=== PATIENT | male | born 1930 | race Caucasian/White ===

== ENCOUNTER → 2016-10-04 | Outpatient (CLI) | payer MEDICARE, BC ==
[2016-10-04 11:50] LABS: ABSOLUTE EOSINOPHILS # (AUTO) 0.1 10^3/uL (0.0-0.6); ABSOLUTE LYMPHOCYTES (AUTO) 0.5 10^3/uL (0.5-4.7); ABSOLUTE MONOCYTES (AUTO) 0.6 10^3/uL (0.1-1.4); BASOPHILS % (AUTO) 0.4 % (0-2); EOSINOPHILS % (AUTO) 2.5 % (0-6); HEMATOCRIT 36.7 % (37.9-51.0); HEMOGLOBIN 12.4 g/dL (13.5-17.0); HGB HCT DIFFERENCE 0.5; MEAN CORPUSCULAR HEMOGLOBIN 34.3 pg (27.0-33.4); MEAN CORPUSCULAR HGB CONC 33.8 g/dL (32.0-36.0); MEAN CORPUSCULAR VOLUME 101 fl (80-97); MONOCYTES % (AUTO) 11.1 % (3-13); RED BLOOD COUNT 3.62 10^6/uL (4.35-5.55); RED CELL DISTRIBUTION WIDTH 13.1 % (11.5-14.0); WHITE BLOOD COUNT 5.3 10^3/uL (4.0-10.5)
[2016-10-04 11:51] LABS: APPEARANCE,URINE CLEAR; BILIRUBIN,URINE NEGATIVE (NEGATIVE); GLUCOSE, URINE NEGATIVE (NEGATIVE); KETONES,URINE NEGATIVE (NEGATIVE); LEUKOCYTE ESTERASE,URINE NEGATIVE (NEGATIVE); NITRITE,URINE NEGATIVE (NEGATIVE); PROTEIN,URINE NEGATIVE (NEGATIVE); URINE SPECIFIC GRAVITY 1.012; UROBILINOGEN,URINE NEGATIVE mg/dL (<2.0)
[2016-10-04 12:07] LABS: ANION GAP 14 (5-19); BLOOD UREA NITROGEN 25 mg/dL (7-20); CALCIUM 9.9 mg/dL (8.4-10.2); CARBON DIOXIDE 27 mmol/L (22-30); CHLORIDE 102 mmol/L (98-107); CHOLESTEROL 142.23 mg/dL (0-200); CREATININE RESULT 1.22 mg/dL (0.52-1.25); Direct HDL 49 mg/dL (>40); GLUCOSE 103 mg/dL (75-110); POTASSIUM 4.1 mmol/L (3.6-5.0); SODIUM 142.8 mmol/L (137-145); TRIGLYCERIDES 86 mg/dL (<150)
[2016-10-04 12:22] LABS: DIRECT LDL 77 mg/dL (<100)
== END ==
LOC: OD 10:53
PROVIDERS: ATTEND Internal Medicine Cardiovascular Disease
DX: Z79.01 Long term (current) use of anticoagulants (principal); Z79.899 Other long term (current) drug therapy; E78.2 Mixed hyperlipidemia
CPT/HCPCS: 36415; 80048; 80061; 81001; 82272; 85025; 85730

== ENCOUNTER → 2016-11-09 | Outpatient (CLI) | payer MEDICARE, BC ==
[2016-11-09 10:15] LABS: ABSOLUTE EOSINOPHILS # (AUTO) 0.1 10^3/uL (0.0-0.6); ABSOLUTE LYMPHOCYTES (AUTO) 0.6 10^3/uL (0.5-4.7); ABSOLUTE NEUT (AUTO) 6.2 10^3/uL (1.7-8.2); BASOPHILS % (AUTO) 0.3 % (0-2); EOSINOPHILS % (AUTO) 1.5 % (0-6); HEMATOCRIT 37.7 % (37.9-51.0); HEMOGLOBIN 12.8 g/dL (13.5-17.0); HGB HCT DIFFERENCE 0.7; LYMPHOCYTES % (AUTO) 7.8 % (13-45); MEAN CORPUSCULAR HEMOGLOBIN 34.7 pg (27.0-33.4); MEAN CORPUSCULAR VOLUME 102 fl (80-97); RED CELL DISTRIBUTION WIDTH 13.7 % (11.5-14.0); SEGMENTED NEUTROPHILS % (AUTO) 77.4 % (42-78)
[2016-11-09 10:41] LABS: ALANINE AMINOTRANSFERASE 31 U/L (21-72); ALBUMIN 4.2 g/dL (3.5-5.0); ALKALINE PHOSPHATASE 82 U/L (38-126); ANION GAP 13 (5-19); ASPARTATE AMINO TRANSFERASE 25 U/L (17-59); BLOOD UREA NITROGEN 30 mg/dL (7-20); CALCIUM 10.2 mg/dL (8.4-10.2); CARBON DIOXIDE 27 mmol/L (22-30); CHLORIDE 100 mmol/L (98-107); Direct HDL 44 mg/dL (>40); GLUCOSE 103 mg/dL (75-110); POTASSIUM 4.6 mmol/L (3.6-5.0); SODIUM 140.4 mmol/L (137-145); TRIGLYCERIDES 153 mg/dL (<150)
[2016-11-09 10:52] LABS: DIRECT LDL 71 mg/dL (<100)
[2016-11-09 10:54] LABS: VLDL CHOLESTEROL 30.6 mg/dL (10-31)
[2016-11-10 13:38] LABS: CREATININE URINE 66.6 mg/dL (Not Estab.); MICROALBUMIN URINE 28.1 ug/mL (Not Estab.)
== END ==
LOC: OD 09:09
PROVIDERS: ATTEND Internal Medicine Nephrology
DX: N18.3 Chronic kidney disease, stage 3 (moderate) (principal); E78.2 Mixed hyperlipidemia; D64.9 Anemia, unspecified
CPT/HCPCS: 36415; 80053; 80061; 82043; 82570; 85025

== ENCOUNTER → 2016-12-26 | Outpatient (CLI) | payer MEDICARE, BC ==
[2016-12-26 11:21] LABS: ABSOLUTE EOSINOPHILS # (AUTO) 0.2 10^3/uL (0.0-0.6); ABSOLUTE LYMPHOCYTES (AUTO) 0.6 10^3/uL (0.5-4.7); ABSOLUTE MONOCYTES (AUTO) 0.7 10^3/uL (0.1-1.4); ABSOLUTE NEUT (AUTO) 3.9 10^3/uL (1.7-8.2); BASOPHILS % (AUTO) 0.6 % (0-2); EOSINOPHILS % (AUTO) 3.1 % (0-6); HEMOGLOBIN 12.5 g/dL (13.5-17.0); HGB HCT DIFFERENCE 1.5; LYMPHOCYTES % (AUTO) 11.8 % (13-45); MEAN CORPUSCULAR HEMOGLOBIN 34.5 pg (27.0-33.4); MEAN CORPUSCULAR HGB CONC 34.8 g/dL (32.0-36.0); MEAN CORPUSCULAR VOLUME 99 fl (80-97); MONOCYTES % (AUTO) 12.4 % (3-13); RED BLOOD COUNT 3.63 10^6/uL (4.35-5.55); RED CELL DISTRIBUTION WIDTH 13.6 % (11.5-14.0); SEGMENTED NEUTROPHILS % (AUTO) 72.1 % (42-78); WHITE BLOOD COUNT 5.4 10^3/uL (4.0-10.5)
[2016-12-26 11:40] LABS: APPEARANCE,URINE CLEAR; BILIRUBIN,URINE NEGATIVE (NEGATIVE); GLUCOSE, URINE NEGATIVE (NEGATIVE); KETONES,URINE NEGATIVE (NEGATIVE); LEUKOCYTE ESTERASE,URINE NEGATIVE (NEGATIVE); NITRITE,URINE NEGATIVE (NEGATIVE); PROTEIN,URINE NEGATIVE (NEGATIVE); URINE SPECIFIC GRAVITY 1.012; UROBILINOGEN,URINE NEGATIVE mg/dL (<2.0)
[2016-12-26 11:42] LABS: ALANINE AMINOTRANSFERASE 29 U/L (21-72); ALBUMIN 4.3 g/dL (3.5-5.0); ALKALINE PHOSPHATASE 80 U/L (38-126); ANION GAP 15 (5-19); ASPARTATE AMINO TRANSFERASE 26 U/L (17-59); BILIRUBIN,DIRECT 0.4 mg/dL (0.0-0.4); BILIRUBIN,TOTAL 0.8 mg/dL (0.2-1.3); BLOOD UREA NITROGEN 31 mg/dL (7-20); CALCIUM 9.9 mg/dL (8.4-10.2); CARBON DIOXIDE 26 mmol/L (22-30); CHLORIDE 104 mmol/L (98-107); CREATININE RESULT 1.23 mg/dL (0.52-1.25); GLUCOSE 105 mg/dL (75-110); POTASSIUM 4.1 mmol/L (3.6-5.0); SODIUM 144.6 mmol/L (137-145); TOTAL PROTEIN 8.1 g/dL (6.3-8.2)
== END ==
LOC: OD 10:38
PROVIDERS: ATTEND Internal Medicine Cardiovascular Disease
DX: Z79.01 Long term (current) use of anticoagulants (principal); Z79.899 Other long term (current) drug therapy
CPT/HCPCS: 36415; 80048; 80076; 81001; 82272; 85025; 85730

== ENCOUNTER → 2017-03-21 | Outpatient (CLI) | payer MEDICARE, BC ==
[2017-03-21 10:22] LABS: ABSOLUTE EOSINOPHILS # (AUTO) 0.1 10^3/uL (0.0-0.6); ABSOLUTE LYMPHOCYTES (AUTO) 0.6 10^3/uL (0.5-4.7); ABSOLUTE MONOCYTES (AUTO) 0.7 10^3/uL (0.1-1.4); ABSOLUTE NEUT (AUTO) 3.6 10^3/uL (1.7-8.2); BASOPHILS % (AUTO) 0.6 % (0-2); EOSINOPHILS % (AUTO) 2.3 % (0-6); HEMATOCRIT 35.3 % (37.9-51.0); HEMOGLOBIN 12.2 g/dL (13.5-17.0); HGB HCT DIFFERENCE 1.3; LYMPHOCYTES % (AUTO) 12.1 % (13-45); MEAN CORPUSCULAR HEMOGLOBIN 34.7 pg (27.0-33.4); MEAN CORPUSCULAR HGB CONC 34.5 g/dL (32.0-36.0); MEAN CORPUSCULAR VOLUME 101 fl (80-97); MONOCYTES % (AUTO) 14.2 % (3-13); RED BLOOD COUNT 3.51 10^6/uL (4.35-5.55); RED CELL DISTRIBUTION WIDTH 13.6 % (11.5-14.0); SEGMENTED NEUTROPHILS % (AUTO) 70.8 % (42-78); WHITE BLOOD COUNT 5.1 10^3/uL (4.0-10.5)
[2017-03-21 10:31] LABS: APPEARANCE,URINE CLEAR; BILIRUBIN,URINE NEGATIVE (NEGATIVE); GLUCOSE, URINE NEGATIVE (NEGATIVE); KETONES,URINE NEGATIVE (NEGATIVE); LEUKOCYTE ESTERASE,URINE NEGATIVE (NEGATIVE); NITRITE,URINE NEGATIVE (NEGATIVE); PROTEIN,URINE NEGATIVE (NEGATIVE); UROBILINOGEN,URINE NEGATIVE mg/dL (<2.0)
[2017-03-21 10:41] LABS: ALANINE AMINOTRANSFERASE 36 U/L (21-72); ALBUMIN 4.1 g/dL (3.5-5.0); ALKALINE PHOSPHATASE 71 U/L (38-126); ANION GAP 12 (5-19); ASPARTATE AMINO TRANSFERASE 26 U/L (17-59); BILIRUBIN,DIRECT 0.3 mg/dL (0.0-0.4); BILIRUBIN,TOTAL 0.8 mg/dL (0.2-1.3); BLOOD UREA NITROGEN 29 mg/dL (7-20); CALCIUM 9.4 mg/dL (8.4-10.2); CARBON DIOXIDE 26 mmol/L (22-30); CHLORIDE 104 mmol/L (98-107); CREATININE RESULT 1.18 mg/dL (0.52-1.25); GLUCOSE 100 mg/dL (75-110); POTASSIUM 4.1 mmol/L (3.6-5.0); SODIUM 142.4 mmol/L (137-145); TOTAL PROTEIN 7.8 g/dL (6.3-8.2)
== END ==
LOC: OD 09:15
PROVIDERS: ATTEND Internal Medicine Cardiovascular Disease
DX: Z79.01 Long term (current) use of anticoagulants (principal); Z79.899 Other long term (current) drug therapy
CPT/HCPCS: 36415; 80048; 80076; 81001; 82272; 85025; 85730

== ENCOUNTER → 2017-05-16 | Outpatient (CLI) | payer MEDICARE, BC ==
[2017-05-16 10:27] LABS: ABSOLUTE EOSINOPHILS # (AUTO) 0.1 10^3/uL (0.0-0.6); ABSOLUTE LYMPHOCYTES (AUTO) 0.7 10^3/uL (0.5-4.7); ABSOLUTE MONOCYTES (AUTO) 0.8 10^3/uL (0.1-1.4); ABSOLUTE NEUT (AUTO) 2.9 10^3/uL (1.7-8.2); EOSINOPHILS % (AUTO) 3.1 % (0-6); HEMATOCRIT 36.7 % (37.9-51.0); HEMOGLOBIN 12.9 g/dL (13.5-17.0); LYMPHOCYTES % (AUTO) 14.4 % (13-45); MEAN CORPUSCULAR HGB CONC 35.1 g/dL (32.0-36.0); MEAN CORPUSCULAR VOLUME 102 fl (80-97); MONOCYTES % (AUTO) 18.3 % (3-13); RED BLOOD COUNT 3.58 10^6/uL (4.35-5.55); RED CELL DISTRIBUTION WIDTH 13.7 % (11.5-14.0); SEGMENTED NEUTROPHILS % (AUTO) 63.2 % (42-78); WHITE BLOOD COUNT 4.6 10^3/uL (4.0-10.5)
[2017-05-16 10:50] LABS: ANION GAP 9 (5-19); BLOOD UREA NITROGEN 29 mg/dL (7-20); CALCIUM 10.2 mg/dL (8.4-10.2); CARBON DIOXIDE 29 mmol/L (22-30); CHLORIDE 102 mmol/L (98-107); CHOLESTEROL 153.92 mg/dL (0-200); Direct HDL 45 mg/dL (>40); GLUCOSE 98 mg/dL (75-110); POTASSIUM 4.2 mmol/L (3.6-5.0); SODIUM 139.8 mmol/L (137-145); TRIGLYCERIDES 188 mg/dL (<150)
[2017-05-16 11:01] LABS: DIRECT LDL 76 mg/dL (<100)
[2017-05-16 11:04] LABS: VLDL CHOLESTEROL 37.6 mg/dL (10-31)
[2017-05-17 11:40] LABS: CREATININE URINE 57.8 mg/dL (Not Estab.); MICROALBUMIN URINE 4.2 ug/mL (Not Estab.)
== END ==
LOC: OD 08:46
PROVIDERS: ATTEND Internal Medicine Nephrology
DX: N18.3 Chronic kidney disease, stage 3 (moderate) (principal); R80.9 Proteinuria, unspecified; D64.9 Anemia, unspecified; E78.2 Mixed hyperlipidemia
CPT/HCPCS: 36415; 80048; 80061; 82043; 82570; 85025

== ENCOUNTER 2017-06-03 07:42 | Inpatient (IN) | payer MEDICARE, BC ==
[2017-06-03] MEDS ORDERED: ALBUTEROL SULFATE 0.083% NEB 2.5 MG/3 ML AMPUL NEB ONE ×4 (07:59→08:07)
--- NOTE | 2017-06-03 08:08 | ER Document Report ---
ED Respiratory Problem - General Stated Complaint: DIFFICULTY BREATHING Time Seen by Provider: 06/03/17 08:03 Mode of Arrival: Medic Information source: Patient, Relative - Notes: 87-year-old male brought in by EMS because he woke up this morning shaking in in severe respiratory distress that his home oxygen 2 L nasal cannula and CPAP machine was not helping. He saw Dr. Lo and Dr. Diaz yesterday. He was started on erythromycin and steroids because of green sputum by Dr. Lo. Past medical history: Coronary artery bypass graft, CHF, COPD, pacemaker. TRAVEL OUTSIDE OF THE [place] IN LAST 30 DAYS: No - Related Data Allergies/Adverse Reactions: No Known Allergies Allergy (Verified 10/18/15 13:31) Home Medications: Current Home Medications Azithromycin 250 mg PO DAILY 06/03/17 [History] B12/FA/D3/Calc Cit/Zn Aa Chelt [Rx Balance Int Capsule] 1 cap PO DAILY PRN 06/03 [History] Bumetanide 1 mg PO BID 06/03/17 [History] Eplerenone 50 mg PO ASDIR PRN 06/03/17 [History] Finasteride 5 mg PO DAILY 06/03/17 [History] Prednisone 20 mg PO DAILY 06/03/17 [History] Past Medical History - General Information source: Patient, Relative - - Social History Smoking Status: Former Smoker Frequency of alcohol use: None Drug Abuse: None Lives with: Spouse/Significant other Family History: Reviewed & Not Pertinent - Past Medical History Cardiac Medical History: Reports: Hx Atrial Fibrillation, Hx Congestive Heart Failure, Hx 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 bypass in , Hx Coronary Artery Bypass Graft, Hx Pacemaker - medtronic, Hx Vascular Surgery - Immunizations Hx Diphtheria, Pertussis, Tetanus Vaccination: Yes Hx Pneumococcal Vaccination: 04/04/12 Review of Systems - Review of Systems Constitutional: No symptoms reported EENT: No symptoms reported Cardiovascular: No symptoms reported Respiratory: See HPI Gastrointestinal: No symptoms reported Genitourinary: No symptoms reported Male Genitourinary: No symptoms reported Musculoskeletal: No symptoms reported Skin: No symptoms reported Hematologic/Lymphatic: No symptoms reported Neurological/Psychological: No symptoms reported Physical Exam - Vital signs Vitals: Resp Pulse Ox 22 H 93 06/03/17 07:49 06/03/17 07:49 Interpretation: Hypertensive, Tachypneic, Other - paced rhythm - General General appearance: Alert, Anxious In distress: Severe - tachypnea - HEENT Head: Normocephalic, Atraumatic Eyes: Normal Pupils: PERRL Neck: Supple. No: Lymphadenopathy - Respiratory Respiratory status: Respiratory distress, Labored, Tachypnea, Other - using shoulders/neck to breath Chest status: Nontender Breath sounds: Decreased air movement, Productive cough - at home, Wheezing - mild Chest palpation: Normal - Cardiovascular Rhythm: Regular Heart sounds: Normal auscultation Murmur: No - Abdominal Inspection: Normal Distension: No distension Bowel sounds: Normal Tenderness: Nontender. No: Tender Organomegaly: No organomegaly - Back Back: Normal, Nontender - Extremities General upper extremity: Normal inspection, Nontender, Normal color, Normal ROM , Normal temperature General lower extremity: Normal inspection, Nontender, Normal color, Normal ROM , Normal temperature, Normal weight bearing. No: José Luis's sign - Neurological Neuro grossly intact: Yes Cognition: Normal Orientation: AAOx4 [place] Coma Scale Eye Opening: Spontaneous [place] Coma Scale Verbal: Oriented [place] Coma Scale Motor: Obeys Commands Kassandra Coma Scale Total: 15 Speech: Normal Motor strength normal: LUE, RUE, LLE, RLE Sensory: Normal - Psychological Associated symptoms: Normal affect, Anxious - Skin Skin Temperature: Warm Skin Moisture: Dry Skin Color: Normal Skin irregularity: negative: Rash Course - Re-evaluation Re-evalutation: 06/03/17 08:03 Dr. John is been in the room and seen the patient and agrees with the BiPAP 06/03/17 08:42 ABG oxygen 120s so the FiO2 on the BiPAP was reduced to 35%, Levaquin 750 mg IV started the lactic acid is 3.3. Will have pt admitted to dr. willoughby per dr. nicolas. Pt more comfortable and no distress after Bipap placed. 06/03/17 08:48 dr. busteed will admit to IMCU. 06/03/17 09:16 pt and his wanted me to call dr. west and let him know that he is admitted, I spoke with him. Will also notify dr. diaz per family request. 06/03/17 09:17 - Vital Signs Vital signs: Temp Pulse Resp BP Pulse Ox 99.5 F 86 20 134/56 H 91 L 06/03/17 07:50 06/03/17 07:50 06/03/17 08:13 06/03/17 08:13 06/03/17 08:28 - Laboratory Result Diagrams: 06/03/17 08:00 06/03/17 08:00 Laboratory results interpreted by me: 06/03/17 06/03/17 06/03/17 08:00 08:00 08:00 WBC 11.8 H RBC 3.51 L Hgb 12.6 L Hct 35.6 L MCV 102 H MCH 36.0 H Plt Count 141 L Seg Neutrophils % 82.6 H Lymphocytes % 6.2 L Absolute Neutrophils 9.7 H ABG pO2 ABG O2 Saturation BUN 34 H Creatinine 1.34 H Est GFR (Non-Af Amer) 51 L Glucose 153 H Lactic Acid 3.3 H Direct Bilirubin 0.6 H NT-Pro-B Natriuret Pep 06/03/17 06/03/17 08:00 08:00 WBC RBC Hgb Hct MCV MCH Plt Count Seg Neutrophils % Lymphocytes % Absolute Neutrophils ABG pO2 120.5 H ABG O2 Saturation 98.4 H BUN Creatinine Est GFR (Non-Af Amer) Glucose Lactic Acid Direct Bilirubin NT-Pro-B Natriuret Pep 3450 H Discharge - Discharge Clinical Impression: COPD exacerbation, Respiratory distress, Mild congestive heart failure Condition: Fair Disposition: ADMITTED INPATIENT Admitting Provider: Hospitalist Unit Admitted: [facility]
[2017-06-03 08:20] LABS: ABSOLUTE EOSINOPHILS # (AUTO) 0.1 10^3/uL (0.0-0.6); ABSOLUTE LYMPHOCYTES (AUTO) 0.7 10^3/uL (0.5-4.7); ABSOLUTE MONOCYTES (AUTO) 1.2 10^3/uL (0.1-1.4); ABSOLUTE NEUT (AUTO) 9.7 10^3/uL (1.7-8.2); BASOPHILS % (AUTO) 0.3 % (0-2); EOSINOPHILS % (AUTO) 0.6 % (0-6); HEMATOCRIT 35.6 % (37.9-51.0); HEMOGLOBIN 12.6 g/dL (13.5-17.0); HGB HCT DIFFERENCE 2.2; LYMPHOCYTES % (AUTO) 6.2 % (13-45); MEAN CORPUSCULAR HGB CONC 35.5 g/dL (32.0-36.0); MEAN CORPUSCULAR VOLUME 102 fl (80-97); MONOCYTES % (AUTO) 10.3 % (3-13); RED BLOOD COUNT 3.51 10^6/uL (4.35-5.55); RED CELL DISTRIBUTION WIDTH 13.6 % (11.5-14.0); SEGMENTED NEUTROPHILS % (AUTO) 82.6 % (42-78); WHITE BLOOD COUNT 11.8 10^3/uL (4.0-10.5)
[2017-06-03 08:24] LABS: VENOUS BLOOD BASE EXCESS -1.5 mmol/L; VENOUS BLOOD PCO2 43.1 mmHg (35-63); VENOUS BLOOD PH 7.36 (7.30-7.42)
[2017-06-03 08:26] LABS: PROTHROMBIN TIME 15.1 SEC (11.4-15.4)
[2017-06-03 08:27] LABS: ARTERIAL BLOOD BASE EXCESS -2.1 mmol/L; ARTERIAL BLOOD O2 SATURATION 98.4 % (94-98)
[2017-06-03 08:42] LABS: ALANINE AMINOTRANSFERASE 28 U/L (21-72); ALBUMIN 4.4 g/dL (3.5-5.0); ALKALINE PHOSPHATASE 82 U/L (38-126); ANION GAP 15 (5-19); ASPARTATE AMINO TRANSFERASE 28 U/L (17-59); BILIRUBIN,DIRECT 0.6 mg/dL (0.0-0.4); BILIRUBIN,TOTAL 1.3 mg/dL (0.2-1.3); BLOOD UREA NITROGEN 34 mg/dL (7-20); CALCIUM 9.8 mg/dL (8.4-10.2); CARBON DIOXIDE 23 mmol/L (22-30); CHLORIDE 102 mmol/L (98-107); CREATINE KINASE 63 U/L (55-170); CREATININE RESULT 1.34 mg/dL (0.52-1.25); GLUCOSE 153 mg/dL (75-110); POTASSIUM 3.7 mmol/L (3.6-5.0); SODIUM 139.8 mmol/L (137-145)
--- NOTE | 2017-06-03 08:42 | RADIOLOGY REPORT (SQ) ---
EXAM DESCRIPTION: CHEST SINGLE VIEW COMPLETED DATE/TIME: 06/03/2017 8:25 am REASON FOR STUDY: bed 12 sepsis protocol COMPARISON: CT chest 12/25/2015 Chest films 12/11/2015, 10/18/2015 EXAM PARAMETERS: NUMBER OF VIEWS: One view. TECHNIQUE: Single frontal radiographic view of the chest acquired. RADIATION DOSE: NA LIMITATIONS: None. FINDINGS: LUNGS AND PLEURA: Pulmonary vascular prominence is present with mild alveolar and intersti tial edema. No pleural effusions. No pneumothorax. MEDIASTINUM AND HILAR STRUCTURES: No masses. Contour normal. HEART AND VASCULAR STRUCTURES: Post CABG. Moderate stable cardiomegaly. BONES: Osteopenic HARDWARE: Left-sided dual lead pacemaker OTHER: No other significant finding. IMPRESSION: Cardiomegaly with pulmonary vascular prominence and mild alveolar and interstitial edema TECHNICAL DOCUMENTATION: JOB ID: [id number]
[2017-06-03 08:55] LABS: CREATINE KINASE MB 2.23 ng/mL (<4.55)
[2017-06-03 08:58] LABS: TROPONIN I 0.054 ng/mL
[2017-06-03] MEDS ORDERED: LEVOFLOXACIN 750 MG/D5W RTU 750 MG/150 ML RTUPB IV SCH ×2 (09:00→10:00)
[2017-06-03] MEDS ORDERED: FUROSEMIDE INJ/PF 40 MG/4 ML SDV IV ONE (09:32)
[2017-06-03 09:33] LABS: APPEARANCE,URINE CLEAR; BILIRUBIN,URINE NEGATIVE (NEGATIVE); GLUCOSE, URINE NEGATIVE (NEGATIVE); KETONES,URINE NEGATIVE (NEGATIVE); LEUKOCYTE ESTERASE,URINE NEGATIVE (NEGATIVE); NITRITE,URINE NEGATIVE (NEGATIVE); PROTEIN,URINE NEGATIVE (NEGATIVE); UROBILINOGEN,URINE NEGATIVE mg/dL (<2.0)
[2017-06-03] MEDS ORDERED: LEVALBUTEROL HCL NEB 1.25 MG/3 ML AMPUL NEB PRN (10:14)
[2017-06-03] MEDS ORDERED: ONDANSETRON HCL INJ/PF 4 MG/2 ML SDV IV PRN (10:14)
[2017-06-03] MEDS ORDERED: ACETAMINOPHEN 325 MG TABLET PO PRN (10:14)
[2017-06-03] MEDS ORDERED: ONDANSETRON 4 MG TAB.RAPDIS PO PRN (10:14)
[2017-06-03] MEDS ORDERED: D3 PO PRN (10:21)
[2017-06-03] MEDS ORDERED: B12 PO PRN (10:21)
[2017-06-03] MEDS ORDERED: FLUTICASONE/SALMETEROL DISKUS 500-50 MCG/DOSE IH PRN (10:21)
[2017-06-03] MEDS ORDERED: EPLERENONE 50 MG PO PRN (10:21)
[2017-06-03] MEDS ORDERED: [UNRECOGNIZED DRUG - OTHER] PO PRN (10:21)
--- NOTE | 2017-06-03 11:02 | PDOC H&P ---
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 The patient yesterday when he had worsening symptoms and choked on a piece of lettuce and had a coughing spell. This morning he reports that he woke up with a low-grade fever along with wheezing this morning about 5 AM. Presented to the emergency room. He denied having any chest pain. He has had the shortness of breath and wheezing. He has had also a productive cough of yellow sputum. He denies any orthopnea or PND but does have some lower extremity edema. He does have a history of congestive heart failure but denies any change in his weight. He also has COPD and obstructive sleep apnea. When he presented to emergency room he was found to have significant wheezing and was placed on BiPAP. He reports he is feeling much better now on BiPAP. Past Medical History Cardiac Medical History: Reports: Atrial Fibrillation, Congestive Heart Failure - Diastolic dysfunction, Coronary Artery Disease - CAROIDECTOMY LEFT SIDE, Myocardial Infarction, Hyperlipidema, Hypertension, Peripheral Vascular Disease Pulmonary Medical History: Reports: Asthma, Bronchitis, Chronic Obstructive Pulmonary Disease (COPD), Pneumonia, Sleep Apnea - On CPAP at home Neurological Medical History: Denies: Seizures Endocrine Medical History: Reports: None Renal/ Medical History: Reports: Chronic Kidney Disease Malignancy Medical History: Reports: Skin Cancer GI Medical History: Reports: Gastroesophageal Reflux Disease Musculoskeltal Medical History: Reports: Arthritis Psychiatric Medical History: Reports: Depression Hematology: Reports: Anemia Infectious Medical History: Reports: None Past Surgical History Past Surgical History: Reports: Coronary Artery Bypass Graft, Pacemaker - medtronic, Vascular Surgery - Left carotid endarterectomy. Endovascular AAA repair Social History Information Source: Patient Lives with: Spouse/Significant other Smoking Status: Former Smoker Frequency of Alcohol Use: None Hx Recreational Drug Use: No Drugs: None Hx Prescription Drug Abuse: No - Advance Directive Resuscitation Status: Full Code Surrogate healthcare decision maker:: Family History Family History: Father had diabetes, CVA, coronary artery disease, bladder cancer. Mother had hypertension and congestive heart failure. Parental Family History Reviewed: Yes Children Family History Reviewed: No Sibling(s) Family History Reviewed.: No Medication/Allergy Home Medications: Multivitamin [Multivitamins] 1 each PO DAILY 05/14/12 Tamsulosin HCl [Flomax 0.4 mg Cap.sr] 0.4 mg PO DAILY 05/30/12 Escitalopram Oxalate [Lexapro 10 mg Tablet] 10 mg PO DAILY #0 tablet 09/24/13 Montelukast Sodium [Singulair 10 mg Tablet] 10 mg PO QHS 04/02/14 Ferrous Sulfate [Feosol 325 mg Tablet] 325 mg PO Q2D 01/15/15 Fluticasone/Salmeterol [Advair 500-50 Diskus 28 Dose] 1 inh IH Q12H PRN Albuterol Sulfate [Proair HFA Inhalation Aerosol 8.5 gm MDI] 2 puff IH QID PRN 01/16/15 Fluticasone Propionate [Flovent Diskus 50 mcg] 1 puff IH DAILY 04/16/15 Simvastatin [Zocor 10 mg Tablet] 20 mg PO QHS #0 tablet 04/22/15 Clopidogrel Bisulfate [Clopidogrel] 75 mg PO DAILY 10/18/15 Bumetanide [Bumex 1 mg Tablet] 1 mg PO BID #0 tablet 10/20/15 Docusate Sodium [Colace 100 mg Capsule] 100 mg PO BID PRN #0 capsule 10/20/15 Losartan Potassium [Cozaar 50 mg Tablet] 100 mg PO DAILY #0 tablet 10/20/15 Azithromycin 250 mg PO DAILY 06/03/17 B12/FA/D3/Calc Cit/Zn Aa Chelt [Rx Balance Int Capsule] 1 cap PO DAILY PRN 06/03 Bumetanide 1 mg PO BID 06/03/17 Eplerenone 50 mg PO ASDIR PRN 06/03/17 Finasteride 5 mg PO DAILY 06/03/17 Prednisone 20 mg PO DAILY 06/03/17 Allergies/Adverse Reactions: No Known Allergies Allergy (Verified 10/18/15 13:31) Review of Systems Constitutional: PRESENT: fever(s). ABSENT: chills, headache(s), night sweats, weight gain, weight loss Eyes: ABSENT: visual disturbances Ears: ABSENT: hearing changes Cardiovascular: PRESENT: dyspnea on exertion, edema. ABSENT: chest pain, orthropnea, palpitations Respiratory: PRESENT: as per HPI Gastrointestinal: ABSENT: abdominal pain, constipation, diarrhea, hematemesis, hematochezia, nausea, vomiting Genitourinary: ABSENT: dysuria, hematuria Musculoskeletal: ABSENT: joint swelling Integumentary: ABSENT: rash, wounds Neurological: ABSENT: abnormal gait, abnormal speech, confusion, dizziness, focal weakness, syncope Psychiatric: ABSENT: anxiety, depression Endocrine: ABSENT: cold intolerance, heat intolerance, polydipsia, polyuria Physical Exam Vital Signs: Temp Pulse Resp BP Pulse Ox 99.5 F 86 25 H 113/78 96 06/03/17 07:50 06/03/17 07:50 06/03/17 10:01 06/03/17 10:00 06/03/17 10:01 General appearance: PRESENT: mild distress Eye exam: PRESENT: conjunctiva pink, EOMI, PERRLA. ABSENT: scleral icterus Ear exam: PRESENT: normal external ear exam Mouth exam: PRESENT: moist, tongue midline Neck exam: ABSENT: JVD Respiratory exam: PRESENT: wheezes. ABSENT: rales, rhonchi Cardiovascular exam: PRESENT: RRR. ABSENT: diastolic murmur, rubs, systolic murmur Pulses: PRESENT: normal dorsalis pedis pul Vascular exam: PRESENT: normal capillary refill GI/Abdominal exam: PRESENT: normal bowel sounds, soft. ABSENT: distended, guarding, mass, organolmegaly, rebound, tenderness Rectal exam: PRESENT: deferred Extremities exam: PRESENT: pedal edema - Trace pedal edema. ABSENT: calf tenderness, clubbing Neurological exam: PRESENT: alert, awake, oriented to person, oriented to place , oriented to time, oriented to situation, CN II-XII grossly intact. ABSENT: motor sensory deficit Psychiatric exam: PRESENT: appropriate affect Skin exam: PRESENT: dry, intact, warm. ABSENT: cyanosis, rash Results Impressions: Chest X-Ray 06/03/17 07:45 IMPRESSION: Cardiomegaly with pulmonary vascular prominence and mild alveolar and interstitial edema Assessment & Plan - Diagnosis (1) Respiratory distress Is this a current diagnosis for this admission?: Yes Plan: The patient presents with acute respiratory distress secondary to an acute COPD exacerbation and bronchitis. Patient was treated with Zithromax and prednisone as an outpatient. He has improved since being placed on a BiPAP. We will give IV Solu-Medrol, Levaquin, BiPAP and nebulizers. The patient chronically is on oxygen 2 L per nasal cannula at home. (2) COPD exacerbation Is this a current diagnosis for this admission?: Yes Plan: Patient has acute COPD exacerbation secondary to bronchitis. Will continue with Levaquin, Solu-Medrol, BiPAP and oxygen. (3) Acute bronchitis Is this a current diagnosis for this admission?: Yes Plan: Will treat with Levaquin. (4) BPH (benign prostatic hyperplasia) Is this a current diagnosis for this admission?: Yes (5) CAD (coronary artery disease) Is this a current diagnosis for this admission?: Yes Plan: Patient denies any chest pain. Will continue with the Plavix. (6) CKD (chronic kidney disease), stage III Is this a current diagnosis for this admission?: Yes Plan: Patient is somewhat volume overloaded at this time. He has received IV Lasix and will continue with p.o. Bumex. (7) Essential hypertension Is this a current diagnosis for this admission?: Yes (8) Hypercholesterolemia Is this a current diagnosis for this admission?: Yes (9) Obesity Is this a current diagnosis for this admission?: Yes (10) Obstructive sleep apnea on CPAP Is this a current diagnosis for this admission?: Yes Plan: Patient is currently on BiPAP. (11) PVD (peripheral vascular disease) Is this a current diagnosis for this admission?: Yes Plan: Patient has been on Pletal. - Time Time Spent: 50 to 70 Minutes - Inpatient Certification Medical Necessity: Need Close Monitoring Due to Risk of Patient Decompensation, Need for IV Antibiotics - Plan Summary Plan Summary: Patient requests to be a full code. Will admit as a full admission as I anticipated this will require greater than a 2 midnight hospital stay.
[2017-06-03] MEDS ORDERED: MULTIVITAMIN TABLET PO ONE (13:00)
[2017-06-03] MEDS ORDERED: EPLERENONE 25 MG TABLET PO ONE (13:30)
[2017-06-03] MEDS: IPRATROPIUM/ALBUTEROL 0.5-2.5 MG/3 ML AMPUL NEB SCH ×2 (14:07→19:50)
[2017-06-03] MEDS ORDERED: BUMETANIDE INJ/PF 1 MG/4 ML SDV ONE (16:47)
[2017-06-03] MEDS ORDERED: BUMETANIDE 1 MG TABLET ONE (16:55)
--- NOTE | 2017-06-03 17:04 | EKG REPORT ---
SEVERITY:- ABNORMAL ECG - VENTRICULAR-PACED COMPLEXES : Confirmed by: Suman Elizabeth MD 03-Jun-2017 17:03:51
[2017-06-03] MEDS: BUMETANIDE 1 MG TABLET PO SCH (17:11)
[2017-06-03] MEDS: DOCUSATE SODIUM 100 MG CAPSULE PO SCH (17:12)
[2017-06-03] MEDS: METHYLPREDNISOLONE INJ 40 MG/1 ML SDV IV SCH ×2 (17:12→22:13)
[2017-06-03] MEDS: MONTELUKAST SODIUM 10 MG TABLET PO SCH (17:12)
[2017-06-03] MEDS: TAMSULOSIN HCL 0.4 MG CAP.SR.24H PO SCH (17:13)
[2017-06-03] MEDS: CILOSTAZOL 100 MG TABLET PO SCH (17:14)
[2017-06-03] MEDS: GUAIFENESIN 600 MG TABLET.SA PO SCH (17:16)
[2017-06-03] MEDS: SIMVASTATIN 10 MG TABLET PO SCH (22:13)
[2017-06-03] MEDS: FLUTICASONE/SALMETEROL DISKUS 250-50 MCG/DOSE IH SCH (22:13)
[2017-06-03] MEDS: FAMOTIDINE 20 MG TABLET PO SCH (22:14)
[2017-06-03] MEDS ORDERED: APIXABAN 2.5 MG TABLET PO ONE (23:30)
[2017-06-04] MEDS: IPRATROPIUM/ALBUTEROL 0.5-2.5 MG/3 ML AMPUL NEB SCH ×4 (02:16→19:49)
[2017-06-04] MEDS: METHYLPREDNISOLONE INJ 40 MG/1 ML SDV IV SCH ×3 (06:21→21:37)
[2017-06-04 07:17] LABS: HEMATOCRIT 31.3 % (37.9-51.0); HGB HCT DIFFERENCE 1.7; MEAN CORPUSCULAR HEMOGLOBIN 35.4 pg (27.0-33.4); MEAN CORPUSCULAR HGB CONC 35.2 g/dL (32.0-36.0); MEAN CORPUSCULAR VOLUME 101 fl (80-97); RED CELL DISTRIBUTION WIDTH 13.7 % (11.5-14.0); WHITE BLOOD COUNT 10.5 10^3/uL (4.0-10.5)
[2017-06-04 07:40] LABS: ANION GAP 15 (5-19); BLOOD UREA NITROGEN 47 mg/dL (7-20); CALCIUM 9.6 mg/dL (8.4-10.2); CARBON DIOXIDE 22 mmol/L (22-30); CHLORIDE 99 mmol/L (98-107); CREATININE RESULT 1.51 mg/dL (0.52-1.25); GLUCOSE 153 mg/dL (75-110); POTASSIUM 3.8 mmol/L (3.6-5.0); SODIUM 135.7 mmol/L (137-145)
[2017-06-04 08:34] LABS: BAND NEUTROPHILS % (MANUAL) 2 % (3-5); BASOPHILS % (MANUAL) 0 % (0-2); EOSINOPHILS % (MANUAL) 0 % (0-6); LYMPHOCYTES % (MANUAL) 5 % (13-45); TOTAL CELLS COUNTED 100
[2017-06-04 08:35] LABS: ANISOCYTOSIS SLIGHT; POLYCHROMASIA SLIGHT
[2017-06-04] MEDS: FLUTICASONE/SALMETEROL DISKUS 250-50 MCG/DOSE IH SCH ×2 (09:17→21:37)
[2017-06-04] MEDS: FINASTERIDE 5 MG TABLET PO SCH (09:18)
[2017-06-04] MEDS: CLOPIDOGREL BISULFATE 75 MG TABLET PO SCH (09:18)
[2017-06-04] MEDS: FERROUS SULFATE 325 MG TABLET PO SCH (09:19)
[2017-06-04] MEDS: LOSARTAN POTASSIUM 50 MG TABLET PO SCH (09:19)
[2017-06-04] MEDS: GUAIFENESIN 600 MG TABLET.SA PO SCH ×2 (09:20→17:07)
[2017-06-04] MEDS: ESCITALOPRAM OXALATE 10 MG TABLET PO SCH (09:20)
[2017-06-04] MEDS: FAMOTIDINE 20 MG TABLET PO SCH ×2 (09:20→21:37)
[2017-06-04] MEDS: MULTIVITAMIN TABLET PO SCH (09:20)
[2017-06-04] MEDS: CILOSTAZOL 100 MG TABLET PO SCH ×2 (09:20→15:07)
[2017-06-04] MEDS: EPLERENONE 25 MG TABLET PO SCH (09:21)
[2017-06-04] MEDS: APIXABAN 2.5 MG TABLET PO SCH ×2 (09:22→17:08)
[2017-06-04] MEDS: BUMETANIDE 1 MG TABLET PO SCH ×2 (09:37→17:07)
[2017-06-04] MEDS: DOCUSATE SODIUM 100 MG CAPSULE PO SCH ×2 (09:51→15:06)
[2017-06-04] MEDS ORDERED: ENOXAPARIN SODIUM INJ 40 MG/0.4 ML DISP.SYRIN SUBCUT SCH (10:00)
[2017-06-04] MEDS: MONTELUKAST SODIUM 10 MG TABLET PO SCH (17:07)
[2017-06-04] MEDS: TAMSULOSIN HCL 0.4 MG CAP.SR.24H PO SCH (17:07)
--- NOTE | 2017-06-04 17:53 | PDOC PROGRESS REPORT ---
Subjective Progress Note for:: 06/04/17 Subjective:: This is a follow-up visit for acute respiratory failure due to COPD exacerbation. The patient is sitting on the edge of his bed and says that he feels better overall from when he was first admitted. He gives me a detailed story about how he came into the hospital. No acute events overnight. He complains that he has not had a bowel movement. Physical Exam Vital Signs: Temp Pulse Resp BP Pulse Ox 97.6 F 61 20 121/46 L 98 06/04/17 08:34 06/04/17 08:34 06/04/17 08:34 06/04/17 08:34 06/04/17 08:34 Intake & Output 06/03/17 06/04/17 06/05/17 06:59 06:59 06:59 Intake Total 1454 12 Output Total 650 Balance 804 12 Weight 98.5 kg GENERAL: This is a well-developed well nourished, obese white male sitting on the side of his bed in no acute distress. HEART: Regular rate and rhythm. 2 out of 6 systolic ejection murmur. No rubs or gallops. LUNGS: Coarse breath sounds bilaterally with equal rise and fall of the chest. ABDOMEN: Soft, nontender, nondistended with normoactive bowel sounds EXTREMETIES: No clubbing, cyanosis or edema. 2+ peripheral pulses bilaterally. NEURO: Awake, alert and oriented 3. Cranial nerves II through XII are grossly intact. Results Laboratory Results: 06/04/17 06:26 06/04/17 06:26 06/04/17 06/04/17 06:26 06:26 WBC 10.5 RBC 3.10 L Hgb 11.0 L Hct 31.3 L MCV 101 H MCH 35.4 H MCHC 35.2 RDW 13.7 Plt Count 127 L Seg Neutrophils % Not Reportable Lymphocytes % Not Reportable Monocytes % Not Reportable Eosinophils % Not Reportable Basophils % Not Reportable Absolute Neutrophils Not Reportable Absolute Lymphocytes Not Reportable Absolute Monocytes Not Reportable Absolute Eosinophils Not Reportable Absolute Basophils Not Reportable Sodium 135.7 L Potassium 3.8 Chloride 99 Carbon Dioxide 22 Anion Gap 15 BUN 47 H Creatinine 1.51 H Est GFR ( Amer) 53 L Est GFR (Non-Af Amer) 44 L Glucose 153 H Calcium 9.6 Impressions: Chest X-Ray 06/03/17 07:45 IMPRESSION: Cardiomegaly with pulmonary vascular prominence and mild alveolar and interstitial edema Assessment & Plan - Diagnosis (1) Acute respiratory distress Plan: At baseline the patient was oxygen at home at 2 L with BiPAP and increase during the day to around 3. Currently he is on oxygen therapy and doing well. His respiratory failure secondary to acute bronchitis and exacerbation of his COPD. Treat underlying conditions. Continue various inhalers and nebulizers. (3) COPD exacerbation Is this a current diagnosis for this admission?: Yes Plan: Continue steroid therapy. Continue antibiotics. Continue oxygen. (4) Essential hypertension Is this a current diagnosis for this admission?: Yes (5) Hypercholesterolemia Is this a current diagnosis for this admission?: Yes Plan: Continue atorvastatin. (6) Obesity Qualifiers: Body mass index: BMI 35.0-35.9 Is this a current diagnosis for this admission?: Yes Plan: Weight loss through dietary changes and exercise as tolerated. (7) Obstructive sleep apnea on CPAP Is this a current diagnosis for this admission?: Yes Plan: Continue nightly BiPAP. At home he is on 2 L along with his BiPAP. (8) Hypertensive urgency Plan: This is resolved. Patient had a blood pressure 200 on admission. (9) BPH (benign prostatic hyperplasia) Is this a current diagnosis for this admission?: Yes (10) Hyponatremia Plan: This is mild. Continue to monitor. - Time Time Spent with patient: 25-34 minutes - Inpatient Certification Based on my medical assessment, after consideration of the patient's comorbidities, presenting symptoms, or acuity I expect that the services needed warrant INPATIENT care.: Yes Medical Necessity: Significant Comorbidiites Make Outpatient Treatment Too Risky
[2017-06-04] MEDS: SIMVASTATIN 10 MG TABLET PO SCH (21:37)
[2017-06-05] MEDS: IPRATROPIUM/ALBUTEROL 0.5-2.5 MG/3 ML AMPUL NEB SCH ×4 (02:14→19:48)
[2017-06-05] MEDS: METHYLPREDNISOLONE INJ 40 MG/1 ML SDV IV SCH ×3 (06:35→21:25)
[2017-06-05] MEDS: CILOSTAZOL 100 MG TABLET PO SCH ×2 (07:54→15:00)
[2017-06-05] MEDS: FLUTICASONE/SALMETEROL DISKUS 250-50 MCG/DOSE IH SCH ×2 (09:36→21:25)
[2017-06-05] MEDS: MULTIVITAMIN TABLET PO SCH (09:37)
[2017-06-05] MEDS: DOCUSATE SODIUM 100 MG CAPSULE PO SCH ×2 (09:37→17:15)
[2017-06-05] MEDS: BUMETANIDE 1 MG TABLET PO SCH ×2 (09:37→17:15)
[2017-06-05] MEDS: EPLERENONE 25 MG TABLET PO SCH (09:38)
[2017-06-05] MEDS: GUAIFENESIN 600 MG TABLET.SA PO SCH ×2 (09:38→17:15)
[2017-06-05] MEDS: FINASTERIDE 5 MG TABLET PO SCH (09:39)
[2017-06-05] MEDS: CLOPIDOGREL BISULFATE 75 MG TABLET PO SCH (09:39)
[2017-06-05] MEDS: FAMOTIDINE 20 MG TABLET PO SCH ×2 (09:39→21:25)
[2017-06-05] MEDS: ESCITALOPRAM OXALATE 10 MG TABLET PO SCH (09:39)
[2017-06-05] MEDS: LOSARTAN POTASSIUM 50 MG TABLET PO SCH (09:39)
[2017-06-05] MEDS: APIXABAN 2.5 MG TABLET PO SCH ×2 (09:40→17:16)
[2017-06-05] MEDS ORDERED: LEVOFLOXACIN 750 MG/D5W RTU 750 MG/150 ML RTUPB IV SCH (10:00)
[2017-06-05] MEDS: TAMSULOSIN HCL 0.4 MG CAP.SR.24H PO SCH (17:15)
[2017-06-05] MEDS: MONTELUKAST SODIUM 10 MG TABLET PO SCH (17:15)
[2017-06-05] MEDS: PHENOL/SODIUM PHENOLATE 100 SPRAY/177 ML BOTTLE PO PRN ×2 (17:16→21:25)
--- NOTE | 2017-06-05 17:23 | PDOC PROGRESS REPORT ---
Subjective Progress Note for:: 06/05/17 Subjective:: This is a follow-up visit for acute respiratory failure due to COPD exacerbation. Patient states that he does not feel very well today. He has a stuffy nose and is difficult for him to feel his oxygen through the nasal cannula. He also complains that he still has not had a meaningful bowel movement. Physical Exam Vital Signs: Temp Pulse Resp BP Pulse Ox 97.6 F 68 20 147/60 H 95 06/05/17 07:43 06/05/17 13:06 06/05/17 13:06 06/05/17 07:43 06/05/17 13:06 Intake & Output 06/04/17 06/05/17 06/06/17 06:59 06:59 06:59 Intake Total 1454 2073 Output Total 650 650 Balance 804 1423 Weight 98.5 kg 103 kg GENERAL: This is a well-developed well nourished, obese white male resting in bed in no acute distress. HEART: Regular rate and rhythm. 2 out of 6 systolic ejection murmur. No rubs or gallops. LUNGS: Diminished breath sounds bilaterally with equal rise and fall of the chest. ABDOMEN: Soft, nontender, nondistended with normoactive bowel sounds EXTREMETIES: No clubbing, cyanosis or edema. 2+ peripheral pulses bilaterally. NEURO: Awake, alert and oriented 3. Cranial nerves II through XII are grossly intact. Results Laboratory Results: 06/04/17 06:26 06/04/17 06:26 06/04/17 10:00 Stool Occult Blood NEGATIVE Impressions: Chest X-Ray 06/03/17 07:45 IMPRESSION: Cardiomegaly with pulmonary vascular prominence and mild alveolar and interstitial edema Assessment & Plan - Diagnosis (1) Acute and chronic respiratory failure Plan: At baseline the patient was oxygen at home at 2 L with BiPAP and increase during the day to around 3. Currently he is on oxygen therapy and doing well. His respiratory failure secondary to acute bronchitis and exacerbation of his COPD. Treat underlying conditions. Continue various inhalers and nebulizers. (2) Acute kidney injury superimposed on CKD Plan: Slightly worse today. Continue to monitor. Encourage p.o. (3) COPD exacerbation Is this a current diagnosis for this admission?: Yes Plan: Continue steroid therapy. Continue antibiotics. Continue oxygen. (4) Essential hypertension Is this a current diagnosis for this admission?: Yes (5) Hypercholesterolemia Is this a current diagnosis for this admission?: Yes Plan: Continue atorvastatin. (6) Obesity Qualifiers: Body mass index: BMI 35.0-35.9 Is this a current diagnosis for this admission?: Yes Plan: Weight loss through dietary changes and exercise as tolerated. (7) Obstructive sleep apnea on CPAP Is this a current diagnosis for this admission?: Yes Plan: Continue nightly BiPAP. At home he is on 2 L along with his BiPAP. (8) Hypertensive urgency Plan: This is resolved. Patient had a blood pressure 200 on admission. (9) BPH (benign prostatic hyperplasia) Is this a current diagnosis for this admission?: Yes (10) Hyponatremia Plan: This is mild. Continue to monitor. - Time Time Spent with patient: 15-24 minutes - Inpatient Certification Medical Necessity: Need Close Monitoring Due to Risk of Patient Decompensation
[2017-06-05] MEDS: SENNOSIDES/DOCUSATE 8.6-50 MG 1 EACH TABLET PO PRN (20:29)
[2017-06-05] MEDS: SIMVASTATIN 10 MG TABLET PO SCH (21:25)
[2017-06-06] MEDS: IPRATROPIUM/ALBUTEROL 0.5-2.5 MG/3 ML AMPUL NEB SCH ×4 (01:40→19:44)
[2017-06-06] MEDS: METHYLPREDNISOLONE INJ 40 MG/1 ML SDV IV SCH ×3 (05:35→21:40)
[2017-06-06] MEDS: SENNOSIDES/DOCUSATE 8.6-50 MG 1 EACH TABLET PO PRN (05:35)
[2017-06-06] MEDS: CILOSTAZOL 100 MG TABLET PO SCH ×2 (08:05→16:09)
[2017-06-06] MEDS: FLUTICASONE NASAL SPRAY 50 MCG/SPRY 120 SPRAY/16 GM NASL SCH (09:18)
[2017-06-06] MEDS: FLUTICASONE/SALMETEROL DISKUS 250-50 MCG/DOSE IH SCH ×2 (09:18→21:44)
[2017-06-06] MEDS: GUAIFENESIN 600 MG TABLET.SA PO SCH ×2 (09:19→17:19)
[2017-06-06] MEDS: APIXABAN 2.5 MG TABLET PO SCH (09:19)
[2017-06-06] MEDS: FAMOTIDINE 20 MG TABLET PO SCH ×2 (09:19→21:42)
[2017-06-06] MEDS: LOSARTAN POTASSIUM 50 MG TABLET PO SCH (09:19)
[2017-06-06] MEDS: MULTIVITAMIN TABLET PO SCH (09:19)
[2017-06-06] MEDS: FERROUS SULFATE 325 MG TABLET PO SCH (09:19)
[2017-06-06] MEDS: FINASTERIDE 5 MG TABLET PO SCH (09:19)
[2017-06-06] MEDS: METOPROLOL SUCCINATE 25 MG TAB.SR.24H PO SCH (09:19)
[2017-06-06] MEDS: ESCITALOPRAM OXALATE 10 MG TABLET PO SCH (09:19)
[2017-06-06] MEDS: CLOPIDOGREL BISULFATE 75 MG TABLET PO SCH (09:19)
[2017-06-06] MEDS: DOCUSATE SODIUM 100 MG CAPSULE PO SCH ×2 (09:20→17:19)
--- NOTE | 2017-06-06 16:35 | PDOC PROGRESS REPORT ---
Subjective Progress Note for:: 06/06/17 Subjective:: This is a follow-up for acute respiratory failure due to COPD exacerbation. Patient is sitting up in chair stating he is feeling better. Patient states he does not have wheezing but sometimes has chest tightness or discomfort. Patient is complaining of his bleeding hemorrhoids. Patient states that when this happens he does hold the dose of his Eliquis until the bleeding subsides. Patient states that he also takes Tylenol and a half of Valium at night for rest. Patient is no longer constipated and would like to stop the laxative. Physical Exam Vital Signs: Temp Pulse Resp BP Pulse Ox 97.6 F 65 18 156/74 H 93 06/06/17 03:08 06/06/17 03:08 06/06/17 03:41 06/06/17 03:08 06/06/17 03:41 Intake & Output 06/05/17 06/06/17 06/07/17 06:59 06:59 06:59 Intake Total 2073 1965 Output Total 650 925 Balance 1423 1040 Weight 103 kg 95.9 kg General appearance: PRESENT: no acute distress, obese, well-nourished Head exam: PRESENT: normocephalic Eye exam: PRESENT: EOMI. ABSENT: scleral icterus Mouth exam: PRESENT: moist, neck supple Teeth exam: PRESENT: other - missing dentition Neck exam: PRESENT: full ROM. ABSENT: JVD Respiratory exam: PRESENT: decreased breath sounds, other - nasal Cannula in place. ABSENT: unlabored, wheezes Cardiovascular exam: PRESENT: RRR, +S1, +S2 GI/Abdominal exam: PRESENT: normal bowel sounds, tenderness, other - Protuberant Rectal exam: PRESENT: deferred Extremities exam: PRESENT: full ROM. ABSENT: pedal edema Musculoskeletal exam: PRESENT: full ROM, normal inspection Neurological exam: PRESENT: alert, awake, oriented to person, oriented to place , oriented to time, CN II-XII grossly intact Psychiatric exam: PRESENT: normal mood Skin exam: PRESENT: intact, warm Results Laboratory Results: 06/04/17 06:26 06/04/17 06:26 Impressions: Chest X-Ray 06/03/17 07:45 IMPRESSION: Cardiomegaly with pulmonary vascular prominence and mild alveolar and interstitial edema Assessment & Plan - Diagnosis (1) Acute and chronic respiratory failure Qualifiers: Respiratory failure complication: hypoxia Is this a current diagnosis for this admission?: Yes Plan: Patient is oxygen dependent at home using 2 L. Clinically patient has improved. Patient acute exacerbations most likely due to underlying bronchitis. Patient is currently on antibiotics and steroids. Will continue nebulizers. (2) Acute kidney injury superimposed on CKD Is this a current diagnosis for this admission?: Yes Plan: Creatinine is trending up. We will stop patient's diuretics as he appears to be euvolemic at this time. Will follow-up creatinine in the morning. (3) COPD exacerbation Is this a current diagnosis for this admission?: Yes Plan: Continue steroids. Empiric antibiotics. Supplemental oxygen. Encourage activity. (4) Hypertensive urgency Is this a current diagnosis for this admission?: Yes Plan: Patient had systolic blood pressure in the 200s with respiratory symptoms i.e. shortness of breath and chest discomfort. This is now resolved. will continue current medications. (5) Hyponatremia Plan: This is mild. Could be secondary to the use of diuretics. Diuretics are not being held. Will repeat sodium levels in the morning. (6) BPH (benign prostatic hyperplasia) Qualifiers: Lower urinary tract symptom presence: unspecified whether lower urinary tract symptoms present Qualified Code(s): N40.0 - Benign prostatic hyperplasia without lower urinary tract symptoms Is this a current diagnosis for this admission?: No Plan: Patient not complaining of any symptoms right now. (7) Hypercholesterolemia Is this a current diagnosis for this admission?: Yes Plan: Continue simvastatin (8) Obstructive sleep apnea on CPAP Is this a current diagnosis for this admission?: Yes Plan: Patient use CPAP at night. Patient is supposed to have another sleep study done however due to his current hospitalization he missed this appointment. His appointment is to be recent scheduled. (9) Hemorrhoids Qualifiers: Hemorrhoid type: unspecified Qualified Code(s): K64.9 - Unspecified hemorrhoids Is this a current diagnosis for this admission?: Yes Plan: Patient started having some irritation of his hemorrhoids after having several bowel movements. Will hold patient Eliquis tonight. - Time Time Spent with patient: 15-24 minutes Anticipated discharge: Home Within: within 48 hours
[2017-06-06] MEDS: MONTELUKAST SODIUM 10 MG TABLET PO SCH (17:20)
[2017-06-06] MEDS: TAMSULOSIN HCL 0.4 MG CAP.SR.24H PO SCH (17:20)
[2017-06-06] MEDS: ACETAMINOPHEN 325 MG TABLET PO SCH (21:41)
[2017-06-06] MEDS: SIMVASTATIN 10 MG TABLET PO SCH (21:41)
[2017-06-06] MEDS: DIAZEPAM 5 MG TABLET PO SCH (21:42)
[2017-06-07] MEDS: IPRATROPIUM/ALBUTEROL 0.5-2.5 MG/3 ML AMPUL NEB SCH ×4 (01:51→19:56)
[2017-06-07] MEDS: METHYLPREDNISOLONE INJ 40 MG/1 ML SDV IV SCH (05:25)
[2017-06-07 05:49] LABS: ANION GAP 15 (5-19); BLOOD UREA NITROGEN 74 mg/dL (7-20); CALCIUM 10.5 mg/dL (8.4-10.2); CARBON DIOXIDE 23 mmol/L (22-30); CHLORIDE 101 mmol/L (98-107); CREATININE RESULT 1.98 mg/dL (0.52-1.25); GLUCOSE 158 mg/dL (75-110); POTASSIUM 4.8 mmol/L (3.6-5.0); SODIUM 138.6 mmol/L (137-145)
[2017-06-07] MEDS: CILOSTAZOL 100 MG TABLET PO SCH ×2 (08:49→15:53)
[2017-06-07] MEDS ORDERED: METHYLPREDNISOLONE INJ 40 MG/1 ML SDV IV SCH (10:00)
[2017-06-07] MEDS ORDERED: LEVOFLOXACIN 750 MG/D5W RTU 750 MG/150 ML RTUPB IV SCH (10:00)
[2017-06-07] MEDS: FLUTICASONE/SALMETEROL DISKUS 250-50 MCG/DOSE IH SCH ×2 (10:02→22:49)
[2017-06-07] MEDS: GUAIFENESIN 600 MG TABLET.SA PO SCH ×2 (10:03→18:27)
[2017-06-07] MEDS: FLUTICASONE NASAL SPRAY 50 MCG/SPRY 120 SPRAY/16 GM NASL SCH (10:03)
[2017-06-07] MEDS: MULTIVITAMIN TABLET PO SCH (10:04)
[2017-06-07] MEDS: ESCITALOPRAM OXALATE 10 MG TABLET PO SCH (10:04)
[2017-06-07] MEDS: DOCUSATE SODIUM 100 MG CAPSULE PO SCH ×2 (10:04→18:26)
[2017-06-07] MEDS: FAMOTIDINE 20 MG TABLET PO SCH ×2 (10:04→22:48)
[2017-06-07] MEDS: FINASTERIDE 5 MG TABLET PO SCH (10:04)
[2017-06-07] MEDS: CLOPIDOGREL BISULFATE 75 MG TABLET PO SCH (10:04)
[2017-06-07] MEDS: METOPROLOL SUCCINATE 25 MG TAB.SR.24H PO SCH (10:05)
--- NOTE | 2017-06-07 14:00 | PDOC PROGRESS REPORT ---
Subjective Progress Note for:: 06/07/17 Subjective:: This is a follow-up for acute respiratory failure due to COPD exacerbation. Patient sitting up in chair eating breakfast. Patient states that he is feeling better than he did yesterday however he still has some congestion. Suggested that patient use a flutter valve. Physical Exam Vital Signs: Temp Pulse Resp BP Pulse Ox 97.5 F 66 18 147/47 H 97 06/07/17 10:56 06/07/17 13:41 06/07/17 13:41 06/07/17 10:56 06/07/17 13:41 Intake & Output 06/06/17 06/07/17 06/08/17 06:59 06:59 06:59 Intake Total 1965 2511 Output Total 925 1675 Balance 1040 836 Weight 95.9 kg 102.4 kg General appearance: PRESENT: no acute distress, obese Head exam: PRESENT: normocephalic Eye exam: PRESENT: EOMI. ABSENT: scleral icterus Mouth exam: PRESENT: moist Neck exam: PRESENT: full ROM Respiratory exam: PRESENT: decreased breath sounds, other - Coarse breath sounds. ABSENT: accessory muscle use, retraction, unlabored Cardiovascular exam: PRESENT: RRR, +S1, +S2 GI/Abdominal exam: PRESENT: normal bowel sounds, tenderness Rectal exam: PRESENT: deferred Gentrourinary exam: ABSENT: indwelling catheter Extremities exam: ABSENT: pedal edema, tenderness Musculoskeletal exam: PRESENT: full ROM Neurological exam: PRESENT: alert, awake, oriented to person, oriented to place , oriented to time, CN II-XII grossly intact Psychiatric exam: PRESENT: normal mood Skin exam: PRESENT: warm Results Laboratory Results: 06/04/17 06:26 06/07/17 04:34 06/06/17 06/07/17 06/07/17 17:22 04:34 04:34 Sodium 138.6 Potassium 4.8 Chloride 101 Carbon Dioxide 23 Anion Gap 15 BUN 74 H Creatinine 1.98 H Est GFR ( Amer) 39 L Est GFR (Non-Af Amer) 32 L Glucose 158 H Calcium 10.5 H Magnesium 2.8 H 2.9 H Impressions: Chest X-Ray 06/03/17 07:45 IMPRESSION: Cardiomegaly with pulmonary vascular prominence and mild alveolar and interstitial edema Assessment & Plan - Diagnosis (1) Acute and chronic respiratory failure Qualifiers: Respiratory failure complication: hypoxia Is this a current diagnosis for this admission?: Yes Plan: Patient is oxygen dependent at home using 2 L. Clinically patient has improved. Patient acute exacerbations most likely due to underlying bronchitis oxygen condenser malfunction at home. Continue antibiotics and steroids. Transition from IV to p.o. steroids. Continue (2) Acute kidney injury superimposed on CKD Is this a current diagnosis for this admission?: Yes Plan: Creatinine continues to trend up however patient having adequate urine output. Continue holding diuretics and ARB. (3) COPD exacerbation Is this a current diagnosis for this admission?: Yes Plan: Continue steroids (transitioning to p.o. steroids) empiric antibiotics. Continue supplemental oxygen. (4) Hypertensive urgency Is this a current diagnosis for this admission?: Yes Plan: Patient had systolic blood pressure in the 200s with respiratory symptoms i.e. shortness of breath and chest discomfort. This is now resolved. will continue current medications monitor. (5) Hyponatremia Plan: Resolved. Could be secondary to the use of diuretics. (6) BPH (benign prostatic hyperplasia) Qualifiers: Lower urinary tract symptom presence: unspecified whether lower urinary tract symptoms present Qualified Code(s): N40.0 - Benign prostatic hyperplasia without lower urinary tract symptoms Is this a current diagnosis for this admission?: No Plan: Continue on flomax. (7) Hypercholesterolemia Is this a current diagnosis for this admission?: Yes Plan: Continue simvastatin (8) Obstructive sleep apnea on CPAP Is this a current diagnosis for this admission?: Yes Plan: Patient use CPAP at night. Patient is supposed to have another sleep study done however due to his current hospitalization he missed this appointment. Patient plans on rescheduling his appointment. (9) Hemorrhoids Qualifiers: Hemorrhoid type: unspecified Qualified Code(s): K64.9 - Unspecified hemorrhoids Is this a current diagnosis for this admission?: Yes - Time Time Spent with patient: 15-24 minutes Anticipated discharge: Home with Homehealth Within: within 24 hours
[2017-06-07] MEDS: MONTELUKAST SODIUM 10 MG TABLET PO SCH (18:26)
[2017-06-07] MEDS: TAMSULOSIN HCL 0.4 MG CAP.SR.24H PO SCH (18:27)
[2017-06-07] MEDS: SIMVASTATIN 10 MG TABLET PO SCH (22:48)
[2017-06-07] MEDS: DIAZEPAM 5 MG TABLET PO SCH (22:48)
[2017-06-07] MEDS: ACETAMINOPHEN 325 MG TABLET PO SCH (22:48)
[2017-06-08] MEDS: IPRATROPIUM/ALBUTEROL 0.5-2.5 MG/3 ML AMPUL NEB SCH ×2 (02:06→07:57)
[2017-06-08 05:44] LABS: ANION GAP 10 (5-19); BLOOD UREA NITROGEN 59 mg/dL (7-20); CALCIUM 10.1 mg/dL (8.4-10.2); CARBON DIOXIDE 26 mmol/L (22-30); CHLORIDE 103 mmol/L (98-107); CREATININE RESULT 1.41 mg/dL (0.52-1.25); GLUCOSE 106 mg/dL (75-110); POTASSIUM 4.5 mmol/L (3.6-5.0); SODIUM 139.3 mmol/L (137-145)
[2017-06-08] MEDS: CILOSTAZOL 100 MG TABLET PO SCH (08:16)
[2017-06-08 08:30] VITALS: BP 158/68
[2017-06-08] MEDS: GUAIFENESIN 600 MG TABLET.SA PO SCH (09:31)
[2017-06-08] MEDS: FINASTERIDE 5 MG TABLET PO SCH (09:31)
[2017-06-08] MEDS: DOCUSATE SODIUM 100 MG CAPSULE PO SCH (09:31)
[2017-06-08] MEDS: ESCITALOPRAM OXALATE 10 MG TABLET PO SCH (09:31)
[2017-06-08] MEDS: CLOPIDOGREL BISULFATE 75 MG TABLET PO SCH (09:31)
[2017-06-08] MEDS: METOPROLOL SUCCINATE 25 MG TAB.SR.24H PO SCH (09:32)
[2017-06-08] MEDS: FERROUS SULFATE 325 MG TABLET PO SCH (09:32)
[2017-06-08] MEDS: FAMOTIDINE 20 MG TABLET PO SCH (09:32)
[2017-06-08] MEDS: MULTIVITAMIN TABLET PO SCH (09:32)
[2017-06-08] MEDS: FLUTICASONE/SALMETEROL DISKUS 250-50 MCG/DOSE IH SCH (09:33)
[2017-06-08] MEDS: FLUTICASONE NASAL SPRAY 50 MCG/SPRY 120 SPRAY/16 GM NASL SCH (09:34)
[2017-06-08] MEDS ORDERED: PREDNISONE 20 MG TABLET PO SCH (10:00)
[2017-06-08] MEDS ORDERED: ONDANSETRON 4 MG TAB.RAPDIS PO PRN (10:30)
[2017-06-08] MEDS ORDERED: ONDANSETRON HCL INJ/PF 4 MG/2 ML SDV IV PRN (10:30)
[2017-06-08] MEDS ORDERED: APIXABAN 2.5 MG TABLET PO ONE (10:45)
--- NOTE | 2017-06-08 18:58 | PDOC DISCHARGE SUMMARY ---
General - Admit/Disc Date/PCP Admission Date/Primary Care Provider: 06/03/17 10:14 MARY ANN SIM MD Discharge Date: 06/08/17 - Discharge Diagnosis (1) Acute and chronic respiratory failure Is this a current diagnosis for this admission?: Yes (2) Acute kidney injury superimposed on CKD Is this a current diagnosis for this admission?: Yes (3) COPD exacerbation Is this a current diagnosis for this admission?: Yes (4) Hypertensive urgency Is this a current diagnosis for this admission?: Yes (6) BPH (benign prostatic hyperplasia) Is this a current diagnosis for this admission?: No (7) Hypercholesterolemia Is this a current diagnosis for this admission?: Yes (8) Obstructive sleep apnea on CPAP Is this a current diagnosis for this admission?: Yes (9) Hemorrhoids Is this a current diagnosis for this admission?: Yes - Additional Information Resuscitation Status: Full Code Discharge Diet: Cardiac Discharge Activity: Activity As Tolerated Home Medications: Albuterol Sulfate [Proair HFA] 2 puff IH QIDP PRN 06/03/17 Apixaban [Eliquis 2.5 mg Tablet] 2.5 mg PO BID 06/03/17 Bumetanide [Bumex 1 mg Tablet] 1 mg PO BID 06/03/17 Cholecalciferol (Vitamin D3) [Vitamin D3 1000 Unit Tablet] 2,000 unit PO DAILY 06/03/17 Cilostazol [Pletal 100 mg Tablet] 100 mg PO BID 06/03/17 Clopidogrel Bisulfate [Clopidogrel] 75 mg PO DAILY 06/03/17 Cyanocobalamin (Vitamin B-12) [Vitamin B-12 1000 mcg Tablet] 1,000 mcg PO DAILY 06/03/17 Docusate Sodium [Colace 100 mg Capsule] 100 mg PO BID 06/03/17 Eplerenone [Inspra] 50 mg PO DAILY 06/03/17 Escitalopram Oxalate [Lexapro 10 mg Tablet] 10 mg PO DAILY 06/03/17 Ferrous Sulfate [Feosol 325 mg Tablet] 325 mg PO Q2DAYS 06/03/17 Finasteride [Proscar 5 mg Tablet] 5 mg PO DAILY 06/03/17 Fluticasone Propionate [Flonase Nasal Issue 50 Mcg/Issue 16 gm] 1 spray NASL DAILY 06/03/17 Ipratropium/Albuterol Sulfate [Duoneb 3 ml Ampul] 1 vial NEB ASDIR PRN 06/03/17 Losartan Potassium [Cozaar 100 mg Tablet] 100 mg PO DAILY 06/03/17 Metoprolol Succinate [Toprol Xl 25 mg Tab.sr] 25 mg PO DAILY 06/03/17 Montelukast Sodium [Singulair 10 mg Tablet] 10 mg PO QPM 06/03/17 Multivitamin [Multiple Vitamins] 1 tab PO DAILY 06/03/17 Nitroglycerin [Nitrostat 0.4 mg (1/150 Gr) Tabs 25/Bottle] 0.4 mg SL Q5MP PRN [place]-3 Acid Ethyl Esters [Lovaza 1 gm Capsule] 1 gm PO BID 06/03/17 Simvastatin [Zocor 20 mg Tablet] 20 mg PO QHS 06/03/17 Tamsulosin HCl [Flomax 0.4 mg Cap.sr] 0.4 mg PO DAILY 06/03/17 Vitamin E (Dl,Tocopheryl Acet) [Vitamin E] 400 unit PO DAILY 06/03/17 Cilostazol [Pletal 100 mg Tablet] 100 mg PO BIDACBS tablet 06/08/17 Clopidogrel Bisulfate [Plavix 75 mg Tablet] 75 mg PO DAILY tablet 06/08/17 Diazepam [Valium 5 mg Tablet] 2.5 mg PO DAILY #0 06/08/17 Diazepam [Valium 5 mg Tablet] 2.5 mg PO QHS tablet 06/08/17 Levofloxacin [Levaquin 250 mg Tablet] 250 mg PO DAILY 5 Days #5 tablet 06/08/17 Prednisone [Deltasone 20 mg Tablet] 40 mg PO DAILY 5 Days #10 tablet 06/08/17 History of Present Illness Patient complains of: Shortness of breathe History of Present Illness: ZAHIRA ROLLINS is a 87 year old male with a history of COPD who presented to his [facility] yesterday with cough and shortness of breath and was started on Zithromax and prednisone. The patient yesterday when he had worsening symptoms and choked on a piece of lettuce and had a coughing spell. This morning he reports that he woke up with a low-grade fever along with wheezing this morning about 5 AM. Presented to the emergency room. He denied having any chest pain. He has had the shortness of breath and wheezing. He has had also a productive cough of yellow sputum. He denies any orthopnea or PND but does have some lower extremity edema. He does have a history of congestive heart failure but denies any change in his weight. He also has COPD and obstructive sleep apnea. When he presented to emergency room he was found to have significant wheezing and was placed on BiPAP. He reports he is feeling much better now on BiPAP. Hospital Course Hospital Course: Acute on chronic hypoxic respiratory failure. Patient was continued on his 2 L of oxygen which he also uses at home. Please note that patient may have had worsening symptoms due to the fact that he has acute bronchitis and that his condenser at home was not working. Patient was continued treated for his underlying bronchitis and his condenser has since been replaced. Acute on chronic kidney failure. Patient appears to have CKD stage III. Creatinine did trend up to 1.98 and did trend back down to 1.41. All patient's diuretics and ERIN was held. Patient continues to have good urinary output. COPD exacerbation patient was started on azithromycin and p.o. steroids however did not improve after taking 1 dose at home. Patient was started on Levaquin here that was renally dosed. Patient will be discharged home on Levaquin 250 mg p.o. for 5 days (this dose is safe to take with patient having a GFR of 26). Patient also discharged on prednisone 40 mg p.o. daily Hypertensive urgency. Patient presented with a systolic blood pressure in the 200s and shortness of breath with some chest discomfort which are now resolved. Patient blood pressures have significantly improved while only on metoprolol. Hyponatremia. This was mild and most likely related to the use of diuretics. This did resolve prior to discharge home. BPH. Patient not complaining of any kind of urinary symptoms during his hospitalization. Patient was continued on Flomax. Hypercholesterolemia. Patient was continued on simvastatin. Obstructive sleep apnea patient uses CPAP at night. Apparently patient is supposed to have a another sleep study however patient is currently admitted and has missed this appointment. Patient has already rescheduled his appointment. Hemorrhoids. Patient has history of hemorrhoids they started to bleed while in the hospital as patient was constipated. As a result patient Eliquis was held for a couple of doses however this has since been resumed prior to discharge. Physical Exam Vital Signs: Temp Pulse Resp BP Pulse Ox 97.6 F 66 20 158/68 H 96 06/08/17 06:56 06/08/17 07:57 06/08/17 07:57 06/08/17 06:56 06/08/17 07:57 Intake & Output 06/07/17 06/08/17 06/09/17 06:59 06:59 06:59 Intake Total 2511 2220 Output Total 1675 1380 Balance 836 840 Weight 102.4 kg 103.5 kg General appearance: PRESENT: no acute distress Head exam: PRESENT: atraumatic, normocephalic Eye exam: PRESENT: EOMI Mouth exam: PRESENT: moist Neck exam: PRESENT: full ROM. ABSENT: JVD Respiratory exam: PRESENT: clear to auscultation regi, wheezes. ABSENT: accessory muscle use, unlabored Cardiovascular exam: PRESENT: RRR, rubs, +S1, +S2 GI/Abdominal exam: PRESENT: normal bowel sounds, soft. ABSENT: tenderness Rectal exam: PRESENT: deferred Gentrourinary exam: ABSENT: indwelling catheter Extremities exam: ABSENT: pedal edema Musculoskeletal exam: PRESENT: full ROM, normal inspection. ABSENT: tenderness Neurological exam: PRESENT: alert, awake, oriented to person, oriented to place , oriented to time, oriented to situation Psychiatric exam: PRESENT: normal mood Skin exam: PRESENT: intact, warm Results Laboratory Results: 06/04/17 06:26 06/08/17 04:32 06/08/17 04:32 Sodium 139.3 Potassium 4.5 Chloride 103 Carbon Dioxide 26 Anion Gap 10 BUN 59 H Creatinine 1.41 H Est GFR ( Amer) 58 L Est GFR (Non-Af Amer) 48 L Glucose 106 Calcium 10.1 Impressions: Chest X-Ray 06/03/17 07:45 IMPRESSION: Cardiomegaly with pulmonary vascular prominence and mild alveolar and interstitial edema Plan Time Spent: Greater than 30 Minutes - Patient states he is feeling well today. Patient states that he can continue his treatment at home. Patient also states that his consent condenser is home and should be working.
== END 2017-06-08 12:45 | disposition home or self-care (01) | DRG 189 ==
LOC: ER 07:42 → EH 09:07 → UNDOADMIN 09:07 → EH 10:14 → 3N 13:57
PROVIDERS: ADMIT Internal Medicine; ATTEND Internal Medicine
DX: J96.21 Acute and chronic respiratory failure with hypoxia (principal); J44.1 Chronic obstructive pulmonary disease with (acute) exacerbation; I13.0 Hypertensive heart and chronic kidney disease with heart failure and stage 1 through stage 4 chronic kidney disease, or unspecified chronic kidney disease; E87.1 Hypo-osmolality and hyponatremia; N17.9 Acute kidney failure, unspecified; J44.0 Chronic obstructive pulmonary disease with (acute) lower respiratory infection; J20.9 Acute bronchitis, unspecified; I50.9 Heart failure, unspecified; N18.3 Chronic kidney disease, stage 3 (moderate); I48.2 Chronic atrial fibrillation; I16.0 Hypertensive urgency; I25.10 Atherosclerotic heart disease of native coronary artery without angina pectoris; E78.5 Hyperlipidemia, unspecified; I11.0 Hypertensive heart disease with heart failure; N40.0 Benign prostatic hyperplasia without lower urinary tract symptoms; G47.33 Obstructive sleep apnea (adult) (pediatric); K64.9 Unspecified hemorrhoids; E66.9 Obesity, unspecified; I25.2 Old myocardial infarction; Z99.81 Dependence on supplemental oxygen; Z95.0 Presence of cardiac pacemaker; Z95.1 Presence of aortocoronary bypass graft; Z79.51 Long term (current) use of inhaled steroids; Z79.899 Other long term (current) drug therapy; Z68.35 Body mass index [BMI] 35.0-35.9, adult
CPT/HCPCS: 36415; 71010; 80048; 80053; 81001; 82272; 82550; 82553; 82803; 83605; 83735; 83880; 84484; 85025; 85610; 87040; 87086; 93005; 93010; 94640; 94660; 99285; J1940; J1956; J2920; J3490; J7512; J7620

== ENCOUNTER → 2017-06-12 | Outpatient (CLI) | payer MEDICARE, BC ==
[2017-06-12 13:27] LABS: APPEARANCE,URINE CLEAR; BILIRUBIN,URINE NEGATIVE (NEGATIVE); GLUCOSE, URINE NEGATIVE (NEGATIVE); KETONES,URINE NEGATIVE (NEGATIVE); LEUKOCYTE ESTERASE,URINE NEGATIVE (NEGATIVE); NITRITE,URINE NEGATIVE (NEGATIVE); PROTEIN,URINE NEGATIVE (NEGATIVE); URINE SPECIFIC GRAVITY 1.009; UROBILINOGEN,URINE NEGATIVE mg/dL (<2.0)
[2017-06-12 13:36] LABS: HEMATOCRIT 36.9 % (37.9-51.0); HEMOGLOBIN 13.1 g/dL (13.5-17.0); HGB HCT DIFFERENCE 2.4; MEAN CORPUSCULAR HEMOGLOBIN 35.9 pg (27.0-33.4); MEAN CORPUSCULAR HGB CONC 35.5 g/dL (32.0-36.0); MEAN CORPUSCULAR VOLUME 101 fl (80-97); RED BLOOD COUNT 3.65 10^6/uL (4.35-5.55); RED CELL DISTRIBUTION WIDTH 13.9 % (11.5-14.0); WHITE BLOOD COUNT 10.9 10^3/uL (4.0-10.5)
[2017-06-12 13:59] LABS: ALANINE AMINOTRANSFERASE 53 U/L (21-72); ALBUMIN 3.8 g/dL (3.5-5.0); ALKALINE PHOSPHATASE 55 U/L (38-126); ANION GAP 12 (5-19); ASPARTATE AMINO TRANSFERASE 19 U/L (17-59); BILIRUBIN,DIRECT 0.5 mg/dL (0.0-0.4); BILIRUBIN,TOTAL 1.1 mg/dL (0.2-1.3); BLOOD UREA NITROGEN 53 mg/dL (7-20); CALCIUM 9.4 mg/dL (8.4-10.2); CARBON DIOXIDE 28 mmol/L (22-30); CHLORIDE 99 mmol/L (98-107); CREATININE RESULT 1.38 mg/dL (0.52-1.25); GLUCOSE 97 mg/dL (75-110); SODIUM 138.7 mmol/L (137-145); TOTAL PROTEIN 6.9 g/dL (6.3-8.2)
== END ==
LOC: OD 12:14
PROVIDERS: ATTEND Internal Medicine Cardiovascular Disease
DX: Z79.01 Long term (current) use of anticoagulants (principal); Z79.899 Other long term (current) drug therapy
CPT/HCPCS: 36415; 80048; 80076; 81001; 82272; 85027; 85730

== ENCOUNTER 2017-08-04 21:37 | Inpatient (IN) | payer MEDICARE, BC ==
[2017-08-04] MEDS ORDERED: IPRATROPIUM/ALBUTEROL 0.5-2.5 MG/3 ML AMPUL NEB ONE (21:51)
[2017-08-04] MEDS ORDERED: ASPIRIN 81 MG TABLET, CHEWABLE PO ONE (21:51)
[2017-08-04] MEDS ORDERED: ALBUTEROL SULFATE 0.083% NEB 2.5 MG/3 ML AMPUL NEB ONE (21:51)
--- NOTE | 2017-08-04 21:51 | ER Document Report ---
ED General - General Mode of Arrival: Medic Information source: Patient TRAVEL OUTSIDE OF THE [place] IN LAST 30 DAYS: No <LZUMA LAMBERT - Last Filed: 08/04/17 22:20> <DEVORA BEEBE - Last Filed: 08/05/17 01:33> - General Stated Complaint: RESPIRATORY DISTRESS Time Seen by Provider: 08/04/17 21:41 Notes: Patient is an 87 year old male with a history of COPD and asthma presents to the emergency department via EMS complaining of general malaise and productive cough with yellow sputum onset 2 days ago. EMS states upon arrival to patients home, patient had wheezing and rhonchi and a pulse ox of 93%. Patient states that he is on 2L of oxygen that he uses as needed. Patient states his associated symptoms include fever and congestion. Patient is currently on Bumex. EMS gave patient Albuterol and 125 of Solu Medrol. (LUZMA LAMBERT) - Related Data Allergies/Adverse Reactions: No Known Allergies Allergy (Verified 10/18/15 13:31) Past Medical History - General Information source: Patient, Emergency Med Personnel - Social History Smoking Status: Former Smoker Cigarette use (# per day): No Chew tobacco use (# tins/day): No Smoking Education Provided: No Frequency of alcohol use: None Family History: Reviewed & Not Pertinent - Past Medical History Cardiac Medical History: Reports: Hx Atrial Fibrillation, Hx Congestive Heart Failure - Diastolic dysfunction, Hx Coronary Artery Disease - CAROIDECTOMY LEFT SIDE, Hx Heart Attack, Hx Hypercholesterolemia, Hx Hypertension, Hx Peripheral Vascular Disease Pulmonary Medical History: Reports: Hx Asthma, Hx Bronchitis, Hx COPD, Hx Pneumonia, Hx Sleep Apnea - On CPAP at home Renal/ Medical History: Reports: Hx Benign Prostatic Hyperplasia Malignancy Medical History: Reports Hx Skin Cancer GI Medical History: Reports: Hx Gastroesophageal Reflux Disease Musculoskeltal Medical History: Reports Hx Arthritis Psychiatric Medical History: Reports: Hx Depression Past Surgical History: Reports: Hx Cardiac Surgery - quad. bypass in , Hx Coronary Artery Bypass Graft, Hx Pacemaker - medtronic, Hx Vascular Surgery - Left carotid endarterectomy. Endovascular AAA repair - Immunizations Hx Diphtheria, Pertussis, Tetanus Vaccination: Yes Hx Pneumococcal Vaccination: 04/04/12 <LUZMA LAMBERT - Last Filed: 08/04/17 22:20> Review of Systems - Review of Systems Constitutional: See HPI, Fever EENT: See HPI, Nose congestion Respiratory: See HPI, Cough, Sputum Gastrointestinal: No symptoms reported Genitourinary: No symptoms reported Male Genitourinary: No symptoms reported Musculoskeletal: No symptoms reported Skin: No symptoms reported Hematologic/Lymphatic: No symptoms reported Neurological/Psychological: No symptoms reported -: Yes All other systems reviewed and negative <FAUSTOLUZMA - Last Filed: 08/04/17 22:20> Physical Exam <LUZMA LAMBERT - Last Filed: 08/04/17 22:20> <DEVORA BEEBE - Last Filed: 08/05/17 01:33> - Vital signs Vitals: Resp Pulse Ox 17 94 08/04/17 21:46 08/04/17 21:46 - Notes Notes: GENERAL: Alert, interacts well. No acute distress. HEAD: Normocephalic, atraumatic. EYES: Pupils equal, round, and reactive to light. Extraocular movements intact. ENT: Oral mucosa moist, tongue midline. NECK: Full range of motion. Supple. Trachea midline. LUNGS: Tachypneic, tightness, shortness of breath. Decreased air movements. Poor air movements. Expiratory wheezes. HEART: Regular rate and rhythm. No murmurs, gallops, or rubs. ABDOMEN: Soft, non-tender. Non-distended. Bowel sounds present in all 4 quadrants. EXTREMITIES: Moves all 4 extremities spontaneously. Trace pitting edema to LLE, 1+ pitting edema to RLE. radial and dorsalis pedis pulses 2/4 bilaterally. No cyanosis. NEUROLOGICAL: Alert and oriented x3. Normal speech. PSYCH: Normal affect, normal mood. SKIN: Warm, dry, normal turgor. No rashes or lesions noted. (LUZMA LAMBERT) Course - Laboratory Result Diagrams: 08/04/17 21:58 08/04/17 21:58 <LUZMA LAMBERT - Last Filed: 08/04/17 22:20> - Laboratory Result Diagrams: 08/04/17 21:58 08/04/17 23:09 <DEVORA BEEBE - Last Filed: 08/05/17 01:33> - Re-evaluation Re-evalutation: 08/05/17 00:43 CBC shows chronic anemia with hemoglobin 11.8, CMP shows acute on chronic renal failure with a BUN of 27 and creatinine of 1.50, proBNP elevated 2310, troponin indeterminate 0.04. Chest x-ray shows pulmonary edema with Sharad B lines, no signs of pneumonia. Given that he does have a slightly increased oxygen requirement from baseline as well as a fever in addition to treating him with steroids, albuterol breathing treatments and Lasix he will be treated with antibiotics for a presumed bacterial exacerbation of COPD in addition to his congestive heart failure. I discussed this case with Dr. Dominguez who is covering for Dr. Diaz at this time as she is out of town and he will admit the patient to his service on the telemetry floor. 08/05/17 00:46 Hospitalist will continue to follow his hypertension in the hospital. (DEVORA BEEBE) - Vital Signs Vital signs: Temp Pulse Resp BP Pulse Ox 99.1 F 23 H 138/56 H 94 08/04/17 22:02 08/04/17 23:43 08/04/17 23:43 08/04/17 23:43 - Laboratory Laboratory results interpreted by me: 08/04/17 08/04/17 08/04/17 21:58 21:58 23:09 RBC 3.35 L Hgb 11.8 L Hct 34.2 L MCV 102 H MCH 35.2 H Lymphocytes % 7.7 L Monocytes % 15.8 H Retic Count (auto) 2.91 H BUN 27 H Creatinine 1.50 H Est GFR ( Amer) 54 L Est GFR (Non-Af Amer) 44 L Glucose 130 H Direct Bilirubin 0.6 H Creatine Kinase 26 L NT-Pro-B Natriuret Pep 08/04/17 23:09 RBC Hgb Hct MCV MCH Lymphocytes % Monocytes % Retic Count (auto) BUN Creatinine Est GFR ( Amer) Est GFR (Non-Af Amer) Glucose Direct Bilirubin Creatine Kinase NT-Pro-B Natriuret Pep 2310 H - EKG Interpretation by Me Additional EKG results interpreted by me: 08/05/17 00:44 EKG shows atrial flutter with ventricularly paced complexes, rate of 70, no ST segment elevations or depressions, right bundle branch block, left anterior hemiblock, T-wave inversions in 1 and aVL, per my interpretation. (DEVORA BEEBE) Discharge <LUZMA LAMBERT - Last Filed: 08/04/17 22:20> - Discharge Admitting Provider: Joe dominguez covering Unit Admitted: Telemetry <DEVORA BEEBE - Last Filed: 08/05/17 01:33> - Discharge Clinical Impression: CKD (chronic kidney disease), stage III, COPD exacerbation, Acute kidney injury superimposed on CKD Acute and chronic respiratory failure Qualifiers: Respiratory failure complication: hypoxia Qualified Code(s): J96.21 - Acute and chronic respiratory failure with hypoxia Congestive heart failure Qualifiers: Congestive heart failure type: unspecified congestive heart failure type Congestive heart failure chronicity: acute on chronic Qualified Code(s): I50.9 - Heart failure, unspecified Hypertension Qualifiers: Hypertension type: unspecified Qualified Code(s): I10 - Essential (primary) hypertension Condition: Fair Disposition: ADMITTED INPATIENT Scribe Attestation: 08/05/17 01:33 I personally performed the services described in the documentation, reviewed and edited the documentation which was dictated to the scribe in my presence, and it accurately records my words and actions. (DEVORA BEEBE) Scribe Documentation - Scribe Written by Galdinoibe:: Cb Zepeda, 08/04/2017 22:31 acting as scribe for :: Jarvis <LUZMA LAMBERT - Last Filed: 08/04/17 22:20>
[2017-08-04 22:32] LABS: ABSOLUTE BASOPHILS # (AUTO) 0.1 10^3/uL (0.0-0.2); ABSOLUTE EOSINOPHILS # (AUTO) 0.1 10^3/uL (0.0-0.6); ABSOLUTE LYMPHOCYTES (AUTO) 0.7 10^3/uL (0.5-4.7); ABSOLUTE MONOCYTES (AUTO) 1.3 10^3/uL (0.1-1.4); ABSOLUTE NEUT (AUTO) 6.4 10^3/uL (1.7-8.2); BASOPHILS % (AUTO) 0.7 % (0-2); EOSINOPHILS % (AUTO) 1.2 % (0-6); HEMATOCRIT 34.2 % (37.9-51.0); HEMOGLOBIN 11.8 g/dL (13.5-17.0); HGB HCT DIFFERENCE 1.2; LYMPHOCYTES % (AUTO) 7.7 % (13-45); MEAN CORPUSCULAR HEMOGLOBIN 35.2 pg (27.0-33.4); MEAN CORPUSCULAR HGB CONC 34.6 g/dL (32.0-36.0); MEAN CORPUSCULAR VOLUME 102 fl (80-97); MONOCYTES % (AUTO) 15.8 % (3-13); RED BLOOD COUNT 3.35 10^6/uL (4.35-5.55); SEGMENTED NEUTROPHILS % (AUTO) 74.6 % (42-78); WHITE BLOOD COUNT 8.5 10^3/uL (4.0-10.5)
--- NOTE | 2017-08-04 22:33 | RADIOLOGY REPORT (SQ) ---
EXAM DESCRIPTION: CHEST SINGLE VIEW COMPLETED DATE/TIME: 08/04/2017 10:15 pm REASON FOR STUDY: cough, fever, SOB COMPARISON: CT chest 12/25/2015 AP chest 06/03/2017 EXAM PARAMETERS: NUMBER OF VIEWS: One view. TECHNIQUE: Single frontal radiographic view of the chest acquired. RADIATION DOSE: NA LIMITATIONS: None. FINDINGS: LUNGS AND PLEURA: Few Sharad lines at the bases suggesting mild interstitial edema. No fluffy alveolar infiltrates worrisome for pneumonia. No pleural effusions. No pneumothorax. MEDIASTINUM AND HILAR STRUCTURES: No masses. Contour normal. HEART AND VASCULAR STRUCTURES: Stable mild cardiomegaly. Old sternotomy for CABG. BONES: No acute findings. HARDWARE: Left-sided dual lead pacemaker OTHER: No other significant finding. IMPRESSION: Few Sharad lines from mild interstitial edema TECHNICAL DOCUMENTATION: JOB ID: [id number] [employer]- All Rights Reserved
[2017-08-04] MEDS ORDERED: FUROSEMIDE INJ/PF 40 MG/4 ML SDV IV ONE (23:18)
[2017-08-04 23:38] LABS: ALANINE AMINOTRANSFERASE 38 U/L (21-72); ALBUMIN 3.9 g/dL (3.5-5.0); ALKALINE PHOSPHATASE 81 U/L (38-126); ANION GAP 14 (5-19); ASPARTATE AMINO TRANSFERASE 23 U/L (17-59); BILIRUBIN,DIRECT 0.6 mg/dL (0.0-0.4); BLOOD UREA NITROGEN 27 mg/dL (7-20); CALCIUM 9.2 mg/dL (8.4-10.2); CARBON DIOXIDE 26 mmol/L (22-30); CHLORIDE 103 mmol/L (98-107); CREATINE KINASE 26 U/L (55-170); GLUCOSE 130 mg/dL (75-110); SODIUM 142.8 mmol/L (137-145); TOTAL PROTEIN 7.3 g/dL (6.3-8.2)
[2017-08-04 23:50] LABS: CREATINE KINASE MB 0.86 ng/mL (<4.55)
[2017-08-05 00:02] LABS: TROPONIN I 0.04 ng/mL
[2017-08-05] MEDS ORDERED: LEVOFLOXACIN 750 MG/D5W RTU 750 MG/150 ML RTUPB IV ONE (00:43)
[2017-08-05] MEDS ORDERED: GUAIFENESIN SYRP 200 MG/10 ML UDC PO PRN (00:49)
[2017-08-05] MEDS ORDERED: ACETAMINOPHEN 325 MG TABLET PO PRN (00:49)
[2017-08-05] MEDS ORDERED: CHLORPHENIRAMINE MALEATE 4 MG TABLET PO ONE (00:49)
[2017-08-05] MEDS ORDERED: HYDRALAZINE HCL INJ/PF 20 MG/1 ML SDV IV PRN (00:55)
[2017-08-05 01:28] LABS: STAIN REACTIVITY CHECK ACCEPTABLE
[2017-08-05] MEDS ORDERED: FLUTICASONE NASAL SPRAY 50 MCG/SPRY 120 SPRAY/16 GM NASL ONE (01:30)
[2017-08-05] MEDS: IPRATROPIUM/ALBUTEROL 0.5-2.5 MG/3 ML AMPUL NEB SCH ×4 (02:13→21:14)
--- NOTE | 2017-08-05 02:25 | PDOC H&P ---
History of Present Illness Admission Date/PCP: 08/05/17 00:50 MARY ANN SIM MD Patient complains of: Shortness of breath History of Present Illness: ZAHIRA ROLLINS is a 87 year old male with a past medical history of COPD with chronic bronchitis, stage III chronic kidney disease, obstructive sleep apnea, coronary artery bypass graft remotely, permanent pacemaker and congestive heart failure. Patient presents after approximately 48 hours of rhinorrhea, sinus congestion, productive cough with yellow sputum and lower extremity edema. Denying chest pain, fever, chills, nausea or vomiting. In the emergency room he was found to have pulmonary vascular congestion he receives breathing treatment, empiric antibiotic, diuresis and referred the hospitalist for admission. Patient admits to dietary indiscretion over the , he denies recent change of medications. Past Medical History Cardiac Medical History: Reports: Atrial Fibrillation, Congestive Heart Failure - Diastolic dysfunction, Coronary Artery Disease - CAROIDECTOMY LEFT SIDE, Myocardial Infarction, Hyperlipidema, Hypertension, Peripheral Vascular Disease Pulmonary Medical History: Reports: Asthma, Bronchitis, Chronic Obstructive Pulmonary Disease (COPD), Pneumonia, Sleep Apnea - On CPAP at home Neurological Medical History: Denies: Seizures Malignancy Medical History: Reports: Skin Cancer GI Medical History: Reports: Gastroesophageal Reflux Disease Musculoskeltal Medical History: Reports: Arthritis Psychiatric Medical History: Reports: Depression Hematology: Reports: Anemia Past Surgical History Past Surgical History: Reports: Coronary Artery Bypass Graft, Pacemaker - medtronic, Vascular Surgery - Left carotid endarterectomy. Endovascular AAA repair Social History Smoking Status: Former Smoker Frequency of Alcohol Use: None Hx Recreational Drug Use: No Drugs: None Hx Prescription Drug Abuse: No - Advance Directive Resuscitation Status: Full Code Family History Family History: COPD Parental Family History Reviewed: Yes Children Family History Reviewed: Yes Sibling(s) Family History Reviewed.: Yes Medication/Allergy Home Medications: Albuterol Sulfate [Proair HFA] 2 puff IH QIDP PRN 06/03/17 Apixaban [Eliquis 2.5 mg Tablet] 2.5 mg PO BID 06/03/17 Bumetanide [Bumex 1 mg Tablet] 1 mg PO BID 06/03/17 Cholecalciferol (Vitamin D3) [Vitamin D3 1000 Unit Tablet] 2,000 unit PO DAILY 06/03/17 Cilostazol [Pletal 100 mg Tablet] 100 mg PO BID 06/03/17 Clopidogrel Bisulfate [Clopidogrel] 75 mg PO DAILY 06/03/17 Cyanocobalamin (Vitamin B-12) [Vitamin B-12 1000 mcg Tablet] 1,000 mcg PO DAILY 06/03/17 Docusate Sodium [Colace 100 mg Capsule] 100 mg PO BID 06/03/17 Eplerenone [Inspra] 50 mg PO DAILY 06/03/17 Escitalopram Oxalate [Lexapro 10 mg Tablet] 10 mg PO DAILY 06/03/17 Ferrous Sulfate [Feosol 325 mg Tablet] 325 mg PO Q2DAYS 06/03/17 Finasteride [Proscar 5 mg Tablet] 5 mg PO DAILY 06/03/17 Fluticasone Propionate [Flonase Nasal Robbins 50 Mcg/Robbins 16 gm] 1 spray NASL DAILY 06/03/17 Ipratropium/Albuterol Sulfate [Duoneb 3 ml Ampul] 1 vial NEB ASDIR PRN 06/03/17 Losartan Potassium [Cozaar 100 mg Tablet] 100 mg PO DAILY 06/03/17 Metoprolol Succinate [Toprol Xl 25 mg Tab.sr] 25 mg PO DAILY 06/03/17 Montelukast Sodium [Singulair 10 mg Tablet] 10 mg PO QPM 06/03/17 Multivitamin [Multiple Vitamins] 1 tab PO DAILY 06/03/17 Nitroglycerin [Nitrostat 0.4 mg (1/150 Gr) Tabs 25/Bottle] 0.4 mg SL Q5MP PRN [place]-3 Acid Ethyl Esters [Lovaza 1 gm Capsule] 1 gm PO BID 06/03/17 Simvastatin [Zocor 20 mg Tablet] 20 mg PO QHS 06/03/17 Tamsulosin HCl [Flomax 0.4 mg Cap.sr] 0.4 mg PO DAILY 06/03/17 Vitamin E (Dl,Tocopheryl Acet) [Vitamin E] 400 unit PO DAILY 06/03/17 Cilostazol [Pletal 100 mg Tablet] 100 mg PO BIDACBS tablet 06/08/17 Clopidogrel Bisulfate [Plavix 75 mg Tablet] 75 mg PO DAILY tablet 06/08/17 Diazepam [Valium 5 mg Tablet] 2.5 mg PO DAILY #0 06/08/17 Diazepam [Valium 5 mg Tablet] 2.5 mg PO QHS tablet 06/08/17 Levofloxacin [Levaquin 250 mg Tablet] 250 mg PO DAILY 5 Days #5 tablet 06/08/17 Prednisone [Deltasone 20 mg Tablet] 40 mg PO DAILY 5 Days #10 tablet 06/08/17 Allergies/Adverse Reactions: No Known Allergies Allergy (Verified 10/18/15 13:31) Review of Systems Constitutional: PRESENT: as per HPI, fatigue, weight gain. ABSENT: fever(s) Eyes: ABSENT: visual disturbances Ears: ABSENT: hearing changes Cardiovascular: ABSENT: chest pain, dyspnea on exertion, edema, orthropnea, palpitations Respiratory: PRESENT: cough, dyspnea, sputum. ABSENT: hemoptysis Gastrointestinal: ABSENT: abdominal pain, constipation, diarrhea, hematemesis, hematochezia, nausea, vomiting Genitourinary: ABSENT: dysuria, hematuria Musculoskeletal: ABSENT: joint swelling Integumentary: ABSENT: rash, wounds Neurological: ABSENT: abnormal gait, abnormal speech, confusion, dizziness, focal weakness, syncope Psychiatric: ABSENT: anxiety, depression, homidical ideation, suicidal ideation Endocrine: ABSENT: cold intolerance, heat intolerance, polydipsia, polyuria Hematologic/Lymphatic: ABSENT: easy bleeding, easy bruising Allergic/Immunologic: PRESENT: as per HPI Physical Exam Vital Signs: Temp Pulse Resp BP Pulse Ox 99.1 F 23 H 138/56 H 94 08/04/17 22:02 08/04/17 23:43 08/04/17 23:43 08/04/17 23:43 General appearance: PRESENT: cooperative, disheveled, obese Head exam: PRESENT: atraumatic, normocephalic Eye exam: PRESENT: conjunctiva pink, EOMI, PERRLA. ABSENT: scleral icterus Ear exam: PRESENT: normal external ear exam Mouth exam: PRESENT: moist, tongue midline Teeth exam: PRESENT: poor dentation Neck exam: PRESENT: JVD Respiratory exam: PRESENT: accessory muscle use, crackles, prolonged expiratory phas, symmetrical, tachypnea. ABSENT: chest wall tenderness, rhonchi, stridor Cardiovascular exam: PRESENT: irregular rhythm, RRR. ABSENT: diastolic murmur, rubs, systolic murmur Pulses: PRESENT: normal dorsalis pedis pul Vascular exam: PRESENT: normal capillary refill GI/Abdominal exam: PRESENT: normal bowel sounds, soft. ABSENT: distended, guarding, mass, organolmegaly, rebound, tenderness Rectal exam: PRESENT: deferred Extremities exam: PRESENT: +1 edema Neurological exam: PRESENT: alert, awake, oriented to person, oriented to place , oriented to time, oriented to situation, CN II-XII grossly intact. ABSENT: motor sensory deficit Psychiatric exam: PRESENT: appropriate affect, normal mood. ABSENT: homicidal ideation, suicidal ideation Skin exam: PRESENT: dry, intact, warm. ABSENT: cyanosis, rash Results Impressions: Chest X-Ray 08/04/17 21:51 IMPRESSION: Few Sharad lines from mild interstitial edema Assessment & Plan - Diagnosis (1) Acute sinusitis Qualifiers: Sinusitis location: maxillary Is this a current diagnosis for this admission?: Yes Plan: Causing postnasal drip and microaspiration, empiric antibiotics, Flonase, chlorpheniramine (2) COPD exacerbation Is this a current diagnosis for this admission?: Yes Plan: Albuterol and Atrovent, flutter valve, empiric antibiotics. (3) Congestive heart failure Qualifiers: Congestive heart failure type: unspecified congestive heart failure type Congestive heart failure chronicity: acute on chronic Qualified Code(s): I50.9 - Heart failure, unspecified Is this a current diagnosis for this admission?: Yes Plan: volume overload secondary to dietary indiscretion, limit diuretics given stage III chronic kidney disease optimize nitrate, BiPAP and control of upper respiratory symptoms. Follow-up chemistry and cardiac enzymes (4) Obstructive sleep apnea on CPAP Is this a current diagnosis for this admission?: Yes Plan: BiPAP. - Time Time Spent: 30 to 50 Minutes - Inpatient Certification Medical Necessity: Need Close Monitoring Due to Risk of Patient Decompensation
[2017-08-05 02:41] LABS: FOLATE > 20.00 ng/mL (>2.76)
[2017-08-05] MEDS ORDERED: HEPARIN SOD (PORCINE) 5,000 UNIT/ML 1 ML SYRINGE SUBCUT SCH (06:00)
[2017-08-05 06:48] LABS: ANION GAP 18 (5-19); BLOOD UREA NITROGEN 29 mg/dL (7-20); CALCIUM 9.3 mg/dL (8.4-10.2); CARBON DIOXIDE 22 mmol/L (22-30); CHLORIDE 104 mmol/L (98-107); CREATINE KINASE 25 U/L (55-170); CREATININE RESULT 1.37 mg/dL (0.52-1.25); GLUCOSE 188 mg/dL (75-110); SODIUM 144.2 mmol/L (137-145)
[2017-08-05 07:00] LABS: CREATINE KINASE MB 1.3 ng/mL (<4.55); TROPONIN I 0.025 ng/mL
[2017-08-05] MEDS ORDERED: APIXABAN 2.5 MG TABLET PO SCH (10:00)
[2017-08-05] MEDS ORDERED: METHYLPREDNISOLONE INJ 40 MG/1 ML SDV IV ONE (10:00)
[2017-08-05] MEDS ORDERED: NITROGLYCERIN 0.4 MG/TAB 25 TAB/BOTTLE SL PRN (10:41)
[2017-08-05] MEDS: LOSARTAN POTASSIUM 50 MG TABLET PO SCH (10:46)
[2017-08-05] MEDS: DOCUSATE SODIUM 100 MG CAPSULE PO SCH ×2 (10:46→17:13)
[2017-08-05] MEDS: GUAIFENESIN 600 MG TABLET.SA PO SCH ×2 (10:47→22:33)
[2017-08-05] MEDS: FINASTERIDE 5 MG TABLET PO SCH (10:47)
[2017-08-05] MEDS: CHOLECALCIFEROL (D3) 1,000 UNIT TABLET PO SCH (10:48)
[2017-08-05] MEDS: METOPROLOL SUCCINATE 25 MG TAB.SR.24H PO SCH (10:49)
[2017-08-05] MEDS: FLUTICASONE NASAL SPRAY 50 MCG/SPRY 120 SPRAY/16 GM NASL SCH ×2 (10:51→22:31)
[2017-08-05] MEDS ORDERED: APIXABAN 2.5 MG TABLET PO ONE (11:00)
--- NOTE | 2017-08-05 11:17 | PDOC PROGRESS REPORT ---
Subjective Progress Note for:: 08/05/17 Subjective:: Patient still complains of shortness of breath but reports it slightly better. Physical Exam Vital Signs: Temp Pulse Resp BP Pulse Ox 98.0 F 67 20 122/45 L 99 08/05/17 08:04 08/05/17 08:04 08/05/17 08:04 08/05/17 08:04 08/05/17 08:04 Intake & Output 08/04/17 08/05/17 08/06/17 06:59 06:59 06:59 Intake Total 0 Output Total 225 Balance -225 Weight 96.2 kg General appearance: PRESENT: mild distress Eye exam: PRESENT: conjunctiva pink. ABSENT: scleral icterus Mouth exam: PRESENT: moist, tongue midline Neck exam: ABSENT: JVD Respiratory exam: PRESENT: wheezes - Bilateral expiratory wheezes.. ABSENT: rales, rhonchi Cardiovascular exam: PRESENT: RRR. ABSENT: diastolic murmur, rubs, systolic murmur GI/Abdominal exam: PRESENT: normal bowel sounds, soft. ABSENT: distended, guarding, mass, organolmegaly, rebound, tenderness Extremities exam: ABSENT: calf tenderness, clubbing, pedal edema Neurological exam: PRESENT: alert, awake, oriented to person, oriented to place , oriented to time, oriented to situation, CN II-XII grossly intact. ABSENT: motor sensory deficit Psychiatric exam: PRESENT: appropriate affect Skin exam: PRESENT: dry, intact, warm. ABSENT: cyanosis, rash Results Laboratory Results: 08/05/17 06:07 08/05/17 06:07 Sodium 144.2 Potassium 4.0 Chloride 104 Carbon Dioxide 22 Anion Gap 18 BUN 29 H Creatinine 1.37 H Est GFR ( Amer) > 60 Est GFR (Non-Af Amer) 49 L Glucose 188 H Calcium 9.3 08/05/17 08/05/17 06:07 06:07 Creatine Kinase 25 L CK-MB (CK-2) 1.30 Troponin I 0.025 Impressions: Chest X-Ray 08/04/17 21:51 IMPRESSION: Few Sharad lines from mild interstitial edema Assessment & Plan - Diagnosis (1) Acute and chronic respiratory failure Qualifiers: Respiratory failure complication: hypoxia Qualified Code(s): J96.21 - Acute and chronic respiratory failure with hypoxia Is this a current diagnosis for this admission?: Yes Plan: Secondary to acute COPD exacerbation. The patient has a history of congestive heart failure but appears to be be euvolemic at this time (2) COPD exacerbation Is this a current diagnosis for this admission?: Yes Plan: We will start IV Solu-Medrol. Continue with nebulizers. (3) Acute sinusitis Qualifiers: Sinusitis location: maxillary Is this a current diagnosis for this admission?: Yes Plan: Continue with Levaquin. (4) Congestive heart failure Qualifiers: Congestive heart failure type: unspecified congestive heart failure type Congestive heart failure chronicity: acute on chronic Qualified Code(s): I50.9 - Heart failure, unspecified Is this a current diagnosis for this admission?: Yes Plan: Patient is euvolemic. Patient has acute on chronic diastolic congestive heart failure (5) Hypertension Qualifiers: Hypertension type: unspecified Qualified Code(s): I10 - Essential (primary ) hypertension Is this a current diagnosis for this admission?: Yes (6) CKD (chronic kidney disease), stage III Is this a current diagnosis for this admission?: Yes (7) BPH (benign prostatic hyperplasia) Qualifiers: Lower urinary tract symptom presence: unspecified whether lower urinary tract symptoms present Qualified Code(s): N40.0 - Benign prostatic hyperplasia without lower urinary tract symptoms Is this a current diagnosis for this admission?: Yes (8) CAD (coronary artery disease) Is this a current diagnosis for this admission?: Yes Plan: Denies any chest pain (9) Essential hypertension Is this a current diagnosis for this admission?: Yes (10) Hypercholesterolemia Is this a current diagnosis for this admission?: Yes (11) Obesity Qualifiers: Body mass index: BMI 35.0-35.9 Is this a current diagnosis for this admission?: Yes (12) Obstructive sleep apnea on CPAP Is this a current diagnosis for this admission?: Yes (13) PVD (peripheral vascular disease) Is this a current diagnosis for this admission?: Yes - Time Time Spent with patient: 25-34 minutes - Inpatient Certification Medical Necessity: Need Close Monitoring Due to Risk of Patient Decompensation, Need for IV Antibiotics
[2017-08-05] MEDS ORDERED: TAMSULOSIN HCL 0.4 MG CAP.SR.24H PO ONE (11:30)
[2017-08-05] MEDS ORDERED: CLOPIDOGREL BISULFATE 75 MG TABLET PO ONE (11:30)
[2017-08-05] MEDS ORDERED: ESCITALOPRAM OXALATE 10 MG TABLET PO ONE (11:30)
[2017-08-05] MEDS ORDERED: MULTIVITAMIN TABLET PO ONE (11:30)
[2017-08-05] MEDS ORDERED: CYANOCOBALAMIN (VITAMIN B-12) 1,000 MCG TABLET PO ONE (11:30)
[2017-08-05] MEDS ORDERED: LANSOPRAZOLE 30 MG TAB.RAP.DR PO ONE (12:00)
[2017-08-05] MEDS ORDERED: OMEGA-3 ACID ETHYL ESTERS 1 GM CAPSULE PO ONE (12:00)
[2017-08-05] MEDS ORDERED: EPLERENONE 25 MG TABLET PO ONE (12:30)
[2017-08-05] MEDS ORDERED: VITAMIN E (DL, ACETATE) 400 UNIT CAPSULE PO ONE (12:30)
[2017-08-05] MEDS: BUMETANIDE 1 MG TABLET PO SCH ×2 (13:02→17:14)
[2017-08-05] MEDS: METHYLPREDNISOLONE INJ 40 MG/1 ML SDV IV SCH ×2 (13:47→22:40)
--- NOTE | 2017-08-05 14:09 | EKG REPORT ---
SEVERITY:- ABNORMAL ECG - AFIB/FLUT AND V-PACED COMPLEXES PVC : Confirmed by: January James MD 05-Aug-2017 14:08:51
[2017-08-05] MEDS: DIAZEPAM 5 MG TABLET PO SCH (22:31)
[2017-08-05] MEDS: APIXABAN 2.5 MG TABLET PO SCH (22:31)
[2017-08-05] MEDS: MONTELUKAST SODIUM 10 MG TABLET PO SCH (22:34)
[2017-08-05] MEDS: SIMVASTATIN 10 MG TABLET PO SCH (22:35)
[2017-08-06] MEDS: IPRATROPIUM/ALBUTEROL 0.5-2.5 MG/3 ML AMPUL NEB SCH ×4 (02:11→20:40)
[2017-08-06] MEDS ORDERED: IPRATROPIUM/ALBUTEROL 0.5-2.5 MG/3 ML AMPUL NEB PRN (04:21)
[2017-08-06] MEDS: LANSOPRAZOLE 30 MG TAB.RAP.DR PO SCH (05:15)
[2017-08-06] MEDS: METHYLPREDNISOLONE INJ 40 MG/1 ML SDV IV SCH ×3 (05:15→21:18)
[2017-08-06 06:24] LABS: HEMATOCRIT 32.5 % (37.9-51.0); HEMOGLOBIN 11.2 g/dL (13.5-17.0); HGB HCT DIFFERENCE 1.1; MEAN CORPUSCULAR HEMOGLOBIN 34.9 pg (27.0-33.4); MEAN CORPUSCULAR HGB CONC 34.5 g/dL (32.0-36.0); MEAN CORPUSCULAR VOLUME 101 fl (80-97); RED BLOOD COUNT 3.21 10^6/uL (4.35-5.55); RED CELL DISTRIBUTION WIDTH 14.3 % (11.5-14.0); WHITE BLOOD COUNT 11.2 10^3/uL (4.0-10.5)
[2017-08-06 06:53] LABS: ANION GAP 15 (5-19); BLOOD UREA NITROGEN 39 mg/dL (7-20); CALCIUM 9.6 mg/dL (8.4-10.2); CARBON DIOXIDE 23 mmol/L (22-30); CHLORIDE 104 mmol/L (98-107); CREATININE RESULT 1.29 mg/dL (0.52-1.25); GLUCOSE 143 mg/dL (75-110); POTASSIUM 4.2 mmol/L (3.6-5.0); SODIUM 141.8 mmol/L (137-145)
[2017-08-06 07:03] LABS: BAND NEUTROPHILS % (MANUAL) 2 % (3-5); BASOPHILS % (MANUAL) 0 % (0-2); EOSINOPHILS % (MANUAL) 0 % (0-6); LYMPHOCYTES % (MANUAL) 2 % (13-45); TOTAL CELLS COUNTED 100
[2017-08-06 07:06] LABS: ANISOCYTOSIS SLIGHT; BURR CELLS SLIGHT; OVALOCYTES 1+; POIKILOCYTOSIS 1+; POLYCHROMASIA SLIGHT; TOXIC GRANULATION SLIGHT
[2017-08-06] MEDS ORDERED: (PENDING PHARMACY ID) (Eplerenone [Inspra] 50 MG) PO SCH (10:00)
[2017-08-06] MEDS ORDERED: VITAMIN E ACETATE 400 UNIT PO SCH (10:00)
[2017-08-06] MEDS ORDERED: (PENDING PHARMACY ID) (Cholecalciferol (Vitamin D3) [Vitamin D3 2000 Unit Tablet] 2,000 UN PO SCH (10:00)
[2017-08-06] MEDS ORDERED: (PENDING PHARMACY ID) (Omega-3/Dha/Epa/Fish Oil [Fish Oil 1,000 Mg Softgel] 1,000 MG) PO SCH (10:00)
[2017-08-06] MEDS: APIXABAN 2.5 MG TABLET PO SCH ×2 (10:42→21:17)
[2017-08-06] MEDS: LOSARTAN POTASSIUM 50 MG TABLET PO SCH (10:43)
[2017-08-06] MEDS: CHOLECALCIFEROL (D3) 1,000 UNIT TABLET PO SCH (10:43)
[2017-08-06] MEDS: VITAMIN E (DL, ACETATE) 400 UNIT CAPSULE PO SCH (10:44)
[2017-08-06] MEDS: BUMETANIDE 1 MG TABLET PO SCH ×2 (10:44→17:13)
[2017-08-06] MEDS: OMEGA-3 ACID ETHYL ESTERS 1 GM CAPSULE PO SCH (10:44)
[2017-08-06] MEDS: CLOPIDOGREL BISULFATE 75 MG TABLET PO SCH (10:45)
[2017-08-06] MEDS: DOCUSATE SODIUM 100 MG CAPSULE PO SCH ×2 (10:45→17:13)
[2017-08-06] MEDS: CYANOCOBALAMIN (VITAMIN B-12) 1,000 MCG TABLET PO SCH (10:46)
[2017-08-06] MEDS: GUAIFENESIN 600 MG TABLET.SA PO SCH ×2 (10:46→21:18)
[2017-08-06] MEDS: ESCITALOPRAM OXALATE 10 MG TABLET PO SCH (10:46)
[2017-08-06] MEDS: EPLERENONE 25 MG TABLET PO SCH (10:46)
[2017-08-06] MEDS: FINASTERIDE 5 MG TABLET PO SCH (10:47)
[2017-08-06] MEDS: MULTIVITAMIN TABLET PO SCH (10:47)
[2017-08-06] MEDS: METOPROLOL SUCCINATE 25 MG TAB.SR.24H PO SCH (10:47)
[2017-08-06] MEDS: FLUTICASONE NASAL SPRAY 50 MCG/SPRY 120 SPRAY/16 GM NASL SCH ×2 (10:48→21:19)
[2017-08-06] MEDS: TAMSULOSIN HCL 0.4 MG CAP.SR.24H PO SCH (10:48)
[2017-08-06] MEDS: LEVOFLOXACIN 750 MG/D5W RTU 750 MG/150 ML RTUPB IV SCH (10:48)
--- NOTE | 2017-08-06 11:33 | PDOC PROGRESS REPORT ---
Subjective Progress Note for:: 08/06/17 Subjective:: Breathing is slightly better today. Physical Exam Vital Signs: Temp Pulse Resp BP Pulse Ox 98.6 F 68 20 153/53 H 91 L 08/06/17 08:25 08/06/17 08:35 08/06/17 08:35 08/06/17 08:25 08/06/17 08:35 Intake & Output 08/05/17 08/06/17 08/07/17 06:59 06:59 06:59 Intake Total 0 930 Output Total 225 400 Balance -225 530 Weight 96.2 kg 96.6 kg General appearance: PRESENT: no acute distress Eye exam: PRESENT: conjunctiva pink. ABSENT: scleral icterus Mouth exam: PRESENT: moist, tongue midline Neck exam: ABSENT: JVD Respiratory exam: PRESENT: wheezes - Bilateral expiratory wheezes. ABSENT: rales, rhonchi Cardiovascular exam: PRESENT: RRR. ABSENT: diastolic murmur, rubs, systolic murmur GI/Abdominal exam: PRESENT: normal bowel sounds, soft. ABSENT: distended, guarding, mass, organolmegaly, rebound, tenderness Extremities exam: ABSENT: calf tenderness, clubbing, pedal edema Neurological exam: PRESENT: alert, awake, oriented to person, oriented to place , oriented to time, oriented to situation, CN II-XII grossly intact. ABSENT: motor sensory deficit Psychiatric exam: PRESENT: appropriate affect Skin exam: PRESENT: dry, intact, warm. ABSENT: cyanosis, rash Results Laboratory Results: 08/06/17 05:46 08/06/17 05:46 08/06/17 08/06/17 05:46 05:46 WBC 11.2 H RBC 3.21 L Hgb 11.2 L Hct 32.5 L MCV 101 H MCH 34.9 H MCHC 34.5 RDW 14.3 H Plt Count 147 L Seg Neutrophils % Not Reportable Lymphocytes % Not Reportable Monocytes % Not Reportable Eosinophils % Not Reportable Basophils % Not Reportable Absolute Neutrophils Not Reportable Absolute Lymphocytes Not Reportable Absolute Monocytes Not Reportable Absolute Eosinophils Not Reportable Absolute Basophils Not Reportable Sodium 141.8 Potassium 4.2 Chloride 104 Carbon Dioxide 23 Anion Gap 15 BUN 39 H Creatinine 1.29 H Est GFR ( Amer) > 60 Est GFR (Non-Af Amer) 53 L Glucose 143 H Calcium 9.6 08/05/17 08/05/17 06:07 06:07 Creatine Kinase 25 L CK-MB (CK-2) 1.30 Troponin I 0.025 Impressions: Chest X-Ray 08/04/17 21:51 IMPRESSION: Few Sharad lines from mild interstitial edema Assessment & Plan - Diagnosis (1) Acute and chronic respiratory failure Qualifiers: Respiratory failure complication: hypoxia Qualified Code(s): J96.21 - Acute and chronic respiratory failure with hypoxia Is this a current diagnosis for this admission?: Yes Plan: Secondary to acute COPD exacerbation. The patient has a history of congestive heart failure but appears to be be euvolemic at this time (2) COPD exacerbation Is this a current diagnosis for this admission?: Yes Plan: We will continue IV Solu-Medrol. Continue with nebulizers. (3) Acute sinusitis Qualifiers: Sinusitis location: maxillary Is this a current diagnosis for this admission?: Yes Plan: Continue with Levaquin. (4) Congestive heart failure Qualifiers: Congestive heart failure type: unspecified congestive heart failure type Congestive heart failure chronicity: acute on chronic Qualified Code(s): I50.9 - Heart failure, unspecified Is this a current diagnosis for this admission?: Yes Plan: Patient is euvolemic. Patient has acute on chronic diastolic congestive heart failure (5) Hypertension Qualifiers: Hypertension type: unspecified Qualified Code(s): I10 - Essential (primary ) hypertension Is this a current diagnosis for this admission?: Yes (6) CKD (chronic kidney disease), stage III Is this a current diagnosis for this admission?: Yes (7) BPH (benign prostatic hyperplasia) Qualifiers: Lower urinary tract symptom presence: unspecified whether lower urinary tract symptoms present Qualified Code(s): N40.0 - Benign prostatic hyperplasia without lower urinary tract symptoms Is this a current diagnosis for this admission?: Yes (8) CAD (coronary artery disease) Is this a current diagnosis for this admission?: Yes Plan: Denies any chest pain (9) Essential hypertension Is this a current diagnosis for this admission?: Yes (10) Hypercholesterolemia Is this a current diagnosis for this admission?: Yes (11) Obesity Qualifiers: Body mass index: BMI 35.0-35.9 Is this a current diagnosis for this admission?: Yes (12) Obstructive sleep apnea on CPAP Is this a current diagnosis for this admission?: Yes Plan: Continue with CPAP (13) PVD (peripheral vascular disease) Is this a current diagnosis for this admission?: Yes - Time Time Spent with patient: 25-34 minutes - Inpatient Certification Medical Necessity: Need Close Monitoring Due to Risk of Patient Decompensation
[2017-08-06] MEDS: DIAZEPAM 5 MG TABLET PO SCH (21:16)
[2017-08-06] MEDS: SIMVASTATIN 10 MG TABLET PO SCH (21:17)
[2017-08-06] MEDS: MONTELUKAST SODIUM 10 MG TABLET PO SCH (21:17)
[2017-08-07] MEDS: IPRATROPIUM/ALBUTEROL 0.5-2.5 MG/3 ML AMPUL NEB SCH ×4 (02:14→20:30)
[2017-08-07] MEDS: LANSOPRAZOLE 30 MG TAB.RAP.DR PO SCH (05:52)
[2017-08-07] MEDS: METHYLPREDNISOLONE INJ 40 MG/1 ML SDV IV SCH ×3 (05:53→21:40)
[2017-08-07 06:53] LABS: HEMATOCRIT 31.6 % (37.9-51.0); HGB HCT DIFFERENCE 1.4; MEAN CORPUSCULAR HEMOGLOBIN 34.9 pg (27.0-33.4); MEAN CORPUSCULAR HGB CONC 34.7 g/dL (32.0-36.0); MEAN CORPUSCULAR VOLUME 101 fl (80-97); RED BLOOD COUNT 3.14 10^6/uL (4.35-5.55); RED CELL DISTRIBUTION WIDTH 14.5 % (11.5-14.0); WHITE BLOOD COUNT 7.9 10^3/uL (4.0-10.5)
[2017-08-07 07:20] LABS: BAND NEUTROPHILS % (MANUAL) 8 % (3-5); BASOPHILS % (MANUAL) 0 % (0-2); EOSINOPHILS % (MANUAL) 0 % (0-6); LYMPHOCYTES % (MANUAL) 6 % (13-45); TOTAL CELLS COUNTED 100
[2017-08-07 07:21] LABS: ANISOCYTOSIS SLIGHT; OVALOCYTES SLIGHT; POIKILOCYTOSIS SLIGHT; TEAR DROP CELLS SLIGHT; TOXIC GRANULATION SLIGHT; TOXIC VACUOLATION PRESENT
[2017-08-07 07:26] LABS: ANION GAP 14 (5-19); BLOOD UREA NITROGEN 50 mg/dL (7-20); CALCIUM 9.5 mg/dL (8.4-10.2); CARBON DIOXIDE 24 mmol/L (22-30); CHLORIDE 101 mmol/L (98-107); GLUCOSE 133 mg/dL (75-110); POTASSIUM 4.3 mmol/L (3.6-5.0); SODIUM 139.3 mmol/L (137-145)
[2017-08-07] MEDS: APIXABAN 2.5 MG TABLET PO SCH ×2 (09:38→22:01)
[2017-08-07] MEDS: CHOLECALCIFEROL (D3) 1,000 UNIT TABLET PO SCH (09:38)
[2017-08-07] MEDS: LOSARTAN POTASSIUM 50 MG TABLET PO SCH (09:39)
[2017-08-07] MEDS: METOPROLOL SUCCINATE 25 MG TAB.SR.24H PO SCH (09:39)
[2017-08-07] MEDS: DOCUSATE SODIUM 100 MG CAPSULE PO SCH ×2 (09:39→17:03)
[2017-08-07] MEDS: MULTIVITAMIN TABLET PO SCH (09:39)
[2017-08-07] MEDS: TAMSULOSIN HCL 0.4 MG CAP.SR.24H PO SCH (09:40)
[2017-08-07] MEDS: VITAMIN E (DL, ACETATE) 400 UNIT CAPSULE PO SCH (09:40)
[2017-08-07] MEDS: ESCITALOPRAM OXALATE 10 MG TABLET PO SCH (09:40)
[2017-08-07] MEDS: FINASTERIDE 5 MG TABLET PO SCH (09:40)
[2017-08-07] MEDS: CYANOCOBALAMIN (VITAMIN B-12) 1,000 MCG TABLET PO SCH (09:40)
[2017-08-07] MEDS: CLOPIDOGREL BISULFATE 75 MG TABLET PO SCH (09:40)
[2017-08-07] MEDS: GUAIFENESIN 600 MG TABLET.SA PO SCH ×2 (09:41→21:39)
[2017-08-07] MEDS: BUMETANIDE 1 MG TABLET PO SCH ×2 (09:41→17:03)
[2017-08-07] MEDS: LEVOFLOXACIN 750 MG/D5W RTU 750 MG/150 ML RTUPB IV SCH (09:42)
[2017-08-07] MEDS: FLUTICASONE NASAL SPRAY 50 MCG/SPRY 120 SPRAY/16 GM NASL SCH ×2 (09:42→21:41)
[2017-08-07] MEDS: EPLERENONE 25 MG TABLET PO SCH (09:42)
[2017-08-07] MEDS: OMEGA-3 ACID ETHYL ESTERS 1 GM CAPSULE PO SCH (09:42)
--- NOTE | 2017-08-07 10:39 | PDOC PROGRESS REPORT ---
Subjective Progress Note for:: 08/07/17 Subjective:: Breathing is slightly better today. Continues to complain of wheezing however. Physical Exam Vital Signs: Temp Pulse Resp BP Pulse Ox 98.3 F 72 20 135/48 H 94 08/07/17 07:29 08/07/17 08:02 08/07/17 08:02 08/07/17 07:29 08/07/17 08:02 Intake & Output 08/06/17 08/07/17 08/08/17 06:59 06:59 06:59 Intake Total 930 1005 Output Total 400 200 Balance 530 805 Weight 96.6 kg 89.6 kg General appearance: PRESENT: no acute distress Eye exam: PRESENT: conjunctiva pink. ABSENT: scleral icterus Mouth exam: PRESENT: moist, tongue midline Neck exam: ABSENT: JVD Respiratory exam: PRESENT: wheezes - Scattered expiratory wheezes. ABSENT: rales, rhonchi Cardiovascular exam: PRESENT: RRR. ABSENT: diastolic murmur, rubs, systolic murmur GI/Abdominal exam: PRESENT: normal bowel sounds, soft. ABSENT: distended, guarding, mass, organolmegaly, rebound, tenderness Extremities exam: ABSENT: calf tenderness, clubbing, pedal edema Neurological exam: PRESENT: alert, awake, oriented to person, oriented to place , oriented to time, oriented to situation, CN II-XII grossly intact. ABSENT: motor sensory deficit Psychiatric exam: PRESENT: appropriate affect Skin exam: PRESENT: dry, intact, warm. ABSENT: cyanosis, rash Results Laboratory Results: 08/07/17 06:38 08/07/17 06:38 08/07/17 08/07/17 06:38 06:38 WBC 7.9 RBC 3.14 L Hgb 11.0 L Hct 31.6 L MCV 101 H MCH 34.9 H MCHC 34.7 RDW 14.5 H Plt Count 144 L Seg Neutrophils % Not Reportable Lymphocytes % Not Reportable Monocytes % Not Reportable Eosinophils % Not Reportable Basophils % Not Reportable Absolute Neutrophils Not Reportable Absolute Lymphocytes Not Reportable Absolute Monocytes Not Reportable Absolute Eosinophils Not Reportable Absolute Basophils Not Reportable Sodium 139.3 Potassium 4.3 Chloride 101 Carbon Dioxide 24 Anion Gap 14 BUN 50 H Creatinine 1.20 Est GFR ( Amer) > 60 Est GFR (Non-Af Amer) 58 L Glucose 133 H Calcium 9.5 08/05/17 08/05/17 06:07 06:07 Creatine Kinase 25 L CK-MB (CK-2) 1.30 Troponin I 0.025 Impressions: Chest X-Ray 08/04/17 21:51 IMPRESSION: Few Sharad lines from mild interstitial edema Assessment & Plan - Diagnosis (1) Acute and chronic respiratory failure Qualifiers: Respiratory failure complication: hypoxia Qualified Code(s): J96.21 - Acute and chronic respiratory failure with hypoxia Is this a current diagnosis for this admission?: Yes Plan: Secondary to acute COPD exacerbation. The patient has a history of congestive heart failure but appears to be be euvolemic at this time (2) COPD exacerbation Is this a current diagnosis for this admission?: Yes Plan: We will continue IV Solu-Medrol. Continue with nebulizers. (3) Acute sinusitis Qualifiers: Sinusitis location: maxillary Is this a current diagnosis for this admission?: Yes Plan: Continue with Levaquin. (4) Congestive heart failure Qualifiers: Congestive heart failure type: unspecified congestive heart failure type Congestive heart failure chronicity: acute on chronic Qualified Code(s): I50.9 - Heart failure, unspecified Is this a current diagnosis for this admission?: Yes Plan: Patient is euvolemic. Patient has acute on chronic diastolic congestive heart failure (5) Hypertension Qualifiers: Hypertension type: unspecified Qualified Code(s): I10 - Essential (primary ) hypertension Is this a current diagnosis for this admission?: Yes (6) CKD (chronic kidney disease), stage III Is this a current diagnosis for this admission?: Yes (7) BPH (benign prostatic hyperplasia) Qualifiers: Lower urinary tract symptom presence: unspecified whether lower urinary tract symptoms present Qualified Code(s): N40.0 - Benign prostatic hyperplasia without lower urinary tract symptoms Is this a current diagnosis for this admission?: Yes (8) CAD (coronary artery disease) Is this a current diagnosis for this admission?: Yes Plan: Denies any chest pain (9) Essential hypertension Is this a current diagnosis for this admission?: Yes (10) Hypercholesterolemia Is this a current diagnosis for this admission?: Yes (11) Obesity Qualifiers: Body mass index: BMI 35.0-35.9 Is this a current diagnosis for this admission?: Yes (12) Obstructive sleep apnea on CPAP Is this a current diagnosis for this admission?: Yes Plan: he is using his home CPAP. (13) PVD (peripheral vascular disease) Is this a current diagnosis for this admission?: Yes - Time Time Spent with patient: 25-34 minutes - Inpatient Certification Medical Necessity: Need Close Monitoring Due to Risk of Patient Decompensation - Plan Summary Plan Summary: Patient continues to improve. He may be able to go home tomorrow if his wheezing resolves.
[2017-08-07] MEDS: SIMVASTATIN 10 MG TABLET PO SCH (21:39)
[2017-08-07] MEDS: MONTELUKAST SODIUM 10 MG TABLET PO SCH (21:40)
[2017-08-07] MEDS: DIAZEPAM 5 MG TABLET PO SCH (21:40)
[2017-08-08] MEDS: IPRATROPIUM/ALBUTEROL 0.5-2.5 MG/3 ML AMPUL NEB SCH ×4 (01:15→20:48)
[2017-08-08] MEDS: LANSOPRAZOLE 30 MG TAB.RAP.DR PO SCH (05:31)
[2017-08-08] MEDS: METHYLPREDNISOLONE INJ 40 MG/1 ML SDV IV SCH ×3 (05:31→21:13)
[2017-08-08 06:43] LABS: HEMATOCRIT 33.3 % (37.9-51.0); HEMOGLOBIN 11.4 g/dL (13.5-17.0); HGB HCT DIFFERENCE 0.9; MEAN CORPUSCULAR HEMOGLOBIN 34.6 pg (27.0-33.4); MEAN CORPUSCULAR HGB CONC 34.4 g/dL (32.0-36.0); MEAN CORPUSCULAR VOLUME 101 fl (80-97); RED CELL DISTRIBUTION WIDTH 14.3 % (11.5-14.0); WHITE BLOOD COUNT 6.7 10^3/uL (4.0-10.5)
[2017-08-08 07:09] LABS: ANION GAP 14 (5-19); BLOOD UREA NITROGEN 51 mg/dL (7-20); CALCIUM 9.4 mg/dL (8.4-10.2); CARBON DIOXIDE 27 mmol/L (22-30); CHLORIDE 102 mmol/L (98-107); CREATININE RESULT 1.11 mg/dL (0.52-1.25); GLUCOSE 142 mg/dL (75-110); POTASSIUM 4.2 mmol/L (3.6-5.0); SODIUM 142.6 mmol/L (137-145)
[2017-08-08 07:39] LABS: BAND NEUTROPHILS % (MANUAL) 3 % (3-5); BASOPHILS % (MANUAL) 0 % (0-2); EOSINOPHILS % (MANUAL) 0 % (0-6); LYMPHOCYTES % (MANUAL) 4 % (13-45); POLYCHROMASIA SLIGHT; TOTAL CELLS COUNTED 100
[2017-08-08 07:40] LABS: ANISOCYTOSIS SLIGHT; OVALOCYTES 1+; POIKILOCYTOSIS 1+
[2017-08-08] MEDS: APIXABAN 2.5 MG TABLET PO SCH ×2 (09:26→21:12)
[2017-08-08] MEDS: BUMETANIDE 1 MG TABLET PO SCH ×2 (09:27→17:37)
[2017-08-08] MEDS: FLUTICASONE NASAL SPRAY 50 MCG/SPRY 120 SPRAY/16 GM NASL SCH ×2 (09:27→21:13)
[2017-08-08] MEDS: VITAMIN E (DL, ACETATE) 400 UNIT CAPSULE PO SCH (09:29)
[2017-08-08] MEDS: MULTIVITAMIN TABLET PO SCH (09:29)
[2017-08-08] MEDS: OMEGA-3 ACID ETHYL ESTERS 1 GM CAPSULE PO SCH (09:29)
[2017-08-08] MEDS: DOCUSATE SODIUM 100 MG CAPSULE PO SCH ×2 (09:29→17:37)
[2017-08-08] MEDS: TAMSULOSIN HCL 0.4 MG CAP.SR.24H PO SCH (09:30)
[2017-08-08] MEDS: FINASTERIDE 5 MG TABLET PO SCH (09:30)
[2017-08-08] MEDS: CHOLECALCIFEROL (D3) 1,000 UNIT TABLET PO SCH (09:30)
[2017-08-08] MEDS: GUAIFENESIN 600 MG TABLET.SA PO SCH ×2 (09:30→21:12)
[2017-08-08] MEDS: CLOPIDOGREL BISULFATE 75 MG TABLET PO SCH (09:31)
[2017-08-08] MEDS: LOSARTAN POTASSIUM 50 MG TABLET PO SCH (09:31)
[2017-08-08] MEDS: METOPROLOL SUCCINATE 25 MG TAB.SR.24H PO SCH (09:31)
[2017-08-08] MEDS: EPLERENONE 25 MG TABLET PO SCH (09:31)
[2017-08-08] MEDS: CYANOCOBALAMIN (VITAMIN B-12) 1,000 MCG TABLET PO SCH (09:31)
[2017-08-08] MEDS: ESCITALOPRAM OXALATE 10 MG TABLET PO SCH (09:32)
[2017-08-08] MEDS: LEVOFLOXACIN 750 MG/D5W RTU 750 MG/150 ML RTUPB IV SCH (09:32)
--- NOTE | 2017-08-08 17:43 | PDOC PROGRESS REPORT ---
Subjective Progress Note for:: 08/08/17 Subjective:: This is a follow-up visit for COPD exacerbation. The patient states that he is starting to cough up phlegm. He is concerned about being discharged today, stating that he feels he was released from the hospital too early the last time. Apparently he is supposed to be doing an outpatient lung test. 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 He is supposed to follow-up as an outpatient. His PCP is currently Dr. Diaz. The patient states that he is a leftover primary care patient from her previous practice. Reason For Visit: COPD EXACERBATION Physical Exam Vital Signs: Temp Pulse Resp BP Pulse Ox 97.4 F 56 L 22 H 140/52 H 94 08/08/17 12:09 08/08/17 12:09 08/08/17 12:09 08/08/17 12:09 08/08/17 12:09 Intake & Output 08/07/17 08/08/17 08/09/17 06:59 06:59 06:59 Intake Total 1005 959 459 Output Total 200 Balance 805 959 459 Weight 89.6 kg 93.7 kg GENERAL: This is a well-developed, well-nourished obese white male resting in his recliner currently in no acute distress. HEART: Regular rate and rhythm. No murmurs, rubs or gallops. LUNGS: Coarse breath sounds at the bases bilaterally with equal rise and fall the chest. Occasional expiratory wheeze. ABDOMEN: Soft, nontender, obese nondistended with normoactive bowel sounds EXTREMETIES: No clubbing, cyanosis. 1+ nonpitting edema. 2+ peripheral pulses bilaterally. NEURO: Awake, alert and oriented 3. Cranial nerves II through XII are grossly intact. Results Laboratory Results: 08/08/17 05:36 08/08/17 05:36 08/08/17 08/08/17 05:36 05:36 WBC 6.7 RBC 3.30 L Hgb 11.4 L Hct 33.3 L MCV 101 H MCH 34.6 H MCHC 34.4 RDW 14.3 H Plt Count 154 Seg Neutrophils % Not Reportable Lymphocytes % Not Reportable Monocytes % Not Reportable Eosinophils % Not Reportable Basophils % Not Reportable Absolute Neutrophils Not Reportable Absolute Lymphocytes Not Reportable Absolute Monocytes Not Reportable Absolute Eosinophils Not Reportable Absolute Basophils Not Reportable Sodium 142.6 Potassium 4.2 Chloride 102 Carbon Dioxide 27 Anion Gap 14 BUN 51 H Creatinine 1.11 Est GFR ( Amer) > 60 Est GFR (Non-Af Amer) > 60 Glucose 142 H Calcium 9.4 08/05/17 08/05/17 06:07 06:07 Creatine Kinase 25 L CK-MB (CK-2) 1.30 Troponin I 0.025 Impressions: Chest X-Ray 08/04/17 21:51 IMPRESSION: Few Sharad lines from mild interstitial edema Assessment & Plan - Diagnosis (1) Acute and chronic respiratory failure Qualifiers: Respiratory failure complication: hypoxia Qualified Code(s): J96.21 - Acute and chronic respiratory failure with hypoxia Is this a current diagnosis for this admission?: Yes Plan: Improved overall. This is secondary to underlying heart failure as well as COPD. 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 The patient however has not been told this specifically by his pelota maker. He is quite concerned that he has repeated visits in to the hospital and that he is constantly coughing. Continue nebulizer treatments and various inhalers as well as steroids. (2) COPD exacerbation Is this a current diagnosis for this admission?: Yes Plan: Management as above. (3) Congestive heart failure Qualifiers: Congestive heart failure type: unspecified congestive heart failure type Congestive heart failure chronicity: acute on chronic Qualified Code(s): I50.9 - Heart failure, unspecified Is this a current diagnosis for this admission?: Yes Plan: Acute on chronic diastolic heart failure. Status post diuresis. Continue home medications. (4) Hypertension Qualifiers: Hypertension type: unspecified Qualified Code(s): I10 - Essential (primary ) hypertension Is this a current diagnosis for this admission?: Yes Plan: Continue current medicines. (5) CKD (chronic kidney disease), stage III Is this a current diagnosis for this admission?: Yes Plan: Stable. (6) Acute sinusitis Qualifiers: Sinusitis location: maxillary Is this a current diagnosis for this admission?: Yes - Time Time Spent with patient: 15-24 minutes
[2017-08-08] MEDS: MONTELUKAST SODIUM 10 MG TABLET PO SCH (21:13)
[2017-08-08] MEDS: SIMVASTATIN 10 MG TABLET PO SCH (21:13)
[2017-08-08] MEDS: DIAZEPAM 5 MG TABLET PO SCH (21:14)
[2017-08-09] MEDS: IPRATROPIUM/ALBUTEROL 0.5-2.5 MG/3 ML AMPUL NEB SCH ×2 (01:57→08:52)
[2017-08-09] MEDS: LANSOPRAZOLE 30 MG TAB.RAP.DR PO SCH (05:10)
[2017-08-09] MEDS: METHYLPREDNISOLONE INJ 40 MG/1 ML SDV IV SCH (05:13)
[2017-08-09] MEDS: FLUTICASONE NASAL SPRAY 50 MCG/SPRY 120 SPRAY/16 GM NASL SCH (09:58)
[2017-08-09] MEDS: EPLERENONE 25 MG TABLET PO SCH (09:59)
[2017-08-09] MEDS: APIXABAN 2.5 MG TABLET PO SCH (10:00)
[2017-08-09] MEDS: VITAMIN E (DL, ACETATE) 400 UNIT CAPSULE PO SCH (10:00)
[2017-08-09] MEDS: BUMETANIDE 1 MG TABLET PO SCH (10:00)
[2017-08-09] MEDS ORDERED: LEVOFLOXACIN 750 MG TABLET PO SCH (10:00)
[2017-08-09] MEDS: OMEGA-3 ACID ETHYL ESTERS 1 GM CAPSULE PO SCH (10:01)
[2017-08-09] MEDS: FINASTERIDE 5 MG TABLET PO SCH (10:02)
[2017-08-09] MEDS: CHOLECALCIFEROL (D3) 1,000 UNIT TABLET PO SCH (10:02)
[2017-08-09] MEDS: LOSARTAN POTASSIUM 50 MG TABLET PO SCH (10:02)
[2017-08-09] MEDS: GUAIFENESIN 600 MG TABLET.SA PO SCH (10:03)
[2017-08-09] MEDS: CLOPIDOGREL BISULFATE 75 MG TABLET PO SCH (10:03)
[2017-08-09] MEDS: TAMSULOSIN HCL 0.4 MG CAP.SR.24H PO SCH (10:03)
[2017-08-09] MEDS: MULTIVITAMIN TABLET PO SCH (10:04)
[2017-08-09] MEDS: DOCUSATE SODIUM 100 MG CAPSULE PO SCH (10:04)
[2017-08-09] MEDS: ESCITALOPRAM OXALATE 10 MG TABLET PO SCH (10:04)
[2017-08-09] MEDS: CYANOCOBALAMIN (VITAMIN B-12) 1,000 MCG TABLET PO SCH (10:04)
[2017-08-09] MEDS: METOPROLOL SUCCINATE 25 MG TAB.SR.24H PO SCH (10:05)
--- NOTE | 2017-08-09 13:28 | PDOC DISCHARGE SUMMARY ---
General - Admit/Disc Date/PCP Admission Date/Primary Care Provider: 08/05/17 00:50 MARY ANN SIM MD Discharge Date: 08/09/17 - Discharge Diagnosis (1) Acute and chronic respiratory failure Is this a current diagnosis for this admission?: Yes Summary: Improved. Continue home oxygen therapy. (2) COPD exacerbation Is this a current diagnosis for this admission?: Yes Summary: Much improved. Continue steroid taper and antibiotics at home. Follow-up with Dr. Brooks in a week. (3) Congestive heart failure Is this a current diagnosis for this admission?: Yes Summary: Acute on chronic diastolic heart failure. Status post diuresis. Continue home Lasix. Continue fluid restriction and daily weights at home. (4) Hypertension Is this a current diagnosis for this admission?: Yes Summary: Continue home medications (5) CKD (chronic kidney disease), stage III Is this a current diagnosis for this admission?: Yes Summary: Stable (6) Acute sinusitis Is this a current diagnosis for this admission?: Yes Summary: Continue Levaquin - Additional Information Resuscitation Status: Full Code Discharge Diet: Cardiac Discharge Activity: Activity As Tolerated, Balance Activity w/Rest, Weigh Daily Home Medications: Apixaban [Eliquis 2.5 mg Tablet] 2.5 mg PO Q12 08/05/17 Bumetanide [Bumex 1 mg Tablet] 1 mg PO BID 08/05/17 Cholecalciferol (Vitamin D3) [Vitamin D3 2000 unit Tablet] 2,000 unit PO DAILY 08/05/17 Clopidogrel Bisulfate [Plavix 75 mg Tablet] 75 mg PO DAILY 08/05/17 Cyanocobalamin (Vitamin B-12) [Vitamin B-12] 1,000 mcg PO DAILY 08/05/17 Diazepam [Valium 5 mg Tablet] 5 mg PO DAILY 08/05/17 Eplerenone [Inspra] 50 mg PO DAILY 08/05/17 Escitalopram Oxalate [Lexapro 10 mg Tablet] 10 mg PO DAILY 08/05/17 Finasteride [Proscar 5 mg Tablet] 5 mg PO DAILY 08/05/17 Losartan Potassium [Cozaar 100 mg Tablet] 100 mg PO DAILY 08/05/17 Montelukast Sodium [Singulair 10 mg Tablet] 10 mg PO QHS 08/05/17 Multivitamin [Tab-A-Jerome (Multiple Vitamin) Tablet] 1 tab PO DAILY 08/05/17 Nitroglycerin [Nitrostat 0.4 mg (1/150 Gr) Tabs 25/Bottle] 1 tab SL Q5MP PRN [place]-3/Dha/Epa/Fish Oil [Fish Oil 1,000 mg Softgel] 1,000 mg PO DAILY 08/05/17 Omeprazole 40 mg PO DAILY 08/05/17 Simvastatin [Zocor 20 mg Tablet] 20 mg PO QHS 08/05/17 Tamsulosin HCl [Flomax 0.4 mg Cap.sr] 0.4 mg PO DAILY 08/05/17 Vitamin E Acetate [Vitamin E] 400 unit PO DAILY 08/05/17 Fluticasone Propionate [Flonase Nasal Humble 50 Mcg/Humble 16 gm] 2 spray NASL Q12 spray.pump 08/09/17 Guaifenesin [Mucinex Sr 600 mg Tablet.sa] 1,200 mg PO Q12 #14 tablet.sa Levofloxacin [Levaquin 750 mg Tablet] 750 mg PO DAILY #5 tablet 08/09/17 Metoprolol Succinate [Toprol Xl 25 mg Tab.sr] 25 mg PO DAILY tab.sr.24h Prednisone 20 mg PO ASDIR PRN #15 tablet 08/09/17 History of Present Illness History of Present Illness: ZAHIRA ROLLINS is a 87 year old white male admitted to the service with COPD exacerbation. Please see the admission H&P below for details as per the admitting physician. Admission Date/PCP: 08/05/17 00:50 MARY ANN SIM MD Patient complains of: Shortness of breath History of Present Illness: ZAHIRA ROLLINS is a 87 year old male with a past medical history of COPD with chronic bronchitis, stage III chronic kidney disease, obstructive sleep apnea, coronary artery bypass graft remotely, permanent pacemaker and congestive heart failure. Patient presents after approximately 48 hours of rhinorrhea, sinus congestion, productive cough with yellow sputum and lower extremity edema. Denying chest pain, fever, chills, nausea or vomiting. In the emergency room he was found to have pulmonary vascular congestion he receives breathing treatment, empiric antibiotic, diuresis and referred the hospitalist for admission. Patient admits to dietary indiscretion over the , he denies recent change of medications. Hospital Course Hospital Course: Patient was admitted to the hospital and started on Solu-Medrol as well as Levaquin and nebulizer treatments. The patient was also felt to have acute on chronic heart failure secondary to dietary indiscretion. He was diuresed and is now euvolemic. He slowly made improvements on a daily basis and is now fit for discharge. The patient is chronically oxygen dependent and has enough oxygen at home. He has been provided prescriptions for steroid taper as well as antibiotics. 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 Physical Exam Vital Signs: Temp Pulse Resp BP Pulse Ox 97.4 F 64 24 H 142/48 H 96 08/09/17 11:41 08/09/17 11:41 08/09/17 11:41 08/09/17 11:41 08/09/17 11:41 Intake & Output 08/08/17 08/09/17 08/10/17 06:59 06:59 06:59 Intake Total 959 932 681 Balance 959 932 681 Weight 93.7 kg 93.7 kg GENERAL: This is a well-developed, well-nourished obese white male resting in his recliner currently in no acute distress. HEART: Regular rate and rhythm. No murmurs, rubs or gallops. LUNGS: Diminished at the bases bilaterally with equal rise and fall the chest. No wheezes rales or rhonchi. ABDOMEN: Soft, nontender, obese nondistended with normoactive bowel sounds EXTREMETIES: No clubbing, cyanosis. Trace to 1+ nonpitting edema. 2+ peripheral pulses bilaterally. NEURO: Awake, alert and oriented 3. Cranial nerves II through XII are grossly intact. Results Laboratory Results: 08/08/17 05:36 08/08/17 05:36 08/05/17 08/05/17 06:07 06:07 Creatine Kinase 25 L CK-MB (CK-2) 1.30 Troponin I 0.025 Impressions: Chest X-Ray 08/04/17 21:51 IMPRESSION: Few Sharad lines from mild interstitial edema Qualifiers PATEINT BEING DISCHARGED WITH ANY OF THE FOLLOWING DIAGNOSIS?: No Plan Time Spent: Less than 30 Minutes
[2017-08-09 13:58] VITALS: BP 135/60
== END 2017-08-09 15:02 | disposition home health service (06) | DRG 190 ==
LOC: ER 21:37 → OBSVTOIN 08-05 00:50 → INTOOBSV 08-05 00:50 → EH 08-05 00:50 → 3S 08-05 03:40
PROVIDERS: ADMIT Internal Medicine; ATTEND Internal Medicine Nephrology
PROC: 5A09357 Assistance with Respiratory Ventilation, Less than 24 Consecutive Hours, Continuous Positive Airway Pressure (ICD-10-PCS; principal; 2017-08-05)
PROC: 3E0F73Z Introduction of Anti-inflammatory into Respiratory Tract, Via Natural or Artificial Opening (ICD-10-PCS; 2017-08-05)
DX: J44.1 Chronic obstructive pulmonary disease with (acute) exacerbation (principal); J96.21 Acute and chronic respiratory failure with hypoxia; I50.33 Acute on chronic diastolic (congestive) heart failure; I13.0 Hypertensive heart and chronic kidney disease with heart failure and stage 1 through stage 4 chronic kidney disease, or unspecified chronic kidney disease; I45.2 Bifascicular block; N17.9 Acute kidney failure, unspecified; N18.3 Chronic kidney disease, stage 3 (moderate); G47.33 Obstructive sleep apnea (adult) (pediatric); E66.9 Obesity, unspecified; Z68.33 Body mass index [BMI] 33.0-33.9, adult; I48.91 Unspecified atrial fibrillation; I25.10 Atherosclerotic heart disease of native coronary artery without angina pectoris; K21.9 Gastro-esophageal reflux disease without esophagitis; M19.90 Unspecified osteoarthritis, unspecified site; F32.9 Major depressive disorder, single episode, unspecified; J01.00 Acute maxillary sinusitis, unspecified; E78.00 Pure hypercholesterolemia, unspecified; N40.0 Benign prostatic hyperplasia without lower urinary tract symptoms; I73.9 Peripheral vascular disease, unspecified; Z99.81 Dependence on supplemental oxygen; Z79.899 Other long term (current) drug therapy; Z95.1 Presence of aortocoronary bypass graft; Z95.0 Presence of cardiac pacemaker; I25.2 Old myocardial infarction; Z85.828 Personal history of other malignant neoplasm of skin; Z87.891 Personal history of nicotine dependence; Z83.6 Family history of other diseases of the respiratory system
CPT/HCPCS: 36415; 71010; 80048; 80053; 82550; 82553; 82607; 82728; 82746; 83540; 83550; 83880; 84484; 85025; 85045; 87040; 93005; 93010; 94640; 94660; 94799; 96374; 99285; G0378; J1644; J1940; J1956; J2920; J3490; J7620

== ENCOUNTER → 2017-08-17 | Outpatient (CLI) | payer MEDICARE, BC | LOC: OD 14:54 | PROVIDERS: ATTEND Urology | DX: R97.20 Elevated prostate specific antigen [PSA] (principal) | CPT/HCPCS: 36415; 84153 ==

== ENCOUNTER → 2017-08-28 | Outpatient (CLI) | payer MEDICARE, BC ==
[2017-08-28 17:38] LABS: ANION GAP 11 (5-19); BLOOD UREA NITROGEN 27 mg/dL (7-20); CALCIUM 10.1 mg/dL (8.4-10.2); CARBON DIOXIDE 30 mmol/L (22-30); CHLORIDE 101 mmol/L (98-107); CREATININE RESULT 1.15 mg/dL (0.52-1.25); GLUCOSE 94 mg/dL (75-110); POTASSIUM 4.3 mmol/L (3.6-5.0); SODIUM 141.9 mmol/L (137-145)
== END ==
LOC: OD 15:59
PROVIDERS: ATTEND Internal Medicine Cardiovascular Disease
DX: R06.02 Shortness of breath (principal); Z79.899 Other long term (current) drug therapy
CPT/HCPCS: 36415; 80048; 83880

== ENCOUNTER → 2017-09-08 | Outpatient (CLI) | payer MEDICARE, BC ==
[2017-09-08 12:32] LABS: HEMATOCRIT 35.2 % (37.9-51.0); MEAN CORPUSCULAR HEMOGLOBIN 33.6 pg (27.0-33.4); MEAN CORPUSCULAR HGB CONC 34.2 g/dL (32.0-36.0); MEAN CORPUSCULAR VOLUME 98 fl (80-97); PLATELET COUNT 200 10^3/uL (150-450); RED BLOOD COUNT 3.58 10^6/uL (4.35-5.55); RED CELL DISTRIBUTION WIDTH 14.2 % (11.5-14.0); WHITE BLOOD COUNT 6.8 10^3/uL (4.0-10.5)
[2017-09-08 12:41] LABS: APPEARANCE,URINE CLEAR; BILIRUBIN,URINE NEGATIVE (NEGATIVE); COLOR,URINE YELLOW; GLUCOSE, URINE NEGATIVE (NEGATIVE); KETONES,URINE NEGATIVE (NEGATIVE); LEUKOCYTE ESTERASE,URINE NEGATIVE (NEGATIVE); NITRITE,URINE NEGATIVE (NEGATIVE); PROTEIN,URINE NEGATIVE (NEGATIVE); URINE SPECIFIC GRAVITY 1.009; UROBILINOGEN,URINE NEGATIVE mg/dL (<2.0)
[2017-09-08 13:05] LABS: ALANINE AMINOTRANSFERASE 28 U/L (21-72); ALKALINE PHOSPHATASE 79 U/L (38-126); ANION GAP 12 (5-19); ASPARTATE AMINO TRANSFERASE 21 U/L (17-59); BILIRUBIN,DIRECT 0.3 mg/dL (0.0-0.4); BILIRUBIN,TOTAL 0.6 mg/dL (0.2-1.3); BLOOD UREA NITROGEN 23 mg/dL (7-20); CALCIUM 10.1 mg/dL (8.4-10.2); CARBON DIOXIDE 29 mmol/L (22-30); CHLORIDE 102 mmol/L (98-107); CHOLESTEROL 157.98 mg/dL (0-200); GLUCOSE 99 mg/dL (75-110); POTASSIUM 4.2 mmol/L (3.6-5.0); SODIUM 142.7 mmol/L (137-145); TOTAL PROTEIN 7.4 g/dL (6.3-8.2); TRIGLYCERIDES 112 mg/dL (<150)
[2017-09-08 13:16] LABS: DIRECT LDL 88 mg/dL (<100)
== END ==
LOC: OD 11:36
PROVIDERS: ATTEND Internal Medicine Cardiovascular Disease
DX: Z79.899 Other long term (current) drug therapy (principal); Z79.01 Long term (current) use of anticoagulants; E78.2 Mixed hyperlipidemia
CPT/HCPCS: 36415; 80048; 80061; 80076; 81001; 82272; 85027; 85730

== ENCOUNTER → 2017-10-05 | Outpatient (CLI) | payer MEDICARE, BC ==
[2017-10-09 14:42] LABS: LYME DISEASE IGM AB <0.80 index (0.00-0.79)
[2017-10-09 21:08] LABS: ROCKY MTN SPOTTED FEV IGG EIA Negative (Negative)
[2017-10-10 07:13] LABS: ROCKY MTN SPOTTED FEVER IGM AB 0.23 index (0.00-0.89)
== END ==
LOC: OD 12:48
PROVIDERS: ATTEND Internal Medicine Nephrology
DX: R21 Rash and other nonspecific skin eruption (principal)
CPT/HCPCS: 36415; 86617; 86618; 86757

== ENCOUNTER → 2017-11-28 | Outpatient (CLI) | payer MEDICARE, BC ==
[2017-11-28 10:22] LABS: APPEARANCE,URINE CLEAR; BILIRUBIN,URINE NEGATIVE (NEGATIVE); COLOR,URINE YELLOW; GLUCOSE, URINE NEGATIVE (NEGATIVE); KETONES,URINE NEGATIVE (NEGATIVE); LEUKOCYTE ESTERASE,URINE NEGATIVE (NEGATIVE); NITRITE,URINE NEGATIVE (NEGATIVE); PROTEIN,URINE NEGATIVE (NEGATIVE); URINE SPECIFIC GRAVITY 1.012; UROBILINOGEN,URINE NEGATIVE mg/dL (<2.0)
[2017-11-28 10:28] LABS: ALANINE AMINOTRANSFERASE 19 U/L (21-72); ALBUMIN 4.1 g/dL (3.5-5.0); ALKALINE PHOSPHATASE 66 U/L (38-126); ANION GAP 11 (5-19); ASPARTATE AMINO TRANSFERASE 25 U/L (17-59); BILIRUBIN,DIRECT 0.2 mg/dL (0.0-0.4); BILIRUBIN,TOTAL 0.7 mg/dL (0.2-1.3); BLOOD UREA NITROGEN 30 mg/dL (7-20); CALCIUM 9.9 mg/dL (8.4-10.2); CARBON DIOXIDE 29 mmol/L (22-30); CHLORIDE 103 mmol/L (98-107); CHOLESTEROL 137.96 mg/dL (0-200); GLUCOSE 96 mg/dL (75-110); POTASSIUM 4.1 mmol/L (3.6-5.0); SODIUM 143.3 mmol/L (137-145); TOTAL PROTEIN 7.2 g/dL (6.3-8.2); TRIGLYCERIDES 137 mg/dL (<150)
[2017-11-28 10:29] LABS: ABSOLUTE EOSINOPHILS # (AUTO) 0.1 10^3/uL (0.0-0.6); ABSOLUTE LYMPHOCYTES (AUTO) 0.8 10^3/uL (0.5-4.7); ABSOLUTE NEUT (AUTO) 4.9 10^3/uL (1.7-8.2); BASOPHILS % (AUTO) 0.6 % (0-2); EOSINOPHILS % (AUTO) 2.1 % (0-6); HEMATOCRIT 36.8 % (37.9-51.0); HEMOGLOBIN 12.6 g/dL (13.5-17.0); LYMPHOCYTES % (AUTO) 11.5 % (13-45); MEAN CORPUSCULAR HEMOGLOBIN 33.6 pg (27.0-33.4); MEAN CORPUSCULAR HGB CONC 34.2 g/dL (32.0-36.0); MEAN CORPUSCULAR VOLUME 98 fl (80-97); MONOCYTES % (AUTO) 14.1 % (3-13); RED BLOOD COUNT 3.74 10^6/uL (4.35-5.55); SEGMENTED NEUTROPHILS % (AUTO) 71.7 % (42-78); TOTAL CELLS COUNTED % (AUTO) 100 %; WHITE BLOOD COUNT 6.8 10^3/uL (4.0-10.5)
[2017-11-28 10:39] LABS: DIRECT LDL 77 mg/dL (<100)
[2017-11-28 10:58] LABS: PLATELET COUNT 131 10^3/uL (150-450)
[2017-11-29 11:40] LABS: CREATININE URINE 81.7 mg/dL (Not Estab.); MICROALBUMIN URINE 19.3 ug/mL (Not Estab.)
== END ==
LOC: OD 09:23
PROVIDERS: ATTEND Internal Medicine Nephrology
DX: N18.3 Chronic kidney disease, stage 3 (moderate) (principal); E78.2 Mixed hyperlipidemia; D64.9 Anemia, unspecified
CPT/HCPCS: 36415; 80053; 80061; 81001; 82043; 82570; 85025

== ENCOUNTER → 2017-12-11 | Outpatient (CLI) | payer MEDICARE, BC ==
[2017-12-11 11:47] LABS: HEMATOCRIT 39.8 % (37.9-51.0); HEMOGLOBIN 13.5 g/dL (13.5-17.0); MEAN CORPUSCULAR HEMOGLOBIN 33.1 pg (27.0-33.4); MEAN CORPUSCULAR VOLUME 97 fl (80-97); PLATELET COUNT 242 10^3/uL (150-450); RED BLOOD COUNT 4.09 10^6/uL (4.35-5.55); RED CELL DISTRIBUTION WIDTH 13.9 % (11.5-14.0); WHITE BLOOD COUNT 12.6 10^3/uL (4.0-10.5)
[2017-12-11 12:16] LABS: ALANINE AMINOTRANSFERASE 36 U/L (21-72); ALBUMIN 4.3 g/dL (3.5-5.0); ALKALINE PHOSPHATASE 67 U/L (38-126); ASPARTATE AMINO TRANSFERASE 19 U/L (17-59); BILIRUBIN,DIRECT 0.3 mg/dL (0.0-0.4); BILIRUBIN,TOTAL 0.5 mg/dL (0.2-1.3); BLOOD UREA NITROGEN 44 mg/dL (7-20); CALCIUM 10.2 mg/dL (8.4-10.2); CHLORIDE 102 mmol/L (98-107); GLUCOSE 117 mg/dL (75-110); POTASSIUM 4.4 mmol/L (3.6-5.0); SODIUM 143.5 mmol/L (137-145); TOTAL PROTEIN 7.6 g/dL (6.3-8.2)
[2017-12-11 12:17] LABS: APPEARANCE,URINE CLEAR; BILIRUBIN,URINE NEGATIVE (NEGATIVE); COLOR,URINE YELLOW; GLUCOSE, URINE NEGATIVE (NEGATIVE); KETONES,URINE NEGATIVE (NEGATIVE); LEUKOCYTE ESTERASE,URINE NEGATIVE (NEGATIVE); NITRITE,URINE NEGATIVE (NEGATIVE); PROTEIN,URINE NEGATIVE (NEGATIVE); URINE SPECIFIC GRAVITY 1.017; UROBILINOGEN,URINE NEGATIVE mg/dL (<2.0)
[2017-12-11 12:25] LABS: ANION GAP 12 (5-19); CARBON DIOXIDE 30 mmol/L (22-30)
== END ==
LOC: OD 11:12
PROVIDERS: ATTEND Internal Medicine Cardiovascular Disease
DX: I48.2 Chronic atrial fibrillation (principal); Z79.01 Long term (current) use of anticoagulants; Z79.899 Other long term (current) drug therapy
CPT/HCPCS: 36415; 80048; 80076; 81001; 82272; 85027; 85730

== ENCOUNTER → 2018-03-23 | Outpatient (CLI) | payer MEDICARE, BC ==
[2018-03-23 14:51] LABS: HEMATOCRIT 34.9 % (37.9-51.0); HEMOGLOBIN 12.3 g/dL (13.5-17.0); MEAN CORPUSCULAR HEMOGLOBIN 34.5 pg (27.0-33.4); MEAN CORPUSCULAR HGB CONC 35.2 g/dL (32.0-36.0); MEAN CORPUSCULAR VOLUME 98 fl (80-97); PLATELET COUNT 164 10^3/uL (150-450); RED BLOOD COUNT 3.55 10^6/uL (4.35-5.55); RED CELL DISTRIBUTION WIDTH 14.1 % (11.5-14.0); WHITE BLOOD COUNT 5.4 10^3/uL (4.0-10.5)
[2018-03-23 15:08] LABS: APPEARANCE,URINE CLEAR; BILIRUBIN,URINE NEGATIVE (NEGATIVE); COLOR,URINE YELLOW; GLUCOSE, URINE NEGATIVE (NEGATIVE); KETONES,URINE NEGATIVE (NEGATIVE); LEUKOCYTE ESTERASE,URINE NEGATIVE (NEGATIVE); NITRITE,URINE NEGATIVE (NEGATIVE); PROTEIN,URINE NEGATIVE (NEGATIVE); URINE SPECIFIC GRAVITY 1.008; UROBILINOGEN,URINE NEGATIVE mg/dL (<2.0)
[2018-03-23 15:11] LABS: ALANINE AMINOTRANSFERASE 24 U/L (21-72); ALBUMIN 4.3 g/dL (3.5-5.0); ALKALINE PHOSPHATASE 85 U/L (38-126); ANION GAP 14 (5-19); ASPARTATE AMINO TRANSFERASE 24 U/L (17-59); BILIRUBIN,DIRECT 0.3 mg/dL (0.0-0.4); BILIRUBIN,TOTAL 0.8 mg/dL (0.2-1.3); BLOOD UREA NITROGEN 27 mg/dL (7-20); CARBON DIOXIDE 29 mmol/L (22-30); CHLORIDE 101 mmol/L (98-107); GLUCOSE 91 mg/dL (75-110); POTASSIUM 4.4 mmol/L (3.6-5.0); SODIUM 144.2 mmol/L (137-145)
== END ==
LOC: OD 13:51
PROVIDERS: ATTEND Internal Medicine Cardiovascular Disease
DX: I48.2 Chronic atrial fibrillation (principal); Z79.01 Long term (current) use of anticoagulants; Z79.899 Other long term (current) drug therapy
CPT/HCPCS: 36415; 80048; 80076; 81001; 82272; 85027; 85730

== ENCOUNTER → 2018-04-04 | Outpatient (CLI) | payer MEDICARE, BC ==
[2018-04-04 10:06] LABS: ABSOLUTE EOSINOPHILS # (AUTO) 0.2 10^3/uL (0.0-0.6); ABSOLUTE LYMPHOCYTES (AUTO) 0.7 10^3/uL (0.5-4.7); ABSOLUTE MONOCYTES (AUTO) 0.8 10^3/uL (0.1-1.4); ABSOLUTE NEUT (AUTO) 3.6 10^3/uL (1.7-8.2); BASOPHILS % (AUTO) 0.8 % (0-2); EOSINOPHILS % (AUTO) 3.4 % (0-6); HEMATOCRIT 35.5 % (37.9-51.0); HEMOGLOBIN 12.5 g/dL (13.5-17.0); LYMPHOCYTES % (AUTO) 13.7 % (13-45); MEAN CORPUSCULAR HEMOGLOBIN 34.6 pg (27.0-33.4); MEAN CORPUSCULAR VOLUME 99 fl (80-97); MONOCYTES % (AUTO) 14.7 % (3-13); PLATELET COUNT 160 10^3/uL (150-450); RED CELL DISTRIBUTION WIDTH 13.9 % (11.5-14.0); SEGMENTED NEUTROPHILS % (AUTO) 67.4 % (42-78); TOTAL CELLS COUNTED % (AUTO) 100 %; WHITE BLOOD COUNT 5.3 10^3/uL (4.0-10.5)
[2018-04-04 10:24] LABS: ALANINE AMINOTRANSFERASE 23 U/L (21-72); ALBUMIN 4.3 g/dL (3.5-5.0); ALKALINE PHOSPHATASE 76 U/L (38-126); ANION GAP 14 (5-19); ASPARTATE AMINO TRANSFERASE 21 U/L (17-59); BILIRUBIN,DIRECT 0.3 mg/dL (0.0-0.4); BLOOD UREA NITROGEN 35 mg/dL (7-20); CALCIUM 9.8 mg/dL (8.4-10.2); CARBON DIOXIDE 27 mmol/L (22-30); CHLORIDE 102 mmol/L (98-107); CHOLESTEROL 126.13 mg/dL (0-200); GLUCOSE 90 mg/dL (75-110); POTASSIUM 4.3 mmol/L (3.6-5.0); SODIUM 143.3 mmol/L (137-145); TOTAL PROTEIN 7.7 g/dL (6.3-8.2); TRIGLYCERIDES 144 mg/dL (<150)
[2018-04-04 10:35] LABS: DIRECT LDL 53 mg/dL (<100)
== END ==
LOC: OD 08:58
PROVIDERS: ATTEND Internal Medicine Nephrology
DX: E78.2 Mixed hyperlipidemia (principal); D64.9 Anemia, unspecified; I10 Essential (primary) hypertension
CPT/HCPCS: 36415; 80053; 80061; 85025

== ENCOUNTER 2018-04-25 22:52 | Emergency (ER) | payer MEDICARE, BC ==
[2018-04-26] MEDS ORDERED: MECLIZINE HCL 12.5 MG TABLET PO ONE (01:07)
[2018-04-26 01:56] LABS: APPEARANCE,URINE CLEAR; BILIRUBIN,URINE NEGATIVE (NEGATIVE); COLOR,URINE YELLOW; GLUCOSE, URINE NEGATIVE (NEGATIVE); KETONES,URINE NEGATIVE (NEGATIVE); LEUKOCYTE ESTERASE,URINE NEGATIVE (NEGATIVE); NITRITE,URINE NEGATIVE (NEGATIVE); PROTEIN,URINE NEGATIVE (NEGATIVE); URINE SPECIFIC GRAVITY 1.015; UROBILINOGEN,URINE NEGATIVE mg/dL (<2.0)
--- NOTE | 2018-04-26 02:20 | ER Document Report ---
ED General - General Chief Complaint: Leg Pain Stated Complaint: LEG CRAMPS Time Seen by Provider: 04/26/18 00:30 Notes: Patient is an 87-year-old male who fell twice a day. Patient was just seen in [place] a few weeks ago and saw his primary doctor today and was cleared to resume his normal activity. Patient has aortic stenosis but is not advised to have that operated on at this time after evaluation at [place] due to his comorbidities. Patient was advised to eat less salt and stop eating candy at night which she is done. No medication changes. Patient was at the store with his without his oxygen on and became lightheaded/dizzy. He fell and nearly passed out but was able to get up with assistance walk to the car put his oxygen on and was feeling fine. Patient was on at home not wearing his oxygen again and fell to the floor. Oxygen at that point was 79%. Son feels that this is what is contributing to the patient following today. Patient has not had any chest pain, increased shortness of breath, nausea. He states that he is wearing his hearing aids today for the first time and felt like he was on a boat. No presyncope or near syncope at this time. TRAVEL OUTSIDE OF THE [place] IN LAST 30 DAYS: No - Related Data Allergies/Adverse Reactions: No Known Allergies Allergy (Verified 10/18/15 13:31) Past Medical History - Social History Smoking Status: Former Smoker Family History: COPD - Past Medical History Cardiac Medical History: Reports: Hx Atrial Fibrillation, Hx Congestive Heart Failure - Diastolic dysfunction, Hx Coronary Artery Disease - CAROIDECTOMY LEFT SIDE, Hx Heart Attack, Hx Hypercholesterolemia, Hx Hypertension, Hx Peripheral Vascular Disease Pulmonary Medical History: Reports: Hx Asthma, Hx Bronchitis, Hx COPD, Hx Pneumonia, Hx Sleep Apnea - On CPAP at home Neurological Medical History: Denies: Hx Seizures Renal/ Medical History: Reports: Hx Benign Prostatic Hyperplasia. Denies: Hx Peritoneal Dialysis Malignancy Medical History: Reports Hx Skin Cancer GI Medical History: Reports: Hx Gastroesophageal Reflux Disease Musculoskeletal Medical History: Reports Hx Arthritis Psychiatric Medical History: Reports: Hx Depression Past Surgical History: Reports: Hx Cardiac Surgery - quad. bypass in 08, Hx Coronary Artery Bypass Graft, Hx Pacemaker - medtronic, Hx Vascular Surgery - Left carotid endarterectomy. Endovascular AAA repair - Immunizations Hx Diphtheria, Pertussis, Tetanus Vaccination: Yes Hx Pneumococcal Vaccination: 07/11/17 Review of Systems - Review of Systems Constitutional: No symptoms reported EENT: No symptoms reported Cardiovascular: See HPI Respiratory: No symptoms reported Gastrointestinal: No symptoms reported Genitourinary: No symptoms reported Male Genitourinary: No symptoms reported Musculoskeletal: No symptoms reported Skin: No symptoms reported Hematologic/Lymphatic: No symptoms reported Neurological/Psychological: See HPI Physical Exam - Vital signs Vitals: Temp Pulse Resp BP Pulse Ox 98.1 F 66 16 142/53 H 93 04/25/18 22:58 04/25/18 22:58 04/25/18 22:58 04/25/18 22:58 04/25/18 22:58 Interpretation: Normal - General General appearance: Appears well, Alert - HEENT Head: Normocephalic, Atraumatic Eyes: Normal Pupils: PERRL - Respiratory Respiratory status: No respiratory distress Chest status: Nontender Breath sounds: Normal Chest palpation: Normal - Cardiovascular Rhythm: Regular Murmur: Yes - c/w aortic stenosis - Abdominal Inspection: Normal Distension: No distension Bowel sounds: Normal Tenderness: Nontender Organomegaly: No organomegaly - Back Back: Normal, Nontender - Extremities General upper extremity: Nontender, Normal color, Normal ROM, Normal temperature General lower extremity: Normal inspection, Tender - L posterior lateral knee, Normal color, Normal ROM, Normal temperature, Normal weight bearing. No: José Luis' s sign - Neurological Neuro grossly intact: Yes Cognition: Normal Orientation: AAOx4 Kassandra Coma Scale Eye Opening: Spontaneous Kassandra Coma Scale Verbal: Oriented [place] Coma Scale Motor: Obeys Commands [place] Coma Scale Total: 15 Speech: Normal Motor strength normal: LUE, RUE, LLE, RLE Sensory: Normal - Psychological Associated symptoms: Normal affect, Normal mood - Skin Skin Temperature: Warm Skin Moisture: Dry Skin Color: Normal Skin irregularity: other - skin tear to R elbow, 4 cm, superficial Course - Re-evaluation Re-evalutation: 04/26/18 02:54 Patient with no further symptoms in the emergency department. Blood work within normal limits. Pacemaker has been interrogated. Discussed with [facility] stanley and no abnormalities on interrogation. 04/26/18 05:07 Patient is an 87-year-old male who comes in with 2 falls today and describes a feeling that sounds like vertigo. Head CT and chest x-ray within normal limits. Pacemaker interrogation with no acute findings. Patient has been asymptomatic.. He is not orthostatic. Blood work is at baseline. Troponin is negative. Ambulates without difficulty feels well and would like to go home.. Patient states that he will follow-up with his doctor. He is responded well to meclizine and will be discharged home with prescription for this. I do not see the need to do any further workup on this patient, admit or transfer. He has known aortic stenosis and is supposed to be medically managed. He is asymptomatic currently. He is instructed to keep his oxygen on when she has not been doing with activity and this is possibly a cause of his near syncope today as well. Patient is agreeable to this plan. Return for any worsening or concerning symptoms. Family is also agreeable to this plan. Stable for discharge. - Vital Signs Vital signs: Temp Pulse Resp BP Pulse Ox 98.1 F 67 16 135/48 H 93 04/25/18 22:58 04/26/18 04:39 04/25/18 22:58 04/26/18 04:39 04/25/18 22:58 - Laboratory Result Diagrams: 04/26/18 02:18 04/26/18 02:18 Laboratory results interpreted by me: 04/26/18 04/26/18 04/26/18 01:05 02:18 02:18 RBC 3.65 L Hgb 12.6 L Hct 35.9 L MCV 98 H MCH 34.4 H Lymphocytes % 12.9 L Monocytes % 13.1 H BUN 37 H Creatinine 1.35 H Est GFR (Non-Af Amer) 50 L Urine Ascorbic Acid 40 H - Diagnostic Test Radiology reviewed: Reports reviewed Discharge - Discharge Clinical Impression: Vertigo Contusion of leg, left Qualifiers: Encounter type: initial encounter Qualified Code(s): S80.12XA - Contusion of left lower leg, initial encounter Skin tear of elbow without complication Qualifiers: Encounter type: initial encounter Laterality: right Qualified Code(s): S51.011A - Laceration without foreign body of right elbow, initial encounter Condition: Stable Disposition: HOME, SELF-CARE Instructions: Vertigo ([facility]) Additional Instructions: Please make sure you are wearing your oxygen as instructed especially while doing activity. Prescriptions: Meclizine HCl [Antivert 12.5 mg Tablet] 12.5 mg PO TID #20 tablet Referrals: MARY ANN SIM MD [Primary Care Provider] - Follow up tomorrow Scribe Attestation: 04/26/18 05:09 I personally performed the services described in the documentation, reviewed and edited the documentation which was dictated to the scribe in my presence, and it accurately records my words and actions.
[2018-04-26 02:33] LABS: ABSOLUTE EOSINOPHILS # (AUTO) 0.1 10^3/uL (0.0-0.6); ABSOLUTE LYMPHOCYTES (AUTO) 0.9 10^3/uL (0.5-4.7); ABSOLUTE MONOCYTES (AUTO) 0.9 10^3/uL (0.1-1.4); ABSOLUTE NEUT (AUTO) 4.9 10^3/uL (1.7-8.2); BASOPHILS % (AUTO) 0.6 % (0-2); EOSINOPHILS % (AUTO) 1.9 % (0-6); HEMATOCRIT 35.9 % (37.9-51.0); HEMOGLOBIN 12.6 g/dL (13.5-17.0); LYMPHOCYTES % (AUTO) 12.9 % (13-45); MEAN CORPUSCULAR HEMOGLOBIN 34.4 pg (27.0-33.4); MEAN CORPUSCULAR VOLUME 98 fl (80-97); MONOCYTES % (AUTO) 13.1 % (3-13); PLATELET COUNT 150 10^3/uL (150-450); RED BLOOD COUNT 3.65 10^6/uL (4.35-5.55); RED CELL DISTRIBUTION WIDTH 13.5 % (11.5-14.0); SEGMENTED NEUTROPHILS % (AUTO) 71.5 % (42-78); TOTAL CELLS COUNTED % (AUTO) 100 %; WHITE BLOOD COUNT 6.9 10^3/uL (4.0-10.5)
[2018-04-26 02:50] LABS: ALANINE AMINOTRANSFERASE 25 U/L (21-72); ALKALINE PHOSPHATASE 76 U/L (38-126); ANION GAP 13 (5-19); ASPARTATE AMINO TRANSFERASE 21 U/L (17-59); BILIRUBIN,DIRECT 0.3 mg/dL (0.0-0.4); BILIRUBIN,TOTAL 0.5 mg/dL (0.2-1.3); BLOOD UREA NITROGEN 37 mg/dL (7-20); CALCIUM 9.6 mg/dL (8.4-10.2); CARBON DIOXIDE 26 mmol/L (22-30); CHLORIDE 103 mmol/L (98-107); GLUCOSE 99 mg/dL (75-110); PHOSPHORUS 4.1 mg/dL (2.5-4.5); POTASSIUM 4.2 mmol/L (3.6-5.0); SODIUM 142.2 mmol/L (137-145); TOTAL PROTEIN 7.7 g/dL (6.3-8.2)
[2018-04-26] MEDS ORDERED: NORMAL SALINE 500 ML IV ONE (02:50)
[2018-04-26] MEDS ORDERED: MECLIZINE HCL 12.5 MG TABLET ONE (02:54)
--- NOTE | 2018-04-26 02:58 | RADIOLOGY REPORT (SQ) ---
EXAM DESCRIPTION: CT HEAD WITHOUT IV CONTRAST COMPLETED DATE/TME: 04/26/2018 01:06 CLINICAL HISTORY: 87 years Male, fall, anticoagulated, hit head COMPARISON: None. TECHNIQUE: No contrast. Coronal and sagittal reformat. This exam was performed according to our departmental dose-optimization program, which includes automated exposure control, adjustment of the mA and/or kV according to patient size and/or use of iterative reconstruction technique. FINDINGS: No hemorrhage or infarct. No mass, mass effect, or midline shift. Atherosclerosis, moderate occlusion of the right maxilla sinus with high attenuation components mild white matter microangiopathy. Brain and extra-axial structures appear otherwise intact. 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
--- NOTE | 2018-04-26 03:10 | RADIOLOGY REPORT (SQ) ---
EXAM DESCRIPTION: XR CHEST 2 VIEWS COMPLETED DATE/TME: 04/26/2018 01:06 CLINICAL HISTORY: 87 years, Male, fall, anticoagulated, hit head COMPARISON: None. NUMBER OF VIEWS: Two TECHNIQUE: Two views of the chest LIMITATIONS: None. FINDINGS: There is pulmonary vascular congestion. The heart is enlarged with a left chest wall pacemaker in place. There is no pneumothorax or pleural effusion. The bones are demineralized. IMPRESSION: Pulmonary vascular congestion 2010 [employer]- All Rights Reserved
[2018-04-26 05:05] VITALS: BP 173/63
--- NOTE | 2018-04-26 07:50 | EKG REPORT ---
SEVERITY:- ABNORMAL ECG - VENTRICULAR-PACED COMPLEXES,BASELINE ATRIAL FIBRILLATION NONDIAGNOSTIC QRS. : Confirmed by: Suman Elizabeth MD 26-Apr-2018 07:49:44
--- NOTE | 2018-04-26 12:33 | EKG REPORT ---
SEVERITY:- ABNORMAL ECG - VENTRICULAR-PACED COMPLEXES,BASELINE A FIBRILLATION. IVCD, CONSIDER ATYPICAL RBBB LVH WITH IVCD, LAD AND SECONDARY REPOL ABNRM : Confirmed by: Suman Elizabeth MD 26-Apr-2018 12:32:53
== END 2018-04-26 05:15 | disposition home or self-care (01) ==
LOC: ER 22:52
DX: S80.12XA Contusion of left lower leg, initial encounter (principal); S51.011A Laceration without foreign body of right elbow, initial encounter; R42 Dizziness and giddiness; M79.606 Pain in leg, unspecified; R25.2 Cramp and spasm; X58.XXXA Exposure to other specified factors, initial encounter; Z87.891 Personal history of nicotine dependence; I25.10 Atherosclerotic heart disease of native coronary artery without angina pectoris; I10 Essential (primary) hypertension; J44.9 Chronic obstructive pulmonary disease, unspecified
CPT/HCPCS: 93005; 99284; 36415; 83735; 84100; 85025; 80053; 81001; 84484; 71046; 70450; 93010; A9270; J7040; J3490

== ENCOUNTER → 2018-06-20 | Outpatient (CLI) | payer MEDICARE, BC ==
[2018-06-20 10:03] LABS: APPEARANCE,URINE CLEAR; BILIRUBIN,URINE NEGATIVE (NEGATIVE); COLOR,URINE YELLOW; GLUCOSE, URINE NEGATIVE (NEGATIVE); KETONES,URINE NEGATIVE (NEGATIVE); LEUKOCYTE ESTERASE,URINE NEGATIVE (NEGATIVE); NITRITE,URINE NEGATIVE (NEGATIVE); PROTEIN,URINE NEGATIVE (NEGATIVE); UROBILINOGEN,URINE NEGATIVE mg/dL (<2.0)
[2018-06-20 10:08] LABS: URINE SPECIFIC GRAVITY 1.012
[2018-06-20 10:15] LABS: HEMATOCRIT 33.1 % (37.9-51.0); MEAN CORPUSCULAR HEMOGLOBIN 35.4 pg (27.0-33.4); MEAN CORPUSCULAR HGB CONC 36.2 g/dL (32.0-36.0); MEAN CORPUSCULAR VOLUME 98 fl (80-97); PLATELET COUNT 143 10^3/uL (150-450); RED BLOOD COUNT 3.38 10^6/uL (4.35-5.55); RED CELL DISTRIBUTION WIDTH 13.6 % (11.5-14.0); WHITE BLOOD COUNT 5.5 10^3/uL (4.0-10.5)
[2018-06-20 10:42] LABS: GLUCOSE 98 mg/dL (75-110); POTASSIUM 4.3 mmol/L (3.6-5.0); TOTAL PROTEIN 7.4 g/dL (6.3-8.2)
[2018-06-20 10:44] LABS: ALANINE AMINOTRANSFERASE 20 U/L (21-72); ALKALINE PHOSPHATASE 72 U/L (38-126); ANION GAP 10 (5-19); ASPARTATE AMINO TRANSFERASE 22 U/L (17-59); BILIRUBIN,DIRECT 0.2 mg/dL (0.0-0.4); BILIRUBIN,TOTAL 0.8 mg/dL (0.2-1.3); BLOOD UREA NITROGEN 44 mg/dL (7-20); CALCIUM 9.6 mg/dL (8.4-10.2); CARBON DIOXIDE 26 mmol/L (22-30); CHLORIDE 105 mmol/L (98-107); SODIUM 140.8 mmol/L (137-145)
== END ==
LOC: OD 09:17
PROVIDERS: ATTEND Internal Medicine Cardiovascular Disease
DX: I48.2 Chronic atrial fibrillation (principal); Z79.01 Long term (current) use of anticoagulants; Z79.899 Other long term (current) drug therapy
CPT/HCPCS: 36415; 80048; 80076; 81001; 82272; 85027; 85730

== ENCOUNTER → 2018-08-20 | Outpatient (CLI) | payer MEDICARE, BC | LOC: OD 13:37 | PROVIDERS: ATTEND Urology | DX: N40.0 Benign prostatic hyperplasia without lower urinary tract symptoms (principal) | CPT/HCPCS: 36415; 84153 ==

== ENCOUNTER → 2018-08-27 | Outpatient (CLI) | payer MEDICARE, BC ==
[2018-08-27 11:33] LABS: HEMATOCRIT 33.8 % (37.9-51.0); HEMOGLOBIN 11.8 g/dL (13.5-17.0); MEAN CORPUSCULAR HEMOGLOBIN 35.6 pg (27.0-33.4); MEAN CORPUSCULAR VOLUME 102 fl (80-97); PLATELET COUNT 150 10^3/uL (150-450); RED BLOOD COUNT 3.33 10^6/uL (4.35-5.55); RED CELL DISTRIBUTION WIDTH 13.6 % (11.5-14.0); WHITE BLOOD COUNT 5.4 10^3/uL (4.0-10.5)
[2018-08-27 11:36] LABS: APPEARANCE,URINE CLEAR; BILIRUBIN,URINE NEGATIVE (NEGATIVE); COLOR,URINE STRAW; GLUCOSE, URINE NEGATIVE (NEGATIVE); KETONES,URINE NEGATIVE (NEGATIVE); LEUKOCYTE ESTERASE,URINE NEGATIVE (NEGATIVE); NITRITE,URINE NEGATIVE (NEGATIVE); PROTEIN,URINE NEGATIVE (NEGATIVE); UROBILINOGEN,URINE NEGATIVE mg/dL (<2.0)
[2018-08-27 11:56] LABS: ALANINE AMINOTRANSFERASE 20 U/L (21-72); ALBUMIN 4.2 g/dL (3.5-5.0); ALKALINE PHOSPHATASE 73 U/L (38-126); ANION GAP 9 (5-19); ASPARTATE AMINO TRANSFERASE 23 U/L (17-59); BILIRUBIN,DIRECT 0.4 mg/dL (0.0-0.4); BILIRUBIN,TOTAL 0.9 mg/dL (0.2-1.3); BLOOD UREA NITROGEN 40 mg/dL (7-20); CALCIUM 9.9 mg/dL (8.4-10.2); CARBON DIOXIDE 28 mmol/L (22-30); CHLORIDE 104 mmol/L (98-107); GLUCOSE 113 mg/dL (75-110); POTASSIUM 3.8 mmol/L (3.6-5.0); SODIUM 141.3 mmol/L (137-145); TOTAL PROTEIN 7.8 g/dL (6.3-8.2)
== END ==
LOC: OD 10:43
PROVIDERS: ATTEND Internal Medicine Cardiovascular Disease
DX: I48.2 Chronic atrial fibrillation (principal); Z79.01 Long term (current) use of anticoagulants; Z79.899 Other long term (current) drug therapy
CPT/HCPCS: 36415; 80048; 80076; 81001; 82272; 85027; 85730

== ENCOUNTER 2018-09-12 14:59 | Inpatient (IN) | payer MEDICARE, BC ==
[2018-09-12] MEDS ORDERED: ASPIRIN 81 MG TABLET, CHEWABLE PO ONE (15:55)
--- NOTE | 2018-09-12 15:57 | ER Document Report ---
ED Medical Screen (RME) - General Chief Complaint: Shortness Of Breath Stated Complaint: SHORT OF BREATH,WEAKNESS Time Seen by Provider: 09/12/18 15:50 Mode of Arrival: Wheelchair Information source: Patient, Relative, [facility] Records Notes: 88-year-old male with congestive heart failure, coronary artery disease, atrial fibrillation, COPD requiring continuous oxygen on 2 L. Presents with complaint of worsening shortness of breath over the last 2 weeks. He denies cough but states he has had some chest pressure and congestion. Patient's normal oxygenation saturation is reportedly usually 90-94% but he states this morning he woke up and he was 85%. I have greeted and performed a rapid initial assessment of this patient. A comprehensive ED assessment and evaluation of the patient, analysis of test results and completion of medical decision making process we will be contacted by additional ED providers. PHYSICAL EXAMINATION: Vital signs reviewed-hypoxic GENERAL: Well-appearing, well-nourished and in no acute distress. LUNGS: No respiratory distress Musculoskeletal: Normal range of motion NEUROLOGICAL: Normal speech, normal gait. PSYCH: Normal mood, normal affect. SKIN: Warm, Dry, normal turgor, no rashes or lesions noted. TRAVEL OUTSIDE OF THE [place] IN LAST 30 DAYS: No - HPI Onset: Other Onset/Duration: Persistent Quality of pain: Pressure Severity: Mild Associated Symptoms: Chest pain, Shortness of breath Exacerbated by: Denies Relieved by: Denies Similar symptoms previously: Yes Recently seen / treated by doctor: Yes - Related Data Smoking: Non-smoker Frequency of alcohol use: None Drug Abuse: None Allergies/Adverse Reactions: No Known Allergies Allergy (Verified 09/12/18 15:10) Past Medical History - Past Medical History Cardiac Medical History: Reports: Hx Atrial Fibrillation, Hx Congestive Heart Failure - Diastolic dysfunction, Hx Coronary Artery Disease - CAROIDECTOMY LEFT SIDE, Hx Heart Attack, Hx Hypercholesterolemia, Hx Hypertension, Hx Peripheral Vascular Disease Pulmonary Medical History: Reports: Hx Asthma, Hx Bronchitis, Hx COPD, Hx Pneumonia, Hx Sleep Apnea - On CPAP at home Neurological Medical History: Denies: Hx Seizures Renal/ Medical History: Reports: Hx Benign Prostatic Hyperplasia. Denies: Hx Peritoneal Dialysis Malignancy Medical History: Reports Hx Skin Cancer GI Medical History: Reports: Hx Gastroesophageal Reflux Disease Musculoskeltal Medical History: Reports Hx Arthritis Psychiatric Medical History: Reports: Hx Depression Past Surgical History: Reports: Hx Cardiac Surgery - quad. bypass in 08, Hx Coronary Artery Bypass Graft, Hx Pacemaker - medtronic, Hx Vascular Surgery - Left carotid endarterectomy. Endovascular AAA repair - Immunizations Hx Diphtheria, Pertussis, Tetanus Vaccination: Yes History of Influenza Vaccine for 06/2017 - 11/2017 Season: Yes Influenza Administration Date for 06/2017 - 11/2017 Season: 07/11/17 Physical Exam - Vital signs Vitals: Temp Pulse Resp BP Pulse Ox 98.0 F 69 24 H 146/56 H 91 L 09/12/18 15:42 09/12/18 15:42 09/12/18 15:42 09/12/18 15:42 09/12/18 15:42 Course - Vital Signs Vital signs: Temp Pulse Resp BP Pulse Ox 98.0 F 69 24 H 146/56 H 91 L 09/12/18 15:42 09/12/18 15:42 09/12/18 15:42 09/12/18 15:42 09/12/18 15:42 Doctor's Discharge - Discharge Referrals: AMINTA HOLT MD [Primary Care Provider] - Follow up as needed
[2018-09-12 16:39] LABS: ABSOLUTE EOSINOPHILS # (AUTO) 0.1 10^3/uL (0.0-0.6); ABSOLUTE LYMPHOCYTES (AUTO) 0.6 10^3/uL (0.5-4.7); ABSOLUTE MONOCYTES (AUTO) 0.9 10^3/uL (0.1-1.4); ABSOLUTE NEUT (AUTO) 5.1 10^3/uL (1.7-8.2); BASOPHILS % (AUTO) 0.5 % (0-2); EOSINOPHILS % (AUTO) 1.6 % (0-6); HEMATOCRIT 32.5 % (37.9-51.0); HEMOGLOBIN 11.1 g/dL (13.5-17.0); LYMPHOCYTES % (AUTO) 8.6 % (13-45); MEAN CORPUSCULAR HEMOGLOBIN 34.7 pg (27.0-33.4); MEAN CORPUSCULAR HGB CONC 34.2 g/dL (32.0-36.0); MEAN CORPUSCULAR VOLUME 101 fl (80-97); MONOCYTES % (AUTO) 13.4 % (3-13); PLATELET COUNT 171 10^3/uL (150-450); RED CELL DISTRIBUTION WIDTH 13.6 % (11.5-14.0); SEGMENTED NEUTROPHILS % (AUTO) 75.9 % (42-78); TOTAL CELLS COUNTED % (AUTO) 100 %; WHITE BLOOD COUNT 6.7 10^3/uL (4.0-10.5)
--- NOTE | 2018-09-12 16:40 | RADIOLOGY REPORT (SQ) ---
EXAM DESCRIPTION: CHEST 2 VIEWS COMPLETED DATE/TIME: 09/12/2018 4:28 pm REASON FOR STUDY: sob COMPARISON: 12/11/2015 TECHNIQUE: Frontal and lateral radiographic views of the chest acquired. NUMBER OF VIEWS: Two view. LIMITATIONS: None. FINDINGS: LUNGS AND PLEURA: Chronic or recurrent vascular congestion and interstitial prominence. S mall effusions. MEDIASTINUM AND HILAR STRUCTURES: Stable postoperative contours, status post CABG. HEART AND VASCULAR STRUCTURES: Cardiomegaly. BONES: Osteopenic. HARDWARE: Left transvenous pacer. OTHER: No other significant finding. IMPRESSION: Cardiomegaly with vascular congestion, similar appearance compared to prior. Chronic ve rsus recurrent. TECHNICAL DOCUMENTATION: JOB ID: [id number] [employer]- All Rights Reserved Reading location - IP/workstation name: [email or web address]
[2018-09-12 16:54] LABS: ALANINE AMINOTRANSFERASE 19 U/L (21-72); ALBUMIN 4.1 g/dL (3.5-5.0); ALKALINE PHOSPHATASE 96 U/L (38-126); ANION GAP 8 (5-19); ASPARTATE AMINO TRANSFERASE 29 U/L (17-59); BILIRUBIN,DIRECT 0.4 mg/dL (0.0-0.4); BILIRUBIN,TOTAL 1.1 mg/dL (0.2-1.3); BLOOD UREA NITROGEN 28 mg/dL (7-20); CALCIUM 9.6 mg/dL (8.4-10.2); CARBON DIOXIDE 30 mmol/L (22-30); CHLORIDE 104 mmol/L (98-107); CREATINE KINASE 30 U/L (55-170); GLUCOSE 131 mg/dL (75-110); POTASSIUM 3.3 mmol/L (3.6-5.0); SODIUM 142.2 mmol/L (137-145); TOTAL PROTEIN 7.9 g/dL (6.3-8.2)
[2018-09-12 17:06] LABS: CREATINE KINASE MB 1.27 ng/mL (<4.55); TROPONIN I 0.017 ng/mL
--- NOTE | 2018-09-12 17:25 | EKG REPORT ---
SEVERITY:- ABNORMAL ECG - VENTRICULAR-PACED COMPLEXES NONSPECIFIC IVCD WITH LAD : Confirmed by: January James MD 12-Sep-2018 17:24:01
--- NOTE | 2018-09-12 18:11 | ER Document Report ---
ED Respiratory Problem - General Chief Complaint: Shortness Of Breath Stated Complaint: SHORT OF BREATH,WEAKNESS Time Seen by Provider: 09/12/18 18:11 Mode of Arrival: Wheelchair Information source: Patient Notes: Patient is an 88-year-old male with a history of CHF, atrial fibrillation status post pacemaker placement, and COPD on 2 L of home oxygen at all times who presents with 2 weeks of worsening shortness of breath. Patient reports that symptoms began slowly, have increased to the level at which he has labored breathing with any exertion, also reports chest tightness with a nonproductive cough. Patient denies recent fevers or chills, no nausea or vomiting, no abdominal pain but does note increased abdominal swelling recently. Patient also reports increased swelling in his lower extremities; he reports no change in his Bumex, although he does take more as needed. TRAVEL OUTSIDE OF THE [place] IN LAST 30 DAYS: No - HPI Patient complains to provider of: Short of breath Onset: Other - 2 weeks ago Duration: Continuous Quality of pain: No pain Severity: Moderate Pain Level: Denies Context: Hx CHF, Smoker Short of Breath: Moderate Chest pain/discomfort: Tightness Sputum amount: None Associated symptoms: Congestion, Difficulty breathing, Extertional dyspnea, Shor t of breath Similar symptoms previously: Yes Recently seen / treated by doctor: No - Related Data Allergies/Adverse Reactions: No Known Allergies Allergy (Verified 09/12/18 15:10) Past Medical History - General Information source: Patient, Relative, [facility] Records - Social History Smoking Status: Never Smoker Chew tobacco use (# tins/day): No Frequency of alcohol use: None Drug Abuse: None Lives with: Family Family History: COPD Patient has suicidal ideation: No Patient has homicidal ideation: No - Past Medical History Cardiac Medical History: Reports: Hx Atrial Fibrillation, Hx Congestive Heart Failure - Diastolic dysfunction, Hx Coronary Artery Disease - CAROIDECTOMY LEFT SIDE, Hx Heart Attack, Hx Hypercholesterolemia, Hx Hypertension, Hx Peripheral Vascular Disease Pulmonary Medical History: Reports: Hx Asthma, Hx Bronchitis, Hx COPD, Hx Pneumonia, Hx Sleep Apnea - On CPAP at home EENT Medical History: Reports: None Neurological Medical History: Reports: None. Denies: Hx Seizures Endocrine Medical History: Reports: None Renal/ Medical History: Reports: Hx Benign Prostatic Hyperplasia. Denies: Hx Peritoneal Dialysis Malignancy Medical History: Reports Hx Skin Cancer GI Medical History: Reports: Hx Gastroesophageal Reflux Disease Musculoskeletal Medical History: Reports Hx Arthritis Skin Medical History: Reports None Psychiatric Medical History: Reports: Hx Depression Traumatic Medical History: Reports: None Infectious Medical History: Reports: None Past Surgical History: Reports: Hx Cardiac Surgery - quad. bypass in 08, Hx Coronary Artery Bypass Graft, Hx Pacemaker - medtronic, Hx Vascular Surgery - Left carotid endarterectomy. Endovascular AAA repair - Immunizations Immunizations up to date: Yes Hx Diphtheria, Pertussis, Tetanus Vaccination: Yes History of Influenza Vaccine for 06/2017 - 11/2017 Season: Yes History of Pneumococcal Vaccine: Yes Hx Pneumococcal Vaccination: 07/11/17 Review of Systems - Review of Systems Constitutional: See HPI, Weakness EENT: No symptoms reported Cardiovascular: See HPI, Dyspnea, Edema Respiratory: See HPI, Cough, Short of breath Gastrointestinal: See HPI, Abdomen distended Genitourinary: No symptoms reported Male Genitourinary: No symptoms reported Musculoskeletal: No symptoms reported Skin: No symptoms reported Hematologic/Lymphatic: No symptoms reported Neurological/Psychological: No symptoms reported -: Yes All other systems reviewed and negative Physical Exam - Vital signs Vitals: Temp Pulse Resp BP Pulse Ox 98.0 F 69 24 H 146/56 H 91 L 09/12/18 15:42 09/12/18 15:42 09/12/18 15:42 09/12/18 15:42 09/12/18 15:42 Interpretation: Normal - Notes Notes: Well-appearing in no acute distress - General General appearance: Appears well, Alert - HEENT Head: Normocephalic, Atraumatic Eyes: Normal Pupils: PERRL - Respiratory Respiratory status: Respiratory distress - Mild, Tachypnea Chest status: Nontender Breath sounds: Decreased air movement, Nonproductive cough, Rales. No: Rhonchi, Wheezing Chest palpation: Normal - Cardiovascular Rhythm: Regular Heart sounds: Normal auscultation Murmur: No - Abdominal Inspection: Normal Distension: No distension Bowel sounds: Normal Tenderness: Nontender Organomegaly: No organomegaly - Rectal Notes: Deferred - Genitourinary Notes: Deferred - Back Back: Normal, Nontender - Extremities General upper extremity: Normal inspection, Nontender, Normal color, Normal ROM, Normal temperature General lower extremity: Nontender, Normal color, Normal ROM, Normal temperature, Normal weight bearing, Other - 3+ pitting edema that is equal and symmetric bilaterally. No: José Luis's sign - Neurological Neuro grossly intact: Yes Cognition: Normal Orientation: AAOx4 [place] Coma Scale Eye Opening: Spontaneous [place] Coma Scale Verbal: Oriented [place] Coma Scale Motor: Obeys Commands [place] Coma Scale Total: 15 Speech: Normal Motor strength normal: LUE, RUE, LLE, RLE Sensory: Normal - Psychological Associated symptoms: Normal affect, Normal mood - Skin Skin Temperature: Warm Skin Moisture: Dry Skin Color: Normal Course - Re-evaluation Re-evalutation: 09/12/18 19:59 Patient clinically is fluid overloaded, consistent with his prior history of congestive heart failure. Initial chest x-ray shows increased vascular congestion, BNP is elevated. Patient will be given IV Lasix 80 mg. Will obtain arterial blood gas, CT scan of the abdomen/pelvis, and patient will be admitted to the hospital. 09/12/18 22:44 CT scan is negative for acute pathology. Patient will be admitted to the [facility]. - Vital Signs Vital signs: Temp Pulse Resp BP Pulse Ox 98.0 F 69 23 H 185/71 H 93 09/12/18 15:42 09/12/18 15:42 09/12/18 21:01 09/12/18 21:01 09/12/18 21:01 - Laboratory Result Diagrams: 09/12/18 16:05 09/12/18 16:05 Laboratory results interpreted by me: 09/12/18 09/12/18 09/12/18 16:05 16:05 16:05 RBC 3.20 L Hgb 11.1 L Hct 32.5 L MCV 101 H MCH 34.7 H Lymphocytes % 8.6 L Monocytes % 13.4 H ABG pO2 ABG HCO3 ABG Total CO2 Potassium 3.3 L BUN 28 H Creatinine 1.31 H Est GFR (Non-Af Amer) 52 L Glucose 131 H ALT 19 L Creatine Kinase 30 L NT-Pro-B Natriuret Pep 3790 H 09/12/18 19:33 RBC Hgb Hct MCV MCH Lymphocytes % Monocytes % ABG pO2 74.1 L ABG HCO3 27.9 H ABG Total CO2 29.2 H Potassium BUN Creatinine Est GFR (Non-Af Amer) Glucose ALT Creatine Kinase NT-Pro-B Natriuret Pep - Diagnostic Test Radiology reviewed: Reports reviewed - EKG Interpretation by Me Rate: Normal Rhythm: Other - Ventricular paced P Waves: No: DANA, LAE, Absent, AV Dissociation, Other Heart block present: No: 1st Degree, Mobitz 1, Mobitz 2, CHB (3rd degree block) When compared to previous EKG there are: No significant change - Consults Dr. Price Time consulted: 22:45 - will admit Consulted provider: will come to ER Discharge - Discharge Clinical Impression: Shortness of breath, Hypoxemia Acute exacerbation of CHF (congestive heart failure) Qualifiers: Heart failure type: unspecified Qualified Code(s): I50.9 - Heart failure, unspecified Chest pain Qualifiers: Chest pain type: unspecified Qualified Code(s): R07.9 - Chest pain, unspecified Condition: Stable Disposition: ADMITTED INPATIENT Admitting Provider: Hospitalist Unit Admitted: Telemetry Referrals: AMINTA HOLT MD [EMERITUS] - Follow up as needed
[2018-09-12] MEDS ORDERED: FUROSEMIDE INJ/PF 40 MG/4 ML SDV IV ONE (19:33)
[2018-09-12 20:06] LABS: ARTERIAL BLOOD BASE EXCESS 3.5 mmol/L; ARTERIAL BLOOD FIO2 ROOM AIR; ARTERIAL BLOOD H2CO3 1.25 mmol/L (1.05-1.35); ARTERIAL BLOOD HCO3 27.9 mmol/L (20-24); ARTERIAL BLOOD O2 SATURATION 95.4 % (94-98); ARTERIAL BLOOD PCO2 41.6 mmHg (35-45); ARTERIAL BLOOD PH 7.44 (7.35-7.45); ARTERIAL BLOOD PO2 74.1 mmHg (80-100); ARTERIAL BLOOD TOTAL CO2 29.2 mmol/L (23-27)
--- NOTE | 2018-09-12 21:22 | RADIOLOGY REPORT (SQ) ---
CT ABDOMEN PELVIS WITH IV CONTRAST HISTORY: Abdominal swelling. COMPARISON: None. TECHNIQUE: CT scan of the abdomen and pelvis with IV contrast. This exam was performed according to our departmental dose-optimization program, which includes automated exposure control, adjustment of the mA and/or kV according to patient size and/or use of iterative reconstruction technique. FINDINGS: There are small bilateral pleural effusions. No pericardial effusion is seen. There is mild hepatic steatosis. Multiple calcifications are seen in the spleen. The pancreas is unremarkable. There are gallstones with surrounding stranding although the gallbladder is contracted. There is a fat containing adenoma in the left adrenal gland measuring 1.3 cm. The right adrenal gland is normal. The kidneys are symmetric without hydronephrosis. No ureteral or bladder stones are seen. No small bowel obstruction. The appendix is unremarkable. There are scattered colonic diverticula without surrounding inflammatory changes. The infrarenal aorta measures 2.6 cm and contains multiple stents which extend into the proximal bilateral common iliac arteries. There are no suspicious osseous lesions identified. IMPRESSION: 1. Gallstones with mild surrounding stranding although the gallbladder is contracted. Consider ultrasound for complete evaluation if clinically indicated. 2. Stable infrarenal abdominal aortic aneurysm status post stenting. 3. Diverticulosis without inflammatory changes.
[2018-09-12] MEDS ORDERED: ACETAMINOPHEN 325 MG TABLET PO PRN (22:37)
[2018-09-12] MEDS ORDERED: MAG HYDROX/AL HYDROX/SIMETH SUSP 30 ML UDCUP PO PRN (22:37)
[2018-09-12] MEDS ORDERED: POTASSIUM CHLORIDE 10 MEQ CAPSULE.ER PO ONE (22:39)
[2018-09-12] MEDS ORDERED: APIXABAN 2.5 MG TABLET PO ONE (23:00)
[2018-09-12] MEDS ORDERED: NITROGLYCERIN 5 MG (0.2 MG/HR) PATCH.TD24 TD ONE (23:46)
[2018-09-13] MEDS ORDERED: POTASSIUM CHLORIDE 10 MEQ CAPSULE.ER PO ONE ×2 (01:00→20:00)
[2018-09-13] MEDS ORDERED: HYDRALAZINE HCL INJ/PF 20 MG/1 ML SDV IV PRN (01:06)
[2018-09-13] MEDS ORDERED: APIXABAN 2.5 MG TABLET ONE (01:11)
[2018-09-13] MEDS: POTASSI CL 20 MEQ/50 ML RIDER 20 MEQ/50 ML RTUPB IV SCH ×2 (01:40→03:21)
[2018-09-13 03:13] LABS: HEMATOCRIT 32.7 % (37.9-51.0); HEMOGLOBIN 11.5 g/dL (13.5-17.0); MEAN CORPUSCULAR HGB CONC 35.1 g/dL (32.0-36.0); MEAN CORPUSCULAR VOLUME 100 fl (80-97); PLATELET COUNT 156 10^3/uL (150-450); RED BLOOD COUNT 3.29 10^6/uL (4.35-5.55); RED CELL DISTRIBUTION WIDTH 13.7 % (11.5-14.0); WHITE BLOOD COUNT 9.5 10^3/uL (4.0-10.5)
[2018-09-13 03:24] LABS: ANION GAP 12 (5-19); BLOOD UREA NITROGEN 28 mg/dL (7-20); CALCIUM 9.5 mg/dL (8.4-10.2); CARBON DIOXIDE 27 mmol/L (22-30); CHLORIDE 105 mmol/L (98-107); CREATINE KINASE 32 U/L (55-170); GLUCOSE 131 mg/dL (75-110); POTASSIUM 3.8 mmol/L (3.6-5.0); SODIUM 143.8 mmol/L (137-145)
[2018-09-13 03:29] LABS: ABSOLUTE LYMPHOCYTES# (MANUAL) 0.4 10^3/uL (0.5-4.7); ABSOLUTE MONOCYTES # (MANUAL) 0.8 10^3/uL (0.1-1.4); ABSOLUTE NEUTROPHILS# (MANUAL) 8.4 10^3/uL (1.7-8.2); BASOPHILS % (MANUAL) 0 % (0-2); EOSINOPHILS % (MANUAL) 0 % (0-6); LYMPHOCYTES % (MANUAL) 4 % (13-45); MONOCYTES % (MANUAL) 8 % (3-13); SEGMENTED NEUTROPHILS % (MAN) 88 % (42-78); TOTAL CELLS COUNTED 100
[2018-09-13 03:30] LABS: ANISOCYTOSIS SLIGHT; PLATELET COMMENT ADEQUATE; PLATELET GIANT PRESENT; POIKILOCYTOSIS SLIGHT; POLYCHROMASIA SLIGHT; SCHISTOCYTES SLIGHT; TEAR DROP CELLS 1+; TOXIC GRANULATION 1+
[2018-09-13 03:35] LABS: CREATINE KINASE MB 1.13 ng/mL (<4.55); TROPONIN I 0.042 ng/mL
--- NOTE | 2018-09-13 06:41 | PDOC H&P ---
History of Present Illness Admission Date/PCP: 09/12/18 22:44 Patient complains of: Shortness of breath History of Present Illness: ZAHIRA ROLLINS SR is a 88 year old male with a past medical history of congestive heart failure, atrial fibrillation, status post pacemaker, COPD with home oxygen dependence, obstructive sleep apnea and BPH. Patient presents with increasing shortness of breath associated with orthopnea and lower extremity edema over the last 2 weeks prompting evaluation in the emergency room where he was found to have a exacerbation of heart failure with pulmonary vascular congestion, BNP of 3700 and hypo-kalemia. He is ordered 80 mg of Lasix IV and referred to the hospitalist for admission. Patient denies chest pain palpitations nausea or vomiting. Admits compliance with medication and BiPAP however he denies recent change of medications but is also unaware of any dietary or fluid restrictions. Past Medical History Cardiac Medical History: Reports: Atrial Fibrillation, Congestive Heart Failure - Diastolic dysfunction, Coronary Artery Disease - CAROIDECTOMY LEFT SIDE, Myocardial Infarction, Hyperlipidema, Hypertension, Peripheral Vascular Disease Pulmonary Medical History: Reports: Asthma, Bronchitis, Chronic Obstructive Pulmonary Disease (COPD), Pneumonia, Sleep Apnea - On CPAP at home EENT Medical History: Reports: None Neurological Medical History: Reports: None Denies: Seizures Endocrine Medical History: Reports: None Malignancy Medical History: Reports: Skin Cancer GI Medical History: Reports: Gastroesophageal Reflux Disease Musculoskeltal Medical History: Reports: Arthritis Skin Medical History: Reports: None Psychiatric Medical History: Reports: Depression Traumatic Medical History: Reports: None Hematology: Reports: Anemia Infectious Medical History: Reports: None Past Surgical History Past Surgical History: Reports: Coronary Artery Bypass Graft, Pacemaker - medtronic, Vascular Surgery - Left carotid endarterectomy. Endovascular AAA repair Social History Information Source: Patient Lives with: Family Smoking Status: Former Smoker Frequency of Alcohol Use: None Hx Recreational Drug Use: No Drugs: None Hx Prescription Drug Abuse: No - Advance Directive Resuscitation Status: Full Code Family History Family History: COPD Parental Family History Reviewed: Yes Children Family History Reviewed: Yes Sibling(s) Family History Reviewed.: Yes Medication/Allergy Home Medications: Apixaban [Eliquis 2.5 mg Tablet] 2.5 mg PO Q12 08/05/17 Bumetanide [Bumex 1 mg Tablet] 1 mg PO BID 08/05/17 Cholecalciferol (Vitamin D3) [Vitamin D3 2000 unit Tablet] 2,000 unit PO DAILY 08/05/17 Clopidogrel Bisulfate [Plavix 75 mg Tablet] 75 mg PO DAILY 08/05/17 Cyanocobalamin (Vitamin B-12) [Vitamin B-12] 1,000 mcg PO DAILY 08/05/17 Diazepam [Valium 5 mg Tablet] 5 mg PO DAILY 08/05/17 Eplerenone [Inspra] 50 mg PO DAILY 08/05/17 Escitalopram Oxalate [Lexapro 10 mg Tablet] 10 mg PO DAILY 08/05/17 Finasteride [Proscar 5 mg Tablet] 5 mg PO DAILY 08/05/17 Losartan Potassium [Cozaar 100 mg Tablet] 100 mg PO DAILY 08/05/17 Montelukast Sodium [Singulair 10 mg Tablet] 10 mg PO QHS 08/05/17 Multivitamin [Tab-A-Jerome (Multiple Vitamin) Tablet] 1 tab PO DAILY 08/05/17 Nitroglycerin [Nitrostat 0.4 mg (1/150 Gr) Tabs 25/Bottle] 1 tab SL Q5MP PRN 08/05/17 Clint-3/Dha/Epa/Fish Oil [Fish Oil 1,000 mg Softgel] 1,000 mg PO DAILY 08/05/17 Omeprazole 40 mg PO DAILY 08/05/17 Simvastatin [Zocor 20 mg Tablet] 20 mg PO QHS 08/05/17 Tamsulosin HCl [Flomax 0.4 mg Cap.sr] 0.4 mg PO DAILY 08/05/17 Vitamin E Acetate [Vitamin E] 400 unit PO DAILY 08/05/17 Fluticasone Propionate [Flonase Nasal [place] 50 Mcg/[place] 16 gm] 2 spray NASL Q12 spray.pump 08/09/17 Guaifenesin [Mucinex Sr 600 mg Tablet.sa] 1,200 mg PO Q12 #14 tablet.sa 08/09/17 Levofloxacin [Levaquin 750 mg Tablet] 750 mg PO DAILY #5 tablet 08/09/17 Metoprolol Succinate [Toprol Xl 25 mg Tab.sr] 25 mg PO DAILY tab.sr.24h 08/09/17 Prednisone 20 mg PO ASDIR PRN #15 tablet 08/09/17 Meclizine HCl [Antivert 12.5 mg Tablet] 12.5 mg PO TID #20 tablet 04/26/18 Allergies/Adverse Reactions: No Known Allergies Allergy (Verified 09/12/18 15:10) Review of Systems Constitutional: PRESENT: as per HPI, fatigue, weight gain. ABSENT: fever(s), headache(s), night sweats, weakness Eyes: ABSENT: visual disturbances Ears: ABSENT: hearing changes Cardiovascular: PRESENT: dyspnea on exertion, orthropnea. ABSENT: chest pain, palpitations Respiratory: PRESENT: dyspnea. ABSENT: cough, hemoptysis Gastrointestinal: ABSENT: abdominal pain, constipation, diarrhea, hematemesis, hematochezia, nausea, vomiting Genitourinary: ABSENT: dysuria, hematuria Musculoskeletal: ABSENT: joint swelling Integumentary: ABSENT: rash, wounds Neurological: ABSENT: abnormal gait, abnormal speech, confusion, dizziness, focal weakness, syncope Psychiatric: ABSENT: anxiety, depression, homidical ideation, suicidal ideation Endocrine: ABSENT: cold intolerance, heat intolerance, polydipsia, polyuria Hematologic/Lymphatic: ABSENT: easy bleeding, easy bruising Physical Exam Vital Signs: Temp Pulse Resp BP Pulse Ox 98.6 F 61 19 145/52 H 95 09/13/18 02:37 09/13/18 02:37 09/13/18 02:37 09/13/18 02:37 09/13/18 02:37 Intake & Output 09/11/18 09/12/18 09/13/18 11:59 11:59 11:59 Intake Total 362 Output Total 475 Balance -113 Weight 90 kg General appearance: PRESENT: cooperative, mild distress, obese. ABSENT: disheveled Head exam: PRESENT: atraumatic, normocephalic Eye exam: PRESENT: conjunctiva pink, EOMI, PERRLA. ABSENT: scleral icterus Ear exam: PRESENT: normal external ear exam Mouth exam: PRESENT: moist, tongue midline Neck exam: ABSENT: carotid bruit, JVD, lymphadenopathy, thyromegaly Respiratory exam: PRESENT: accessory muscle use, crackles, decreased breath sounds, tachypnea. ABSENT: rales, rhonchi, wheezes Cardiovascular exam: PRESENT: RRR. ABSENT: diastolic murmur, rubs, systolic murmur Pulses: PRESENT: normal dorsalis pedis pul Vascular exam: PRESENT: normal capillary refill GI/Abdominal exam: PRESENT: normal bowel sounds, soft. ABSENT: distended, guarding, mass, organolmegaly, rebound, tenderness Rectal exam: PRESENT: deferred Extremities exam: PRESENT: full ROM, +1 edema. ABSENT: calf tenderness, clubbing Neurological exam: PRESENT: alert, awake, oriented to person, oriented to place, oriented to time, oriented to situation, CN II-XII grossly intact. ABSENT: motor sensory deficit Psychiatric exam: PRESENT: appropriate affect, normal mood. ABSENT: homicidal ideation, suicidal ideation Skin exam: PRESENT: dry, intact, warm. ABSENT: cyanosis, rash Results Laboratory Results: 09/13/18 03:00 09/13/18 03:00 09/12/18 09/12/18 09/12/18 16:05 16:05 16:05 WBC 6.7 RBC 3.20 L Hgb 11.1 L Hct 32.5 L MCV 101 H MCH 34.7 H MCHC 34.2 RDW 13.6 Plt Count 171 Seg Neutrophils % 75.9 Lymphocytes % 8.6 L Monocytes % 13.4 H Eosinophils % 1.6 Basophils % 0.5 Absolute Neutrophils 5.1 Absolute Lymphocytes 0.6 Absolute Monocytes 0.9 Absolute Eosinophils 0.1 Absolute Basophils 0.0 Carbonic Acid HCO3/H2CO3 Ratio ABG pH ABG pCO2 ABG pO2 ABG HCO3 ABG O2 Saturation ABG Base Excess FiO2 Sodium 142.2 Potassium 3.3 L Chloride 104 Carbon Dioxide 30 Anion Gap 8 BUN 28 H Creatinine 1.31 H Est GFR ( Amer) > 60 Est GFR (Non-Af Amer) 52 L Glucose 131 H Calcium 9.6 Magnesium Total Bilirubin 1.1 AST 29 ALT 19 L Alkaline Phosphatase 96 Total Protein 7.9 Albumin 4.1 TSH 2.97 09/12/18 09/12/18 09/13/18 16:05 19:33 03:00 WBC RBC Hgb Hct MCV MCH MCHC RDW Plt Count Seg Neutrophils % Lymphocytes % Monocytes % Eosinophils % Basophils % Absolute Neutrophils Absolute Lymphocytes Absolute Monocytes Absolute Eosinophils Absolute Basophils Carbonic Acid 1.25 HCO3/H2CO3 Ratio 22:1 ABG pH 7.44 ABG pCO2 41.6 ABG pO2 74.1 L ABG HCO3 27.9 H ABG O2 Saturation 95.4 ABG Base Excess 3.5 FiO2 ROOM AIR Sodium 143.8 Potassium 3.8 Chloride 105 Carbon Dioxide 27 Anion Gap 12 BUN 28 H Creatinine 1.27 H Est GFR ( Amer) > 60 Est GFR (Non-Af Amer) 54 L Glucose 131 H Calcium 9.5 Magnesium 2.3 2.1 Total Bilirubin AST ALT Alkaline Phosphatase Total Protein Albumin TSH 09/13/18 03:00 WBC 9.5 RBC 3.29 L Hgb 11.5 L Hct 32.7 L MCV 100 H MCH 35.0 H MCHC 35.1 RDW 13.7 Plt Count 156 Seg Neutrophils % Not Reportable Lymphocytes % Not Reportable Monocytes % Not Reportable Eosinophils % Not Reportable Basophils % Not Reportable Absolute Neutrophils Not Reportable Absolute Lymphocytes Not Reportable Absolute Monocytes Not Reportable Absolute Eosinophils Not Reportable Absolute Basophils Not Reportable Carbonic Acid HCO3/H2CO3 Ratio ABG pH ABG pCO2 ABG pO2 ABG HCO3 ABG O2 Saturation ABG Base Excess FiO2 Sodium Potassium Chloride Carbon Dioxide Anion Gap BUN Creatinine Est GFR ( Amer) Est GFR (Non-Af Amer) Glucose Calcium Magnesium Total Bilirubin AST ALT Alkaline Phosphatase Total Protein Albumin TSH 09/12/18 09/12/18 09/12/18 16:05 16:05 20:55 Creatine Kinase 30 L CK-MB (CK-2) 1.27 Troponin I 0.017 0.019 NT-Pro-B Natriuret Pep 3790 H 09/13/18 09/13/18 03:00 03:00 Creatine Kinase 32 L CK-MB (CK-2) 1.13 Troponin I 0.042 NT-Pro-B Natriuret Pep Impressions: Abdomen/Pelvis CT 09/12/18 00:00 IMPRESSION: 1. Gallstones with mild surrounding stranding although the gallbladder is contracted. Consider ultrasound for complete evaluation if clinically indicated. 2. Stable infrarenal abdominal aortic aneurysm status post stenting. 3. Diverticulosis without inflammatory changes. Chest X-Ray 09/12/18 15:55 IMPRESSION: Cardiomegaly with vascular congestion, similar appearance compared to prior. Chronic versus recurrent. Assessment & Plan - Diagnosis (1) Acute exacerbation of CHF (congestive heart failure) Qualifiers: Heart failure type: unspecified Qualified Code(s): I50.9 - Heart failure, unspecified Is this a current diagnosis for this admission?: Yes Plan: Acutely decompensated likely secondary to uncontrolled hypertension, dietary and lifestyle discussion. IV Lasix initiated, BiPAP and fluid restriction, education ordered. Follow-up chemistry and cardiac enzymes (2) Hypokalemia Is this a current diagnosis for this admission?: Yes Plan: Secondary to loop diuretic, resume Aldactone, potassium repletion as needed (3) Shortness of breath Is this a current diagnosis for this admission?: Yes Plan: Secondary to #1, supplemental oxygen in addition to #1 (4) Hypertensive urgency Is this a current diagnosis for this admission?: Yes Plan: Outpatient regiment with hydralazine as needed, education - Time Time Spent: 50 to 70 Minutes - Inpatient Certification Medical Necessity: Need Close Monitoring Due to Risk of Patient Decompensation
[2018-09-13] MEDS: FUROSEMIDE INJ/PF 40 MG/4 ML SDV IV SCH ×2 (10:05→21:35)
[2018-09-13] MEDS: FINASTERIDE 5 MG TABLET PO SCH (10:05)
[2018-09-13] MEDS: APIXABAN 2.5 MG TABLET PO SCH ×2 (10:05→21:36)
[2018-09-13] MEDS: EPLERENONE 25 MG TABLET PO SCH (10:06)
[2018-09-13] MEDS: ESCITALOPRAM OXALATE 10 MG TABLET PO SCH (10:06)
[2018-09-13] MEDS: CLOPIDOGREL BISULFATE 75 MG TABLET PO SCH (10:11)
[2018-09-13] MEDS: METOPROLOL SUCCINATE 25 MG TAB.SR.24H PO SCH (10:11)
[2018-09-13] MEDS: FLUTICASONE NASAL SPRAY 50 MCG/SPRY 120 SPRAY/16 GM NASL SCH ×3 (10:12→21:38)
[2018-09-13] MEDS: NITROGLYCERIN 5 MG (0.2 MG/HR) PATCH.TD24 TD SCH (10:24)
[2018-09-13 11:00] LABS: CREATINE KINASE MB 0.95 ng/mL (<4.55); TROPONIN I 0.052 ng/mL
--- NOTE | 2018-09-13 13:40 | EKG REPORT ---
SEVERITY:- ABNORMAL ECG - AFIB/FLUTTER AND VENTRICULAR-PACED RHYTHM : Confirmed by: January James MD 13-Sep-2018 13:39:30
[2018-09-13 15:59] LABS: CREATINE KINASE MB 1.13 ng/mL (<4.55); TROPONIN I 0.038 ng/mL
--- NOTE | 2018-09-13 16:33 | PDOC PROGRESS REPORT ---
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 He was admitted for CHF exacerbation and was started on IV Lasix. Patient did diurese well overnight and says his breathing is much better compared to yesterday but is not at his baseline yet. He says his leg swelling also has improved and his abdomen feels less tight. He denies chest pain or palp itations. Reason For Visit: HEART FAILURE Physical Exam Vital Signs: Temp Pulse Resp BP Pulse Ox 98.3 F 81 18 140/55 H 95 09/13/18 11:57 09/13/18 14:00 09/13/18 11:57 09/13/18 11:57 09/13/18 11:57 Intake & Output 09/12/18 09/13/18 09/14/18 06:59 06:59 06:59 Intake Total 362 286 Output Total 475 300 Balance -113 -14 Weight 198 lb 6.656 oz General appearance: PRESENT: no acute distress, well-developed, well-nourished Head exam: PRESENT: atraumatic, normocephalic Eye exam: PRESENT: conjunctiva pink, EOMI, PERRLA. ABSENT: scleral icterus Ear exam: PRESENT: normal external ear exam Mouth exam: PRESENT: moist, tongue midline Neck exam: ABSENT: carotid bruit, JVD, lymphadenopathy, thyromegaly Respiratory exam: PRESENT: rales - mild rales on the bases. ABSENT: rhonchi, wheezes Cardiovascular exam: PRESENT: RRR. ABSENT: diastolic murmur, rubs, systolic murmur Pulses: PRESENT: normal dorsalis pedis pul GI/Abdominal exam: PRESENT: normal bowel sounds, soft. ABSENT: distended, guarding, mass, organolmegaly, rebound, tenderness Rectal exam: PRESENT: deferred Extremities exam: PRESENT: +1 edema Neurological exam: PRESENT: alert, awake, oriented to person, oriented to place, oriented to time, oriented to situation, CN II-XII grossly intact. ABSENT: motor sensory deficit Results Laboratory Results: 09/13/18 03:00 09/13/18 03:00 09/12/18 09/12/18 09/12/18 16:05 16:05 16:05 WBC 6.7 RBC 3.20 L Hgb 11.1 L Hct 32.5 L MCV 101 H MCH 34.7 H MCHC 34.2 RDW 13.6 Plt Count 171 Seg Neutrophils % 75.9 Lymphocytes % 8.6 L Monocytes % 13.4 H Eosinophils % 1.6 Basophils % 0.5 Absolute Neutrophils 5.1 Absolute Lymphocytes 0.6 Absolute Monocytes 0.9 Absolute Eosinophils 0.1 Absolute Basophils 0.0 Carbonic Acid HCO3/H2CO3 Ratio ABG pH ABG pCO2 ABG pO2 ABG HCO3 ABG O2 Saturation ABG Base Excess FiO2 Sodium 142.2 Potassium 3.3 L Chloride 104 Carbon Dioxide 30 Anion Gap 8 BUN 28 H Creatinine 1.31 H Est GFR ( Amer) > 60 Est GFR (Non-Af Amer) 52 L Glucose 131 H Calcium 9.6 Magnesium Total Bilirubin 1.1 AST 29 ALT 19 L Alkaline Phosphatase 96 Total Protein 7.9 Albumin 4.1 TSH 2.97 09/12/18 09/12/18 09/13/18 16:05 19:33 03:00 WBC RBC Hgb Hct MCV MCH MCHC RDW Plt Count Seg Neutrophils % Lymphocytes % Monocytes % Eosinophils % Basophils % Absolute Neutrophils Absolute Lymphocytes Absolute Monocytes Absolute Eosinophils Absolute Basophils Carbonic Acid 1.25 HCO3/H2CO3 Ratio 22:1 ABG pH 7.44 ABG pCO2 41.6 ABG pO2 74.1 L ABG HCO3 27.9 H ABG O2 Saturation 95.4 ABG Base Excess 3.5 FiO2 ROOM AIR Sodium 143.8 Potassium 3.8 Chloride 105 Carbon Dioxide 27 Anion Gap 12 BUN 28 H Creatinine 1.27 H Est GFR ( Amer) > 60 Est GFR (Non-Af Amer) 54 L Glucose 131 H Calcium 9.5 Magnesium 2.3 2.1 Total Bilirubin AST ALT Alkaline Phosphatase Total Protein Albumin TSH 09/13/18 03:00 WBC 9.5 RBC 3.29 L Hgb 11.5 L Hct 32.7 L MCV 100 H MCH 35.0 H MCHC 35.1 RDW 13.7 Plt Count 156 Seg Neutrophils % Not Reportable Lymphocytes % Not Reportable Monocytes % Not Reportable Eosinophils % Not Reportable Basophils % Not Reportable Absolute Neutrophils Not Reportable Absolute Lymphocytes Not Reportable Absolute Monocytes Not Reportable Absolute Eosinophils Not Reportable Absolute Basophils Not Reportable Carbonic Acid HCO3/H2CO3 Ratio ABG pH ABG pCO2 ABG pO2 ABG HCO3 ABG O2 Saturation ABG Base Excess FiO2 Sodium Potassium Chloride Carbon Dioxide Anion Gap BUN Creatinine Est GFR ( Amer) Est GFR (Non-Af Amer) Glucose Calcium Magnesium Total Bilirubin AST ALT Alkaline Phosphatase Total Protein Albumin TSH 09/12/18 09/12/18 09/12/18 16:05 16:05 20:55 Creatine Kinase 30 L CK-MB (CK-2) 1.27 Troponin I 0.017 0.019 NT-Pro-B Natriuret Pep 3790 H 09/13/18 09/13/18 09/13/18 03:00 03:00 09:21 Creatine Kinase 32 L 27 L CK-MB (CK-2) 1.13 Troponin I 0.042 NT-Pro-B Natriuret Pep 09/13/18 09/13/18 09/13/18 09:21 15:13 15:13 Creatine Kinase 32 L CK-MB (CK-2) 0.95 1.13 Troponin I 0.052 0.038 NT-Pro-B Natriuret Pep Impressions: Abdomen/Pelvis CT 09/12/18 00:00 IMPRESSION: 1. Gallstones with mild surrounding stranding although the gallbladder is contracted. Consider ultrasound for complete evaluation if clinically indicated. 2. Stable infrarenal abdominal aortic aneurysm status post stenting. 3. Diverticulosis without inflammatory changes. Chest X-Ray 09/12/18 15:55 IMPRESSION: Cardiomegaly with vascular congestion, similar appearance compared to prior. Chronic versus recurrent. Assessment & Plan - Diagnosis (1) Acute exacerbation of CHF (congestive heart failure) Qualifiers: Heart failure type: unspecified Qualified Code(s): I50.9 - Heart failure, unspecified Is this a current diagnosis for this admission?: Yes Plan: Improving. Continue Lasix 40 mg IV q12. He is diuresing well. Continue I&Os. (2) Hypokalemia Is this a current diagnosis for this admission?: Yes Plan: Resolved. Related to diuresis. (3) Hypertension Qualifiers: Hypertension type: unspecified Qualified Code(s): I10 - Essential (primary) hypertension Is this a current diagnosis for this admission?: Yes Plan: BP running in the 140/80s. (4) History of atrial fibrillation Is this a current diagnosis for this admission?: Yes Plan: V-paced. On Eliquis. (5) Chronic respiratory failure Is this a current diagnosis for this admission?: Yes Plan: Patient is on 2L of home O2 for COPD. - Time Time Spent with patient: 15-24 minutes
[2018-09-14 05:54] LABS: ANION GAP 12 (5-19); BLOOD UREA NITROGEN 31 mg/dL (7-20); CALCIUM 9.1 mg/dL (8.4-10.2); CARBON DIOXIDE 24 mmol/L (22-30); CHLORIDE 104 mmol/L (98-107); GLUCOSE 108 mg/dL (75-110); POTASSIUM 4.3 mmol/L (3.6-5.0); SODIUM 140.2 mmol/L (137-145)
--- NOTE | 2018-09-14 09:24 | RADIOLOGY REPORT (SQ) ---
09/12/2017 EXAM DESCRIPTION: CHEST SINGLE VIEW COMPLETED DATE/TIME: 09/14/2018 9:06 am REASON FOR STUDY: congestion COMPARISON: 09/12/2018 EXAM PARAMETERS: NUMBER OF VIEWS: One view. TECHNIQUE: Single frontal radiographic view of the chest acquired. RADIATION DOSE: NA LIMITATIONS: None. FINDINGS: LUNGS AND PLEURA: No focal airspace disease, pleural effusion or pneumothorax. Unchanged chronic interstitial opacities. MEDIASTINUM AND HILAR STRUCTURES: No discrete mass. HEART AND VASCULAR STRUCTURES: Enlarged, stable. Atherosclerotic aorta. 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 BONES: Median sternotomy changes. No acute bony abnormality. HARDWARE: Left-sided cardiac pacer with leads overlying right atrium and right ventricle. CABG marke rs and median sternotomy wires. OTHER: No other significant finding. IMPRESSION: Stable enlarged cardiac silhouette and central vascular congestion. No overt edema. TECHNICAL DOCUMENTATION: JOB ID: [id number] [employer]- All Rights Reserved Reading location - IP/workstation name: [email or web address]
[2018-09-14] MEDS: NITROGLYCERIN 5 MG (0.2 MG/HR) PATCH.TD24 TD SCH (10:02)
[2018-09-14] MEDS: FUROSEMIDE INJ/PF 40 MG/4 ML SDV IV SCH ×2 (10:06→21:34)
[2018-09-14] MEDS: FINASTERIDE 5 MG TABLET PO SCH (10:06)
[2018-09-14] MEDS: ESCITALOPRAM OXALATE 10 MG TABLET PO SCH (10:07)
[2018-09-14] MEDS: APIXABAN 2.5 MG TABLET PO SCH ×2 (10:08→21:34)
[2018-09-14] MEDS: METOPROLOL SUCCINATE 25 MG TAB.SR.24H PO SCH (10:08)
[2018-09-14] MEDS: EPLERENONE 25 MG TABLET PO SCH (10:08)
[2018-09-14] MEDS: CLOPIDOGREL BISULFATE 75 MG TABLET PO SCH (10:08)
[2018-09-14] MEDS: FLUTICASONE NASAL SPRAY 50 MCG/SPRY 120 SPRAY/16 GM NASL SCH ×2 (10:09→21:35)
[2018-09-14] MEDS: SENNOSIDES/DOCUSATE 8.6-50 MG 1 EACH TABLET PO PRN (10:09)
--- NOTE | 2018-09-14 12:21 | PDOC PROGRESS REPORT ---
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 He was admitted for CHF exacerbation and was started on IV Lasix. Patient continues to improve and is diuresing well. He says he continues to feel better but says he is not at his baseline yet. He denies chest pain or palpitations. Reason For Visit: HEART FAILURE Physical Exam Vital Signs: Temp Pulse Resp BP Pulse Ox 98.2 F 63 20 155/55 H 93 09/14/18 12:04 09/14/18 12:04 09/14/18 12:04 09/14/18 12:04 09/14/18 12:04 Intake & Output 09/13/18 09/14/18 09/15/18 06:59 06:59 06:59 Intake Total 362 1574 Output Total 475 300 Balance -113 1274 Weight 198 lb 6.656 oz 185 lb 6.54 oz General appearance: PRESENT: no acute distress, well-developed, well-nourished Head exam: PRESENT: atraumatic, normocephalic Eye exam: PRESENT: conjunctiva pink, EOMI, PERRLA. ABSENT: scleral icterus Ear exam: PRESENT: normal external ear exam Mouth exam: PRESENT: moist, tongue midline Neck exam: ABSENT: carotid bruit, JVD, lymphadenopathy, thyromegaly Respiratory exam: PRESENT: rales - on the bases significantly improved from yesterday. ABSENT: rhonchi, wheezes Cardiovascular exam: PRESENT: RRR. ABSENT: diastolic murmur, rubs, systolic murmur Pulses: PRESENT: normal dorsalis pedis pul GI/Abdominal exam: ABSENT: distended, mass, tenderness Rectal exam: PRESENT: deferred Extremities exam: PRESENT: +2 edema Neurological exam: PRESENT: alert, awake, oriented to person, oriented to place, oriented to time, oriented to situation, CN II-XII grossly intact. ABSENT: motor sensory deficit Results Laboratory Results: 09/13/18 03:00 09/14/18 04:48 09/14/18 04:48 Sodium 140.2 Potassium 4.3 Chloride 104 Carbon Dioxide 24 Anion Gap 12 BUN 31 H Creatinine 1.22 Est GFR ( Amer) > 60 Est GFR (Non-Af Amer) 56 L Glucose 108 Calcium 9.1 09/12/18 09/12/18 09/12/18 16:05 16:05 20:55 Creatine Kinase 30 L CK-MB (CK-2) 1.27 Troponin I 0.017 0.019 NT-Pro-B Natriuret Pep 3790 H 09/13/18 09/13/18 09/13/18 03:00 03:00 09:21 Creatine Kinase 32 L 27 L CK-MB (CK-2) 1.13 Troponin I 0.042 NT-Pro-B Natriuret Pep 09/13/18 09/13/18 09/13/18 09:21 15:13 15:13 Creatine Kinase 32 L CK-MB (CK-2) 0.95 1.13 Troponin I 0.052 0.038 NT-Pro-B Natriuret Pep Impressions: Abdomen/Pelvis CT 09/12/18 00:00 IMPRESSION: 1. Gallstones with mild surrounding stranding although the gallbladder is contracted. Consider ultrasound for complete evaluation if clinically indicated. 2. Stable infrarenal abdominal aortic aneurysm status post stenting. 3. Diverticulosis without inflammatory changes. Chest X-Ray 09/14/18 06:00 IMPRESSION: Stable enlarged cardiac silhouette and central vascular congestion. No overt edema. Assessment & Plan - Diagnosis (1) Acute exacerbation of CHF (congestive heart failure) Qualifiers: Heart failure type: unspecified Qualified Code(s): I50.9 - Heart failure, unspecified Is this a current diagnosis for this admission?: Yes Plan: Improving. Continue Lasix 40 mg IV q12. He is diuresing well. Continue I&Os. Wi ll decrease Lasix to 40 mg daily today. (2) Hypokalemia Is this a current diagnosis for this admission?: Yes Plan: Resolved. Related to diuresis. (3) Hypertension Qualifiers: Hypertension type: unspecified Qualified Code(s): I10 - Essential (primary) hypertension Is this a current diagnosis for this admission?: Yes Plan: BP running in the 140/80s. (4) History of atrial fibrillation Is this a current diagnosis for this admission?: Yes Plan: V-paced. On Eliquis. (5) Chronic respiratory failure Is this a current diagnosis for this admission?: Yes Plan: Patient is on 2L of home O2 for COPD. - Time Time Spent with patient: 15-24 minutes
[2018-09-14] MEDS ORDERED: ALBUTEROL SULFATE 0.083% NEB 2.5 MG/3 ML AMPUL NEB PRN (12:43)
[2018-09-15] MEDS: EPLERENONE 25 MG TABLET PO SCH (09:48)
[2018-09-15] MEDS: FUROSEMIDE INJ/PF 40 MG/4 ML SDV IV SCH ×2 (09:48→22:29)
[2018-09-15] MEDS: APIXABAN 2.5 MG TABLET PO SCH ×2 (09:48→22:30)
[2018-09-15] MEDS: FLUTICASONE NASAL SPRAY 50 MCG/SPRY 120 SPRAY/16 GM NASL SCH ×2 (09:48→22:31)
[2018-09-15] MEDS: FINASTERIDE 5 MG TABLET PO SCH (09:49)
[2018-09-15] MEDS: METOPROLOL SUCCINATE 25 MG TAB.SR.24H PO SCH (09:49)
[2018-09-15] MEDS: CLOPIDOGREL BISULFATE 75 MG TABLET PO SCH (09:49)
[2018-09-15] MEDS: ESCITALOPRAM OXALATE 10 MG TABLET PO SCH (09:49)
[2018-09-15] MEDS: NITROGLYCERIN 5 MG (0.2 MG/HR) PATCH.TD24 TD SCH (09:54)
--- NOTE | 2018-09-15 13:03 | RADIOLOGY REPORT (SQ) ---
EXAM DESCRIPTION: CHEST SINGLE VIEW COMPLETED DATE/TIME: 09/15/2018 12:41 pm REASON FOR STUDY: reassess congestion COMPARISON: 09/14/2018. NUMBER OF VIEWS: One view. TECHNIQUE: Single frontal radiographic view of the chest acquired. LIMITATIONS: None. FINDINGS: LUNGS AND PLEURA: No opacities, masses or pneumothorax. No pleural effusion. MEDIASTINUM AND HILAR STRUCTURES: No masses. Contour normal. HEART AND VASCULAR STRUCTURES: Stable cardiac enlargement. Minimal central vascular congestion. Sim ilar appearance to prior. BONES: No acute findings. HARDWARE: Left pacer. OTHER: No other significant finding. IMPRESSION: Relatively stable chest. Cardiomegaly and mild vascular congestion. TECHNICAL DOCUMENTATION: JOB ID: [id number] [employer]- All Rights Reserved Reading location - IP/workstation name: [email or web address]
--- NOTE | 2018-09-15 16:24 | PDOC PROGRESS REPORT ---
Subjective Progress Note for:: 09/15/18 Subjective:: This is a 88 year old male with a past medical history of congestive heart failure, atrial fibrillation, S/P pacemaker, COPD with home oxygen dependence, obstructive sleep apnea and BPH who presented with increasing SOB and increasing pedal edema for the past 2 weeks. He was admitted for CHF exacerbation and was started on IV Lasix. Patient says his breathing continues to improve but he says he is now coughing up more whitish phlegm. He is diuresing well. He says he does not feel he is at his baseline yet. He denies chest pain or palpitations. Reason For Visit: HEART FAILURE Physical Exam Vital Signs: Temp Pulse Resp BP Pulse Ox 97.7 F 60 18 147/58 H 98 09/15/18 14:00 09/15/18 14:00 09/15/18 14:00 09/15/18 14:00 09/15/18 14:00 Intake & Output 09/14/18 09/15/18 09/16/18 06:59 06:59 06:59 Intake Total 1574 827 Output Total 300 1250 Balance 1274 -423 Weight 185 lb 6.54 oz 213 lb 10.047 oz General appearance: PRESENT: no acute distress, well-developed, well-nourished Head exam: PRESENT: atraumatic, normocephalic Eye exam: PRESENT: conjunctiva pink, EOMI, PERRLA. ABSENT: scleral icterus Ear exam: PRESENT: normal external ear exam Mouth exam: PRESENT: moist, tongue midline Neck exam: ABSENT: carotid bruit, JVD, lymphadenopathy, thyromegaly Respiratory exam: PRESENT: rales - rales on the baes-improved from yesterday, rhonchi, wheezes - mild wheezes Cardiovascular exam: PRESENT: RRR. ABSENT: diastolic murmur, rubs, systolic murmur Pulses: PRESENT: normal dorsalis pedis pul GI/Abdominal exam: PRESENT: ascites, distended. ABSENT: tenderness Rectal exam: PRESENT: deferred Extremities exam: PRESENT: +1 edema Neurological exam: PRESENT: alert, awake, oriented to person, oriented to place, oriented to time, oriented to situation, CN II-XII grossly intact. ABSENT: motor sensory deficit Results Laboratory Results: 09/13/18 03:00 09/14/18 04:48 09/12/18 09/12/18 09/12/18 16:05 16:05 20:55 Creatine Kinase 30 L CK-MB (CK-2) 1.27 Troponin I 0.017 0.019 NT-Pro-B Natriuret Pep 3790 H 09/13/18 09/13/18 09/13/18 03:00 03:00 09:21 Creatine Kinase 32 L 27 L CK-MB (CK-2) 1.13 Troponin I 0.042 NT-Pro-B Natriuret Pep 09/13/18 09/13/18 09/13/18 09:21 15:13 15:13 Creatine Kinase 32 L CK-MB (CK-2) 0.95 1.13 Troponin I 0.052 0.038 NT-Pro-B Natriuret Pep Impressions: Abdomen/Pelvis CT 09/12/18 00:00 IMPRESSION: 1. Gallstones with mild surrounding stranding although the gallbladder is contracted. Consider ultrasound for complete evaluation if clinically indicated. 2. Stable infrarenal abdominal aortic aneurysm status post stenting. 3. Diverticulosis without inflammatory changes. Chest X-Ray 09/15/18 12:13 IMPRESSION: Relatively stable chest. Cardiomegaly and mild vascular congestion. Assessment & Plan - Diagnosis (1) Acute exacerbation of CHF (congestive heart failure) Qualifiers: Heart failure type: unspecified Qualified Code(s): I50.9 - Heart failure, unspecified Is this a current diagnosis for this admission?: Yes Plan: Improving. Continue IV Lasix. He is diuresing well. Continue I&Os. Chest x-ray today shows mild congestion albeit improved. (2) Hypokalemia Is this a current diagnosis for this admission?: Yes Plan: Resolved. Related to diuresis. (3) Hypertension Qualifiers: Hypertension type: unspecified Qualified Code(s): I10 - Essential (primary) hypertension Is this a current diagnosis for this admission?: Yes Plan: BP running in the 140/80s. (4) History of atrial fibrillation Is this a current diagnosis for this admission?: Yes Plan: V-paced. On Eliquis. (5) Chronic respiratory failure Is this a current diagnosis for this admission?: Yes Plan: Patient is on 2L of home O2 for COPD. He does have mild wheezes today. Will add low dose prednisone. - Time Time Spent with patient: 25-34 minutes
[2018-09-15 17:04] LABS: ABSOLUTE BASOPHILS # (AUTO) 0.1 10^3/uL (0.0-0.2); ABSOLUTE EOSINOPHILS # (AUTO) 0.2 10^3/uL (0.0-0.6); ABSOLUTE LYMPHOCYTES (AUTO) 0.7 10^3/uL (0.5-4.7); ABSOLUTE MONOCYTES (AUTO) 0.8 10^3/uL (0.1-1.4); ABSOLUTE NEUT (AUTO) 4.4 10^3/uL (1.7-8.2); BASOPHILS % (AUTO) 0.9 % (0-2); EOSINOPHILS % (AUTO) 3.1 % (0-6); HEMATOCRIT 32.2 % (37.9-51.0); LYMPHOCYTES % (AUTO) 11.7 % (13-45); MEAN CORPUSCULAR HEMOGLOBIN 34.5 pg (27.0-33.4); MEAN CORPUSCULAR HGB CONC 34.4 g/dL (32.0-36.0); MEAN CORPUSCULAR VOLUME 101 fl (80-97); MONOCYTES % (AUTO) 12.7 % (3-13); PLATELET COUNT 185 10^3/uL (150-450); RED CELL DISTRIBUTION WIDTH 13.6 % (11.5-14.0); SEGMENTED NEUTROPHILS % (AUTO) 71.6 % (42-78); TOTAL CELLS COUNTED % (AUTO) 100 %; WHITE BLOOD COUNT 6.2 10^3/uL (4.0-10.5)
[2018-09-15 17:23] LABS: ANION GAP 11 (5-19); BLOOD UREA NITROGEN 33 mg/dL (7-20); CALCIUM 9.7 mg/dL (8.4-10.2); CARBON DIOXIDE 26 mmol/L (22-30); CHLORIDE 104 mmol/L (98-107); GLUCOSE 118 mg/dL (75-110); POTASSIUM 3.8 mmol/L (3.6-5.0); SODIUM 140.5 mmol/L (137-145)
[2018-09-15] MEDS: GUAIFENESIN 600 MG TABLET.SA PO SCH ×2 (17:37→22:30)
[2018-09-15] MEDS: PREDNISONE 20 MG TABLET PO SCH (17:37)
[2018-09-16] MEDS: METOPROLOL SUCCINATE 25 MG TAB.SR.24H PO SCH (09:48)
[2018-09-16] MEDS: PREDNISONE 20 MG TABLET PO SCH ×2 (09:48→17:31)
[2018-09-16] MEDS: CLOPIDOGREL BISULFATE 75 MG TABLET PO SCH (09:49)
[2018-09-16] MEDS: ESCITALOPRAM OXALATE 10 MG TABLET PO SCH (09:49)
[2018-09-16] MEDS: GUAIFENESIN 600 MG TABLET.SA PO SCH ×2 (09:49→22:57)
[2018-09-16] MEDS: FINASTERIDE 5 MG TABLET PO SCH (09:49)
[2018-09-16] MEDS: APIXABAN 2.5 MG TABLET PO SCH ×2 (09:49→22:57)
[2018-09-16] MEDS: FUROSEMIDE INJ/PF 40 MG/4 ML SDV IV SCH ×2 (09:50→22:56)
[2018-09-16] MEDS: EPLERENONE 25 MG TABLET PO SCH (09:50)
[2018-09-16] MEDS: FLUTICASONE NASAL SPRAY 50 MCG/SPRY 120 SPRAY/16 GM NASL SCH ×2 (09:51→22:58)
[2018-09-16] MEDS: NITROGLYCERIN 5 MG (0.2 MG/HR) PATCH.TD24 TD SCH (09:51)
[2018-09-16] MEDS: SENNOSIDES/DOCUSATE 8.6-50 MG 1 EACH TABLET PO PRN (11:11)
--- NOTE | 2018-09-16 12:05 | RADIOLOGY REPORT (SQ) ---
EXAM DESCRIPTION: CHEST SINGLE VIEW COMPLETED DATE/TIME: 09/16/2018 11:11 am REASON FOR STUDY: congestion COMPARISON: 09/15/2018. EXAM PARAMETERS: NUMBER OF VIEWS: One view. TECHNIQUE: AP upright apical lordotic view. RADIATION DOSE: NA LIMITATIONS: None. FINDINGS: LUNGS AND PLEURA: No acute infiltrates or effusions. MEDIASTINUM AND HILAR STRUCTURES: No masses. Contour normal. HEART AND VASCULAR STRUCTURES: Persistent cardiomegaly and changes of CABG. Median sternotomy wires and marker clips in place. Pulmonary vasculature remains prominent. BONES: No acute findings. HARDWARE: Pacemaker leads in place. OTHER: No other significant finding. IMPRESSION: Persistent cardiomegaly and mild pulmonary vascular congestion. TECHNICAL DOCUMENTATION: JOB ID: [id number] [email or web address]- All Rights Reserved Reading location - IP/workstation name: [email or web address]
[2018-09-16 12:54] LABS: ABSOLUTE LYMPHOCYTES (AUTO) 0.4 10^3/uL (0.5-4.7); ABSOLUTE MONOCYTES (AUTO) 0.7 10^3/uL (0.1-1.4); ABSOLUTE NEUT (AUTO) 5.7 10^3/uL (1.7-8.2); BASOPHILS % (AUTO) 0.2 % (0-2); EOSINOPHILS % (AUTO) 0.3 % (0-6); HEMATOCRIT 33.1 % (37.9-51.0); HEMOGLOBIN 11.5 g/dL (13.5-17.0); LYMPHOCYTES % (AUTO) 5.7 % (13-45); MEAN CORPUSCULAR HEMOGLOBIN 34.5 pg (27.0-33.4); MEAN CORPUSCULAR HGB CONC 34.7 g/dL (32.0-36.0); MEAN CORPUSCULAR VOLUME 100 fl (80-97); MONOCYTES % (AUTO) 9.6 % (3-13); PLATELET COUNT 207 10^3/uL (150-450); RED BLOOD COUNT 3.33 10^6/uL (4.35-5.55); RED CELL DISTRIBUTION WIDTH 13.5 % (11.5-14.0); SEGMENTED NEUTROPHILS % (AUTO) 84.2 % (42-78); TOTAL CELLS COUNTED % (AUTO) 100 %; WHITE BLOOD COUNT 6.8 10^3/uL (4.0-10.5)
[2018-09-16 13:16] LABS: ANION GAP 11 (5-19); BLOOD UREA NITROGEN 36 mg/dL (7-20); CARBON DIOXIDE 27 mmol/L (22-30); CHLORIDE 102 mmol/L (98-107); GLUCOSE 110 mg/dL (75-110); POTASSIUM 4.1 mmol/L (3.6-5.0); SODIUM 139.7 mmol/L (137-145)
[2018-09-16] MEDS ORDERED: BUMETANIDE INJ/PF 1 MG/4 ML SDV IV STA (15:21)
--- NOTE | 2018-09-16 16:13 | PDOC PROGRESS REPORT ---
Subjective Progress Note for:: 09/16/18 Subjective:: This is a 88 year old male with a past medical history of congestive heart failure, atrial fibrillation, S/P pacemaker, COPD with home oxygen dependence, obstructive sleep apnea and BPH who presented with increasing SOB and increasing pedal edema for the past 2 weeks. He was admitted for CHF exacerbation and was started on IV Lasix. No acute event overnight. He says his breathing continues to improve but feels he is not at his baseline yet. He is diuresing well. He denies chest pain or palpitations. Reason For Visit: HEART FAILURE Physical Exam Vital Signs: Temp Pulse Resp BP Pulse Ox 97.4 F 59 L 16 140/65 H 98 09/16/18 15:51 09/16/18 15:51 09/16/18 15:51 09/16/18 15:51 09/16/18 15:51 Intake & Output 09/15/18 09/16/18 09/17/18 06:59 06:59 06:59 Intake Total 827 1332 Output Total 1250 980 Balance -423 352 Weight 213 lb 10.047 oz 207 lb 7.28 oz General appearance: PRESENT: no acute distress, well-developed, well-nourished Head exam: PRESENT: atraumatic, normocephalic Eye exam: PRESENT: conjunctiva pink, EOMI, PERRLA. ABSENT: scleral icterus Ear exam: PRESENT: normal external ear exam Mouth exam: PRESENT: moist, tongue midline Neck exam: ABSENT: carotid bruit, JVD, lymphadenopathy, thyromegaly Respiratory exam: PRESENT: rales - much improved from yesterday. ABSENT: rhonchi, wheezes Cardiovascular exam: PRESENT: RRR. ABSENT: diastolic murmur, rubs, systolic murmur Pulses: PRESENT: normal dorsalis pedis pul GI/Abdominal exam: PRESENT: normal bowel sounds, soft. ABSENT: distended, guarding, mass, organolmegaly, rebound, tenderness Rectal exam: PRESENT: deferred Extremities exam: PRESENT: +2 edema Neurological exam: PRESENT: alert, awake, oriented to person, oriented to place, oriented to time, oriented to situation, CN II-XII grossly intact. ABSENT: motor sensory deficit Results Laboratory Results: 09/16/18 12:20 09/16/18 12:20 09/15/18 09/15/18 09/16/18 16:54 16:54 12:20 WBC 6.2 6.8 RBC 3.20 L 3.33 L Hgb 11.0 L 11.5 L Hct 32.2 L 33.1 L MCV 101 H 100 H MCH 34.5 H 34.5 H MCHC 34.4 34.7 RDW 13.6 13.5 Plt Count 185 207 Seg Neutrophils % 71.6 84.2 H Lymphocytes % 11.7 L 5.7 L Monocytes % 12.7 9.6 Eosinophils % 3.1 0.3 Basophils % 0.9 0.2 Absolute Neutrophils 4.4 5.7 Absolute Lymphocytes 0.7 0.4 L Absolute Monocytes 0.8 0.7 Absolute Eosinophils 0.2 0.0 Absolute Basophils 0.1 0.0 Sodium 140.5 Potassium 3.8 Chloride 104 Carbon Dioxide 26 Anion Gap 11 BUN 33 H Creatinine 1.72 H Est GFR ( Amer) 46 L Est GFR (Non-Af Amer) 38 L Glucose 118 H Calcium 9.7 09/16/18 12:20 WBC RBC Hgb Hct MCV MCH MCHC RDW Plt Count Seg Neutrophils % Lymphocytes % Monocytes % Eosinophils % Basophils % Absolute Neutrophils Absolute Lymphocytes Absolute Monocytes Absolute Eosinophils Absolute Basophils Sodium 139.7 Potassium 4.1 Chloride 102 Carbon Dioxide 27 Anion Gap 11 BUN 36 H Creatinine 1.14 Est GFR ( Amer) > 60 Est GFR (Non-Af Amer) > 60 Glucose 110 Calcium 10.0 09/12/18 09/12/18 09/12/18 16:05 16:05 20:55 Creatine Kinase 30 L CK-MB (CK-2) 1.27 Troponin I 0.017 0.019 NT-Pro-B Natriuret Pep 3790 H 09/13/18 09/13/18 09/13/18 03:00 03:00 09:21 Creatine Kinase 32 L 27 L CK-MB (CK-2) 1.13 Troponin I 0.042 NT-Pro-B Natriuret Pep 09/13/18 09/13/18 09/13/18 09:21 15:13 15:13 Creatine Kinase 32 L CK-MB (CK-2) 0.95 1.13 Troponin I 0.052 0.038 NT-Pro-B Natriuret Pep Impressions: Abdomen/Pelvis CT 09/12/18 00:00 IMPRESSION: 1. Gallstones with mild surrounding stranding although the gallbladder is contracted. Consider ultrasound for complete evaluation if clinically indicated. 2. Stable infrarenal abdominal aortic aneurysm status post stenting. 3. Diverticulosis without inflammatory changes. Chest X-Ray 09/16/18 00:00 IMPRESSION: Persistent cardiomegaly and mild pulmonary vascular congestion. Assessment & Plan - Diagnosis (1) Acute exacerbation of CHF (congestive heart failure) Qualifiers: Heart failure type: unspecified Qualified Code(s): I50.9 - Heart failure, unspecified Is this a current diagnosis for this admission?: Yes Plan: Improving. Continue IV Lasix. He is diuresing well. Continue I&Os. Chest x-ray t brenda still shows some congestion but has improved. Will give a dose of Bumex today. (2) Hypokalemia Is this a current diagnosis for this admission?: Yes Plan: Resolved. Related to diuresis. (3) Hypertension Qualifiers: Hypertension type: unspecified Qualified Code(s): I10 - Essential (primary) hypertension Is this a current diagnosis for this admission?: Yes Plan: BP running in the 140/80s. (4) History of atrial fibrillation Is this a current diagnosis for this admission?: Yes Plan: V-paced. On Eliquis. (5) Chronic respiratory failure Is this a current diagnosis for this admission?: Yes Plan: Patient is on 2L of home O2 for COPD. He does have mild wheezes today. Continue low dose prednisone. - Time Time Spent with patient: 15-24 minutes
[2018-09-17] MEDS: FUROSEMIDE INJ/PF 40 MG/4 ML SDV IV SCH (09:48)
[2018-09-17] MEDS: PREDNISONE 20 MG TABLET PO SCH (09:49)
[2018-09-17] MEDS: GUAIFENESIN 600 MG TABLET.SA PO SCH (09:49)
[2018-09-17] MEDS: EPLERENONE 25 MG TABLET PO SCH (09:49)
[2018-09-17] MEDS: METOPROLOL SUCCINATE 25 MG TAB.SR.24H PO SCH (09:49)
[2018-09-17] MEDS: CLOPIDOGREL BISULFATE 75 MG TABLET PO SCH (09:49)
[2018-09-17] MEDS: APIXABAN 2.5 MG TABLET PO SCH (09:49)
[2018-09-17] MEDS: ESCITALOPRAM OXALATE 10 MG TABLET PO SCH (09:49)
[2018-09-17] MEDS: FINASTERIDE 5 MG TABLET PO SCH (09:49)
[2018-09-17] MEDS: FLUTICASONE NASAL SPRAY 50 MCG/SPRY 120 SPRAY/16 GM NASL SCH (09:56)
[2018-09-17] MEDS: NITROGLYCERIN 5 MG (0.2 MG/HR) PATCH.TD24 TD SCH (10:04)
[2018-09-17 11:58] VITALS: BP 141/70
--- NOTE | 2018-09-20 16:39 | PDOC DISCHARGE SUMMARY ---
General - Admit/Disc Date/PCP Admission Date/Primary Care Provider: 09/12/18 22:44 Discharge Date: 09/17/18 - Discharge Diagnosis (1) Acute exacerbation of CHF (congestive heart failure) Is this a current diagnosis for this admission?: Yes (2) Hypokalemia Is this a current diagnosis for this admission?: Yes (3) Hypertension Is this a current diagnosis for this admission?: Yes (4) History of atrial fibrillation Is this a current diagnosis for this admission?: Yes (5) Chronic respiratory failure Is this a current diagnosis for this admission?: Yes - Additional Information Resuscitation Status: Full Code Discharge Diet: Cardiac Discharge Activity: Activity As Tolerated, Balance Activity w/Rest, Weigh Daily Prescriptions: Bumetanide [Bumex 1 mg Tablet] 1 tab PO Q12 #60 tablet Metoprolol Succinate [Toprol Xl 25 mg Tab.sr] 12.5 mg PO DAILY #30 tab.sr.24h Sennosides/Docusate 8.6-50 mg [Senna Plus Tablet] 1 each PO BIDP PRN #60 tablet PRN Reason: Home Medications: Acetaminophen [Tylenol Extra Strength 500 mg Tablet] 500 mg PO QHS 09/13/18 Albuterol Sulfate [Ventolin 0.083% Neb 2.5 mg/3 mL Ampul] 1 vial NEB RTQ4HP PRN 09/13/18 Atorvastatin Calcium [Lipitor 40 mg Tablet] 40 mg PO DAILY 09/13/18 Clopidogrel Bisulfate [Plavix 75 mg Tablet] 75 mg PO DAILY 09/13/18 Cyanocobalamin (Vitamin B-12) [Vitamin B12] 2,500 mcg PO DAILY 09/13/18 Diazepam [Valium 5 mg Tablet] 5 mg PO DAILY 09/13/18 Eplerenone [Inspra] 50 mg PO DAILY 09/13/18 Escitalopram Oxalate [Lexapro 10 mg Tablet] 10 mg PO DAILY 09/13/18 Finasteride [Proscar 5 mg Tablet] 5 mg PO DAILY 09/13/18 Montelukast Sodium [Singulair 10 mg Tablet] 10 mg PO QPM 09/13/18 Multivitamin [Multiple Vitamins] 1 each PO DAILY 09/13/18 Nitroglycerin [Nitrostat 0.4 mg (1/150 Gr) Tabs 25/Bottle] 1 tab SL Q5MP PRN 09/13/18 Omeprazole 20 mg PO Q6AM 09/13/18 Tamsulosin HCl [Flomax 0.4 mg Cap.sr] 0.4 mg PO DAILY 09/13/18 Telmisartan [Micardis 40 mg Tablet] 40 mg PO DAILY 09/13/18 Vitamin E (Dl, Acetate) [Vitamin E 400 Unit Capsule] 400 unit PO DAILY 09/13/18 Acetaminophen [Tylenol 325 mg Tablet] 650 mg PO Q4HP PRN tablet 09/17/18 Apixaban [Eliquis 2.5 mg Tablet] 2.5 mg PO Q12 tablet 09/17/18 Bumetanide [Bumex 1 mg Tablet] 1 tab PO Q12 #60 tablet 09/17/18 Clopidogrel Bisulfate [Plavix 75 mg Tablet] 75 mg PO DAILY tablet 09/17/18 Eplerenone [Inspra 25 mg Tablet] 50 mg PO DAILY tablet 09/17/18 Escitalopram Oxalate [Lexapro 10 mg Tablet] 10 mg PO DAILY tablet 09/17/18 Finasteride [Proscar 5 mg Tablet] 5 mg PO DAILY tablet 09/17/18 Fluticasone Propionate [Flonase Nasal [place] 50 Mcg/[place] 16 gm] 2 spray NASL Q12 spray.pump 09/17/18 Metoprolol Succinate [Toprol Xl 25 mg Tab.sr] 12.5 mg PO DAILY #30 tab.sr.24h 09/17/18 Sennosides/Docusate 8.6-50 mg [Senna Plus Tablet] 1 each PO BIDP PRN #60 tablet 09/17/18 History of Present Illness History of Present Illness: Admitting hospitalist's H&P: ZAHIRA ROLLINS SR is a 88 year old male with a past medical history of congestive heart failure, atrial fibrillation, status post pacemaker, COPD with home oxygen dependence, obstructive sleep apnea and BPH. Patient presents with increasing shortness of breath associated with orthopnea and lower extremity edema over the last 2 weeks prompting evaluation in the emergency room where he was found to have a exacerbation of heart failure with pulmonary vascular congestion, BNP of 3700 and hypo-kalemia. He is ordered 80 mg of Lasix IV and referred to the hospitalist for admission. Patient denies chest pain palpitations nausea or vomiting. Admits compliance with medication and BiPAP however he denies recent change of medications but is also unaware of any dietary or fluid restrictions. Hospital Course Hospital Course: This is a 88 year old male with a past medical history of congestive heart failure, atrial fibrillation, S/P pacemaker, COPD with home oxygen dependence, obstructive sleep apnea and BPH who presented with increasing SOB and increasing pedal edema for the past 2 weeks. He was admitted for CHF exacerbation and was started on IV Lasix. He was also given bumex. He did slowly but gradually improved with IV diuresis. He returned to his baseline and ambulated on the hallways without difficulty. He did develop wheezing as well from his COPd and was started on oral steroids for mild COPD exacerbation. He was discharged on his home bumex regimen and a short course of oral steroids. Physical Exam Vital Signs: Temp Pulse Resp BP Pulse Ox 97.6 F 59 L 16 133/66 H 95 09/17/18 07:41 09/17/18 07:41 09/17/18 07:41 09/17/18 07:41 09/17/18 07:41 Intake & Output 09/16/18 09/17/18 09/18/18 06:59 06:59 06:59 Intake Total 1332 1500 Output Total 980 Balance 352 1500 Weight 207 lb 7.28 oz 211 lb 10.3 oz General appearance: PRESENT: no acute distress, well-developed, well-nourished Head exam: PRESENT: atraumatic, normocephalic Eye exam: PRESENT: conjunctiva pink, EOMI, PERRLA. ABSENT: scleral icterus Mouth exam: PRESENT: moist, tongue midline Neck exam: ABSENT: carotid bruit, JVD, lymphadenopathy, thyromegaly Respiratory exam: PRESENT: clear to auscultation regi. ABSENT: rales, rhonchi, wheezes Pulses: PRESENT: normal dorsalis pedis pul GI/Abdominal exam: PRESENT: normal bowel sounds, soft. ABSENT: guarding, mass, organolmegaly, rebound, tenderness Rectal exam: PRESENT: deferred Extremities exam: PRESENT: +1 edema Neurological exam: PRESENT: alert, awake, oriented to person, oriented to place, oriented to time, oriented to situation, CN II-XII grossly intact. ABSENT: motor sensory deficit Results Laboratory Results: 09/16/18 12:20 09/16/18 12:20 09/16/18 09/16/18 12:20 12:20 WBC 6.8 RBC 3.33 L Hgb 11.5 L Hct 33.1 L MCV 100 H MCH 34.5 H MCHC 34.7 RDW 13.5 Plt Count 207 Seg Neutrophils % 84.2 H Lymphocytes % 5.7 L Monocytes % 9.6 Eosinophils % 0.3 Basophils % 0.2 Absolute Neutrophils 5.7 Absolute Lymphocytes 0.4 L Absolute Monocytes 0.7 Absolute Eosinophils 0.0 Absolute Basophils 0.0 Sodium 139.7 Potassium 4.1 Chloride 102 Carbon Dioxide 27 Anion Gap 11 BUN 36 H Creatinine 1.14 Est GFR ( Amer) > 60 Est GFR (Non-Af Amer) > 60 Glucose 110 Calcium 10.0 09/12/18 09/12/18 09/12/18 16:05 16:05 20:55 Creatine Kinase 30 L CK-MB (CK-2) 1.27 Troponin I 0.017 0.019 NT-Pro-B Natriuret Pep 3790 H 09/13/18 09/13/18 09/13/18 03:00 03:00 09:21 Creatine Kinase 32 L 27 L CK-MB (CK-2) 1.13 Troponin I 0.042 NT-Pro-B Natriuret Pep 09/13/18 09/13/18 09/13/18 09:21 15:13 15:13 Creatine Kinase 32 L CK-MB (CK-2) 0.95 1.13 Troponin I 0.052 0.038 NT-Pro-B Natriuret Pep Impressions: Abdomen/Pelvis CT 09/12/18 00:00 IMPRESSION: 1. Gallstones with mild surrounding stranding although the gallbladder is contracted. Consider ultrasound for complete evaluation if clinically indicated. 2. Stable infrarenal abdominal aortic aneurysm status post stenting. 3. Diverticulosis without inflammatory changes. Chest X-Ray 09/16/18 00:00 IMPRESSION: Persistent cardiomegaly and mild pulmonary vascular congestion. Qualifiers - * PATIENT BEING DISCHARGED WITH ANY OF THE FOLLOWING DIAGNOSIS: No
== END 2018-09-17 13:30 | disposition home health service (06) | DRG 292 ==
LOC: ER 14:59 → EH 22:44 → 4W 23:44
PROVIDERS: ADMIT Internal Medicine; ATTEND Internal Medicine
DX: I11.0 Hypertensive heart disease with heart failure (principal); J96.10 Chronic respiratory failure, unspecified whether with hypoxia or hypercapnia; I50.30 Unspecified diastolic (congestive) heart failure; E87.6 Hypokalemia; I48.91 Unspecified atrial fibrillation; J44.9 Chronic obstructive pulmonary disease, unspecified; Z99.81 Dependence on supplemental oxygen; G47.33 Obstructive sleep apnea (adult) (pediatric); N40.0 Benign prostatic hyperplasia without lower urinary tract symptoms; I25.10 Atherosclerotic heart disease of native coronary artery without angina pectoris; K21.9 Gastro-esophageal reflux disease without esophagitis; M19.90 Unspecified osteoarthritis, unspecified site; F32.9 Major depressive disorder, single episode, unspecified; D64.9 Anemia, unspecified; Z79.02 Long term (current) use of antithrombotics/antiplatelets; Z79.899 Other long term (current) drug therapy; Z95.1 Presence of aortocoronary bypass graft; I25.2 Old myocardial infarction; Z85.828 Personal history of other malignant neoplasm of skin; Z87.891 Personal history of nicotine dependence
CPT/HCPCS: 36415; 71045; 71046; 74177; 80048; 80053; 82550; 82553; 82803; 83735; 83880; 84443; 84484; 85025; 93005; 93010; 94640; 96374; 99285; J0360; J1940; J3480; J3490; J7512

== ENCOUNTER → 2018-11-14 | Outpatient (CLI) | payer MEDICARE, BC ==
[2018-11-14 16:21] LABS: HEMOGLOBIN 12.1 g/dL (13.5-17.0); MEAN CORPUSCULAR HEMOGLOBIN 34.4 pg (27.0-33.4); MEAN CORPUSCULAR HGB CONC 35.6 g/dL (32.0-36.0); MEAN CORPUSCULAR VOLUME 97 fl (80-97); PLATELET COUNT 137 10^3/uL (150-450); RED BLOOD COUNT 3.52 10^6/uL (4.35-5.55); RED CELL DISTRIBUTION WIDTH 14.1 % (11.5-14.0); WHITE BLOOD COUNT 4.9 10^3/uL (4.0-10.5)
[2018-11-14 16:33] LABS: APPEARANCE,URINE CLEAR; BILIRUBIN,URINE NEGATIVE (NEGATIVE); COLOR,URINE YELLOW; GLUCOSE, URINE NEGATIVE (NEGATIVE); KETONES,URINE NEGATIVE (NEGATIVE); LEUKOCYTE ESTERASE,URINE NEGATIVE (NEGATIVE); NITRITE,URINE NEGATIVE (NEGATIVE); PROTEIN,URINE NEGATIVE (NEGATIVE); URINE SPECIFIC GRAVITY 1.008; UROBILINOGEN,URINE NEGATIVE mg/dL (<2.0)
[2018-11-14 16:37] LABS: ALANINE AMINOTRANSFERASE 31 U/L (21-72); ALBUMIN 4.5 g/dL (3.5-5.0); ALKALINE PHOSPHATASE 78 U/L (38-126); ANION GAP 12 (5-19); ASPARTATE AMINO TRANSFERASE 23 U/L (17-59); BILIRUBIN,DIRECT 0.2 mg/dL (0.0-0.4); BILIRUBIN,TOTAL 0.5 mg/dL (0.2-1.3); BLOOD UREA NITROGEN 39 mg/dL (7-20); CALCIUM 10.3 mg/dL (8.4-10.2); CARBON DIOXIDE 26 mmol/L (22-30); CHLORIDE 101 mmol/L (98-107); GLUCOSE 157 mg/dL (75-110); POTASSIUM 4.3 mmol/L (3.6-5.0); SODIUM 138.7 mmol/L (137-145); TOTAL PROTEIN 7.6 g/dL (6.3-8.2)
== END ==
LOC: OD 15:16 → MERGE 15:16
PROVIDERS: ATTEND Physician Assistant
DX: I50.9 Heart failure, unspecified (principal); I48.0 Paroxysmal atrial fibrillation; Z79.01 Long term (current) use of anticoagulants; Z79.899 Other long term (current) drug therapy
CPT/HCPCS: 36415; 80048; 80076; 81001; 82272; 83880; 85027; 85730

== ENCOUNTER → 2018-11-30 | Outpatient (CLI) | payer MEDICARE, BC ==
[2018-11-30 09:33] LABS: CHOLESTEROL 113.56 mg/dL (0-200); PHOSPHORUS 3.9 mg/dL (2.5-4.5); TRIGLYCERIDES 120 mg/dL (<150)
[2018-11-30 09:44] LABS: DIRECT LDL 55 mg/dL (<100)
[2018-12-01 11:37] LABS: CREATININE URINE 39.3 mg/dL (Not Estab.)
== END ==
LOC: OD 08:13
PROVIDERS: ATTEND Internal Medicine Nephrology
DX: I12.9 Hypertensive chronic kidney disease with stage 1 through stage 4 chronic kidney disease, or unspecified chronic kidney disease (principal); N18.3 Chronic kidney disease, stage 3 (moderate); D63.1 Anemia in chronic kidney disease; E78.5 Hyperlipidemia, unspecified; R73.03 Prediabetes; I25.10 Atherosclerotic heart disease of native coronary artery without angina pectoris
CPT/HCPCS: 36415; 80061; 82043; 82306; 82570; 83036; 83970; 84100

== ENCOUNTER → 2019-01-04 | Outpatient (CLI) | payer MEDICARE, BC ==
--- NOTE | 2019-01-04 17:57 | RADIOLOGY REPORT (SQ) ---
EXAM DESCRIPTION: U/S SCROTUM W/DOPPLER COMPLETED DATE/TIME: 01/04/2019 4:51 pm REASON FOR STUDY: HYDROCELE N43.3 HYDROCELE, UNSPECIFIED COMPARISON: None. TECHNIQUE: Static and realtime jeffrey scale imaging of the scrotum and testes. Selected color Doppler and spectral images recorded to document blood flow. LIMITATIONS: None. FINDINGS: RIGHT: TESTICLE: Normal size for age, 2.9 x 2.4 x 2.2 cm. Normal echotexture. Normal blood flow. No mass. EPIDIDYMIS: Normal, 12 mm. HYDROCELE OR VARICOCELE: No. HERNIA OR EXTRA-TESTICULAR MASS: No. OTHER: No other significant finding. LEFT: TESTICLE: Normal size for age, 3.2 x 2.9 x 2.2 cm. Normal echotexture. Normal blood flow. No mass. EPIDIDYMIS: Normal, 14 mm. 6 mm epididymal cyst. HYDROCELE OR VARICOCELE: There is a prominent hydrocele a contains mobile debris. HERNIA OR EXTRA-TESTICULAR MASS: No. OTHER: No other significant finding. IMPRESSION: 1. Left hydrocele with debris within it. May represent a pyocoele or hematocele. 2. Small left epididymal cyst. TECHNICAL DOCUMENTATION: JOB ID: [id number] [employer]- All Rights Reserved Reading location - IP/workstation name: [email or web address]
== END ==
LOC: RAD 15:57
PROVIDERS: ATTEND Urology
DX: N43.3 Hydrocele, unspecified (principal)
CPT/HCPCS: 76870; 93976

== ENCOUNTER → 2019-01-18 | Outpatient (CLI) | payer MEDICARE, BC ==
[2019-01-18 14:15] LABS: ANION GAP 14 (5-19); BLOOD UREA NITROGEN 34 mg/dL (7-20); CALCIUM 9.9 mg/dL (8.4-10.2); CARBON DIOXIDE 27 mmol/L (22-30); CHLORIDE 100 mmol/L (98-107); GLUCOSE 95 mg/dL (75-110); POTASSIUM 4.4 mmol/L (3.6-5.0); SODIUM 140.7 mmol/L (137-145)
== END ==
LOC: OD 13:17
PROVIDERS: ATTEND Internal Medicine Cardiovascular Disease
DX: I50.9 Heart failure, unspecified (principal); I10 Essential (primary) hypertension; I11.0 Hypertensive heart disease with heart failure
CPT/HCPCS: 36415; 80048; 83880

== ENCOUNTER → 2019-02-18 | Outpatient (CLI) | payer MEDICARE, BC ==
[2019-02-18 11:02] LABS: HEMATOCRIT 35.5 % (37.9-51.0); HEMOGLOBIN 12.2 g/dL (13.5-17.0); MEAN CORPUSCULAR HEMOGLOBIN 33.9 pg (27.0-33.4); MEAN CORPUSCULAR HGB CONC 34.4 g/dL (32.0-36.0); MEAN CORPUSCULAR VOLUME 99 fl (80-97); PLATELET COUNT 169 10^3/uL (150-450); RED BLOOD COUNT 3.59 10^6/uL (4.35-5.55); RED CELL DISTRIBUTION WIDTH 14.3 % (11.5-14.0); WHITE BLOOD COUNT 4.4 10^3/uL (4.0-10.5)
[2019-02-18 11:11] LABS: APPEARANCE,URINE CLEAR; BILIRUBIN,URINE NEGATIVE (NEGATIVE); COLOR,URINE YELLOW; GLUCOSE, URINE NEGATIVE (NEGATIVE); KETONES,URINE NEGATIVE (NEGATIVE); LEUKOCYTE ESTERASE,URINE NEGATIVE (NEGATIVE); NITRITE,URINE NEGATIVE (NEGATIVE); PROTEIN,URINE NEGATIVE (NEGATIVE); URINE SPECIFIC GRAVITY 1.012; UROBILINOGEN,URINE NEGATIVE mg/dL (<2.0)
[2019-02-18 11:26] LABS: ALANINE AMINOTRANSFERASE 27 U/L (21-72); ALBUMIN 4.2 g/dL (3.5-5.0); ALKALINE PHOSPHATASE 81 U/L (38-126); ANION GAP 13 (5-19); ASPARTATE AMINO TRANSFERASE 24 U/L (17-59); BILIRUBIN,DIRECT 0.3 mg/dL (0.0-0.4); BILIRUBIN,TOTAL 0.7 mg/dL (0.2-1.3); BLOOD UREA NITROGEN 50 mg/dL (7-20); CALCIUM 9.8 mg/dL (8.4-10.2); CARBON DIOXIDE 26 mmol/L (22-30); CHLORIDE 104 mmol/L (98-107); GLUCOSE 97 mg/dL (75-110); POTASSIUM 4.3 mmol/L (3.6-5.0); SODIUM 143.2 mmol/L (137-145); TOTAL PROTEIN 7.8 g/dL (6.3-8.2)
[2019-02-19 12:32] LABS: TRIGLYCERIDES 142 mg/dL (<150)
[2019-02-19 12:43] LABS: DIRECT LDL 53 mg/dL (<100)
== END ==
LOC: OD 09:28
PROVIDERS: ATTEND Internal Medicine Cardiovascular Disease
DX: E78.2 Mixed hyperlipidemia (principal); I50.9 Heart failure, unspecified; I48.2 Chronic atrial fibrillation; Z79.01 Long term (current) use of anticoagulants; Z79.899 Other long term (current) drug therapy
CPT/HCPCS: 36415; 80048; 80061; 80076; 81001; 82272; 83880; 85027; 85730

== ENCOUNTER → 2019-02-22 | Outpatient (CLI) | payer MEDICARE, BC ==
[2019-02-22 11:08] LABS: ABSOLUTE EOSINOPHILS # (AUTO) 0.1 10^3/uL (0.0-0.6); ABSOLUTE LYMPHOCYTES (AUTO) 0.6 10^3/uL (0.5-4.7); ABSOLUTE MONOCYTES (AUTO) 0.8 10^3/uL (0.1-1.4); ABSOLUTE NEUT (AUTO) 3.8 10^3/uL (1.7-8.2); BASOPHILS % (AUTO) 0.8 % (0-2); EOSINOPHILS % (AUTO) 2.2 % (0-6); HEMATOCRIT 35.9 % (37.9-51.0); HEMOGLOBIN 12.3 g/dL (13.5-17.0); MEAN CORPUSCULAR HEMOGLOBIN 33.6 pg (27.0-33.4); MEAN CORPUSCULAR HGB CONC 34.1 g/dL (32.0-36.0); MEAN CORPUSCULAR VOLUME 98 fl (80-97); MONOCYTES % (AUTO) 14.2 % (3-13); PLATELET COUNT 153 10^3/uL (150-450); RED BLOOD COUNT 3.65 10^6/uL (4.35-5.55); RED CELL DISTRIBUTION WIDTH 14.5 % (11.5-14.0); SEGMENTED NEUTROPHILS % (AUTO) 70.8 % (42-78); TOTAL CELLS COUNTED % (AUTO) 100 %; WHITE BLOOD COUNT 5.4 10^3/uL (4.0-10.5)
[2019-02-22 11:53] LABS: APPEARANCE,URINE CLEAR; BILIRUBIN,URINE NEGATIVE (NEGATIVE); COLOR,URINE YELLOW; GLUCOSE, URINE NEGATIVE (NEGATIVE); KETONES,URINE NEGATIVE (NEGATIVE); LEUKOCYTE ESTERASE,URINE NEGATIVE (NEGATIVE); NITRITE,URINE NEGATIVE (NEGATIVE); PROTEIN,URINE NEGATIVE (NEGATIVE); URINE SPECIFIC GRAVITY 1.014; UROBILINOGEN,URINE NEGATIVE mg/dL (<2.0)
[2019-02-22 13:32] LABS: ALANINE AMINOTRANSFERASE 26 U/L (21-72); ALBUMIN 4.4 g/dL (3.5-5.0); ALKALINE PHOSPHATASE 95 U/L (38-126); ANION GAP 12 (5-19); ASPARTATE AMINO TRANSFERASE 24 U/L (17-59); BILIRUBIN,DIRECT 0.4 mg/dL (0.0-0.4); BILIRUBIN,TOTAL 0.9 mg/dL (0.2-1.3); BLOOD UREA NITROGEN 50 mg/dL (7-20); CARBON DIOXIDE 26 mmol/L (22-30); CHLORIDE 101 mmol/L (98-107); CHOLESTEROL 123.13 mg/dL (0-200); GLUCOSE 108 mg/dL (75-110); IRON(TIBC) 93.6 ug/dL (49-181); PHOSPHORUS 3.9 mg/dL (2.5-4.5); POTASSIUM 4.2 mmol/L (3.6-5.0); SODIUM 139.3 mmol/L (137-145); TOTAL PROTEIN 8.3 g/dL (6.3-8.2); TRIGLYCERIDES 139 mg/dL (<150)
[2019-02-22 13:43] LABS: DIRECT LDL 55 mg/dL (<100)
[2019-02-23 12:37] LABS: CREATININE URINE 77.4 mg/dL (Not Estab.); MICROALBUMIN URINE 6.7 ug/mL (Not Estab.)
== END ==
LOC: OD 10:24
PROVIDERS: ATTEND Internal Medicine Nephrology
DX: N18.3 Chronic kidney disease, stage 3 (moderate) (principal); I12.9 Hypertensive chronic kidney disease with stage 1 through stage 4 chronic kidney disease, or unspecified chronic kidney disease; R73.03 Prediabetes; D63.1 Anemia in chronic kidney disease
CPT/HCPCS: 36415; 80053; 80061; 81001; 82043; 82306; 82570; 82728; 83036; 83540; 83550; 83970; 84100; 85025

== ENCOUNTER 2019-03-19 07:14 | Emergency (ER) | payer MEDICARE, BC ==
[2019-03-19 08:05] LABS: ABSOLUTE EOSINOPHILS # (AUTO) 0.1 10^3/uL (0.0-0.6); ABSOLUTE LYMPHOCYTES (AUTO) 0.6 10^3/uL (0.5-4.7); ABSOLUTE MONOCYTES (AUTO) 1.1 10^3/uL (0.1-1.4); ABSOLUTE NEUT (AUTO) 8.1 10^3/uL (1.7-8.2); BASOPHILS % (AUTO) 0.4 % (0-2); HEMATOCRIT 35.7 % (37.9-51.0); HEMOGLOBIN 12.5 g/dL (13.5-17.0); LYMPHOCYTES % (AUTO) 5.7 % (13-45); MEAN CORPUSCULAR HEMOGLOBIN 33.8 pg (27.0-33.4); MEAN CORPUSCULAR VOLUME 97 fl (80-97); MONOCYTES % (AUTO) 11.4 % (3-13); PLATELET COUNT 167 10^3/uL (150-450); RED CELL DISTRIBUTION WIDTH 14.1 % (11.5-14.0); SEGMENTED NEUTROPHILS % (AUTO) 81.5 % (42-78); TOTAL CELLS COUNTED % (AUTO) 100 %; WHITE BLOOD COUNT 9.9 10^3/uL (4.0-10.5)
[2019-03-19 08:13] LABS: ALANINE AMINOTRANSFERASE 21 U/L (21-72); ALBUMIN 3.8 g/dL (3.5-5.0); ALKALINE PHOSPHATASE 90 U/L (38-126); ANION GAP 10 (5-19); ASPARTATE AMINO TRANSFERASE 25 U/L (17-59); BILIRUBIN,DIRECT 0.2 mg/dL (0.0-0.4); BILIRUBIN,TOTAL 0.7 mg/dL (0.2-1.3); BLOOD UREA NITROGEN 59 mg/dL (7-20); CALCIUM 9.7 mg/dL (8.4-10.2); CARBON DIOXIDE 27 mmol/L (22-30); CHLORIDE 100 mmol/L (98-107); GLUCOSE 102 mg/dL (75-110); INTERNATIONAL RATION (INR) 1.13; POTASSIUM 4.6 mmol/L (3.6-5.0); PROTHROMBIN TIME 14.6 SEC (11.4-15.4); SODIUM 136.7 mmol/L (137-145); TOTAL PROTEIN 7.2 g/dL (6.3-8.2)
[2019-03-19] MEDS ORDERED: OXYCODONE-ACETAMINOPHEN 5-325 MG TABLET PO ONE (08:54)
--- NOTE | 2019-03-19 09:00 | ER Document Report ---
ED Extremity Problem, Lower - General Chief Complaint: Leg Pain Stated Complaint: ABDOMINAL PAIN Time Seen by Provider: 03/19/19 08:35 Primary Care Provider: MARY ANN SIM MD [Primary Care Provider] - Follow up as needed TRAVEL OUTSIDE OF THE [place] IN LAST 30 DAYS: No - HPI Notes: Patient is a 88-year-old male that presents to the emergency department for chief complaint of right hip pain. Patient states yesterday afternoon he started having some aching in his right hip. He had a difficult time sleeping last night because of the pain. He states anytime he contracts his muscles he has muscle spasm in his leg and hip. He states it is a sharp pain that radiates from his anterior thigh into his hip and around into his buttocks. He reports similar symptoms with an episode of sciatica on the left. He states he did fall on his right side 2 weeks ago but was not having any pain in this hip until yesterday. Patient denies any lower extremity swelling numbness or weakness. He states the pain almost completely resolves when he is holding still. He denies any associated chest pain, palpitations, shortness of breath, abdominal pain, nausea/vomiting, urinary complaints and fevers. Past Medical History: Atrial fibrillation, COPD, hypertension, CKD, CAD Past Surgical History: Pacemaker Social History: Denies drugs alcohol and tobacco use Family History: Reviewed and noncontributory for presenting illness Allergies: Reviewed, see documented allergy list. REVIEW OF SYSTEMS: CONSTITUTIONAL : No fever No chills No diaphoresis No recent illness EENT: No vision changes No congestion No sore throat CARDIOVASCULAR: No chest pain No palpitations RESPIRATORY: No shortness of breath No cough No difficulty breathing GASTROINTESTINAL: No abdominal pain No nausea No vomiting No diarrhea GENITOURINARY: No dysuria No hematuria No difficulty urinating MUSCULOSKELETAL: No back pain Right hip and leg pain No arm pain SKIN: No rashes No lesions LYMPHATIC: No swollen, enlarged glands. NEUROLOGICAL: No lightheadedness No headache No weakness No paresthesias PSYCHIATRIC: No anxiety No depression PHYSICAL EXAMINATION: Vital signs reviewed, nursing noted reviewed. GENERAL: Well-appearing, well-nourished and in no acute distress. HEAD: Atraumatic, normocephalic. EYES: Eyes appear normal, extraocular movements intact, sclera anicteric, conjunctiva are normal. ENT: nares patent, oropharynx clear without exudates. Moist mucous membranes. NECK: Normal range of motion, supple without lymphadenopathy LUNGS: Breath sounds diminished to auscultation bilaterally and equal. No wheezes rales or rhonchi. HEART: Regular rate and rhythm without murmurs ABDOMEN: Protuberant, soft, nontender, normoactive bowel sounds. No rebound, guarding, or rigidity. No masses appreciated. EXTREMITIES: Pelvis stable. Right hip tenderness to palpation without deformity, no pain with passive range of motion, sharp pain in anterior right thigh and right hip with active range of motion, no pain with logroll of the r ight hip. no pitting or edema. NEUROLOGICAL: No focal neurological deficits. Moves all extremities spontaneously Motor and sensory grossly intact on exam. PSYCH: Normal mood, normal affect. SKIN: Warm, Dry, normal turgor, no rashes or lesions noted on exposed skin - Related Data Allergies/Adverse Reactions: No Known Allergies Allergy (Verified 11/15/18 12:43) Past Medical History - Social History Smoking Status: Unknown if Ever Smoked Family History: COPD Patient has suicidal ideation: No Patient has homicidal ideation: No - Past Medical History Cardiac Medical History: Reports: Hx Atrial Fibrillation, Hx Congestive Heart Failure - Diastolic dysfunction, Hx Coronary Artery Disease - CAROIDECTOMY LEFT SIDE, Hx Heart Attack, Hx Hypercholesterolemia, Hx Hypertension, Hx Peripheral Vascular Disease Pulmonary Medical History: Reports: Hx Asthma, Hx Bronchitis, Hx COPD, Hx Pneumonia, Hx Sleep Apnea - On CPAP at home Neurological Medical History: Denies: Hx Seizures Renal/ Medical History: Reports: Hx Benign Prostatic Hyperplasia. Denies: Hx Peritoneal Dialysis Malignancy Medical History: Reports Hx Skin Cancer GI Medical History: Reports: Hx Gastroesophageal Reflux Disease Musculoskeletal Medical History: Reports Hx Arthritis Psychiatric Medical History: Reports: Hx Depression Past Surgical History: Reports: Hx Cardiac Surgery - quad. bypass in , Hx Coronary Artery Bypass Graft, Hx Pacemaker - medtronic, Hx Vascular Surgery - Left carotid endarterectomy. Endovascular AAA repair - Immunizations Immunizations up to date: Yes Hx Diphtheria, Pertussis, Tetanus Vaccination: Yes Hx Pneumococcal Vaccination: 07/11/17 Physical Exam - Vital signs Vitals: Resp Pulse Ox 17 94 03/19/19 07:34 03/19/19 07:34 Course - Re-evaluation Re-evalutation: 03/19/19 08:58 Vitals reviewed. Nursing notes reviewed. Patient is alert and nontoxic in appearance. His vital signs are stable. He is oxygenating well on his home nasal cannula oxygen settings. His pain is reproduced with active movement of the right lower extremity but not significantly reproduced with any passive range of motion suggesting a more muscular cause of his symptoms. His lab work shows slight elevation in BUN and creatinine which is chronic for this patient. He has no leukocytosis to suggest underlying infection. Patient was given Per cocet for pain. He has not had imaging of his hip and x-ray will be ordered. 03/19/19 10:28 On reevaluation patient states he is feeling much better. He is able to lift his right leg off the table through full range of motion. He has normal strength in his lower extremities. X-ray shows no acute process in the hip and I am not suspicious at this point for occult fracture. Patient is able to stand and ambulate. Chart review shows he is on Lipitor which may be causing his muscle cramping, I advised he talk to his primary care doctor about his medications. He was counseled on return precautions. He is stable for discharge. Laboratory 03/19/19 03/19/19 03/19/19 07:25 07:25 07:25 WBC 9.9 RBC 3.70 L Hgb 12.5 L Hct 35.7 L MCV 97 MCH 33.8 H MCHC 35.0 RDW 14.1 H Plt Count 167 Seg Neutrophils % 81.5 H Lymphocytes % 5.7 L Monocytes % 11.4 Eosinophils % 1.0 Basophils % 0.4 Absolute Neutrophils 8.1 Absolute Lymphocytes 0.6 Absolute Monocytes 1.1 Absolute Eosinophils 0.1 Absolute Basophils 0.0 PT 14.6 INR 1.13 Sodium 136.7 L Potassium 4.6 Chloride 100 Carbon Dioxide 27 Anion Gap 10 BUN 59 H Creatinine 1.99 H Est GFR ( Amer) 39 L Est GFR (Non-Af Amer) 32 L Glucose 102 Calcium 9.7 Total Bilirubin 0.7 Direct Bilirubin 0.2 Neonat Total Bilirubin Not Reportable Neonat Direct Bilirubin Not Reportable Neonat Indirect Bili Not Reportable AST 25 ALT 21 Alkaline Phosphatase 90 Total Protein 7.2 Albumin 3.8 Hip/Pelvis X-Ray 03/19/19 08:54 IMPRESSION: NEGATIVE STUDY OF THE RIGHT HIP. NO RADIOGRAPHIC EVIDENCE OF ACUTE INJURY. - Vital Signs Vital signs: Temp Pulse Resp BP Pulse Ox 98.5 F 94 17 120/50 L 92 03/19/19 07:52 03/19/19 07:50 03/19/19 08:01 03/19/19 08:00 03/19/19 08:01 - Laboratory Result Diagrams: 03/19/19 07:25 03/19/19 07:25 Laboratory results interpreted by me: 03/19/19 03/19/19 07:25 07:25 RBC 3.70 L Hgb 12.5 L Hct 35.7 L MCH 33.8 H RDW 14.1 H Seg Neutrophils % 81.5 H Lymphocytes % 5.7 L Sodium 136.7 L BUN 59 H Creatinine 1.99 H Est GFR ( Amer) 39 L Est GFR (Non-Af Amer) 32 L Discharge - Discharge Clinical Impression: Right hip pain Condition: Stable Disposition: HOME, SELF-CARE Instructions: Myalagia (Muscle Pain) ([facility]) Additional Instructions: Please return to the emergency department if you have any worsening, or concern of your symptoms. Please return to the emergency department if you develop chest pain, difficulty breathing, severe abdominal pain, or ongoing vomiting. Please follow-up with your primary care physician in 2-3 days and any other recommended physicians. If prescribed, take all medications as directed. If you have any questions or concerns do not hesitate to return the emergency department for evaluation. Referrals: AMINTA HOLT MD [EMERITUS] - Follow up as needed MARY ANN SIM MD [Primary Care Provider] - Follow up in 3-5 days
--- NOTE | 2019-03-19 09:44 | RADIOLOGY REPORT (SQ) ---
EXAM DESCRIPTION: HIP RIGHT AP/LATERAL COMPLETED DATE/TIME: 03/19/2019 9:16 am REASON FOR STUDY: hip pain COMPARISON: None. NUMBER OF VIEWS: Two views. TECHNIQUE: AP pelvis and additional frog-leg view of the right hip. LIMITATIONS: None. FINDINGS: MINERALIZATION: Normal. RIGHT HIP: No fracture or dislocation. No worrisome bone lesions. LEFT HIP: No fracture or dislocation. No worrisome bone lesions. PUBIS AND ISCHIUM: No fracture. PELVIS: No fracture. SACRUM: No fracture or dislocation. No worrisome bone lesions. LOWER LUMBAR SPINE: No fracture or dislocation. No worrisome bone lesions. No significant disc disea se. SOFT TISSUES: Bilateral iliac artery stents are present OTHER: No other significant finding. IMPRESSION: NEGATIVE STUDY OF THE RIGHT HIP. NO RADIOGRAPHIC EVIDENCE OF ACUTE INJURY. TECHNICAL DOCUMENTATION: JOB ID: [id number] [employer]- All Rights Reserved Reading location - IP/workstation name: [email or web address]
[2019-03-19 10:58] VITALS: BP 125/49
== END 2019-03-19 10:58 | disposition home or self-care (01) ==
LOC: ER 07:14
DX: M25.551 Pain in right hip (principal); R10.9 Unspecified abdominal pain; M62.838 Other muscle spasm; J44.9 Chronic obstructive pulmonary disease, unspecified; I13.0 Hypertensive heart and chronic kidney disease with heart failure and stage 1 through stage 4 chronic kidney disease, or unspecified chronic kidney disease; N18.9 Chronic kidney disease, unspecified; I50.32 Chronic diastolic (congestive) heart failure
CPT/HCPCS: 99284; 36415; 85025; 85610; 80053; 73502; A9270

== ENCOUNTER → 2019-05-28 | Outpatient (CLI) | payer MEDICARE, BC ==
[2019-05-28 10:07] LABS: APPEARANCE,URINE CLEAR; BILIRUBIN,URINE NEGATIVE (NEGATIVE); COLOR,URINE COLORLESS; GLUCOSE, URINE NEGATIVE (NEGATIVE); KETONES,URINE NEGATIVE (NEGATIVE); LEUKOCYTE ESTERASE,URINE NEGATIVE (NEGATIVE); NITRITE,URINE NEGATIVE (NEGATIVE); PROTEIN,URINE NEGATIVE (NEGATIVE); UROBILINOGEN,URINE NEGATIVE mg/dL (<2.0)
[2019-05-28 10:11] LABS: URINE SPECIFIC GRAVITY 1.022
[2019-05-28 10:20] LABS: HEMATOCRIT 34.6 % (37.9-51.0); MEAN CORPUSCULAR HEMOGLOBIN 34.2 pg (27.0-33.4); MEAN CORPUSCULAR HGB CONC 34.5 g/dL (32.0-36.0); MEAN CORPUSCULAR VOLUME 99 fl (80-97); PLATELET COUNT 165 10^3/uL (150-450); RED BLOOD COUNT 3.49 10^6/uL (4.35-5.55); RED CELL DISTRIBUTION WIDTH 14.7 % (11.5-14.0)
[2019-05-28 10:31] LABS: ALBUMIN 4.3 g/dL (3.5-5.0); ALKALINE PHOSPHATASE 66 U/L (38-126); ANION GAP 11 (5-19); ASPARTATE AMINO TRANSFERASE 25 U/L (17-59); BILIRUBIN,DIRECT 0.2 mg/dL (0.0-0.4); BILIRUBIN,TOTAL 0.9 mg/dL (0.2-1.3); BLOOD UREA NITROGEN 39 mg/dL (7-20); CALCIUM 9.9 mg/dL (8.4-10.2); CARBON DIOXIDE 27 mmol/L (22-30); CHLORIDE 102 mmol/L (98-107); GLUCOSE 98 mg/dL (75-110); POTASSIUM 4.2 mmol/L (3.6-5.0); TOTAL PROTEIN 7.7 g/dL (6.3-8.2)
== END ==
LOC: OD 08:43
PROVIDERS: ATTEND Internal Medicine Cardiovascular Disease
DX: I48.2 Chronic atrial fibrillation (principal); Z79.01 Long term (current) use of anticoagulants; Z79.899 Other long term (current) drug therapy
CPT/HCPCS: 36415; 80048; 80076; 81001; 82272; 85027; 85730

== ENCOUNTER 2019-08-17 13:04 | Emergency (ER) | payer MEDICARE, BC ==
[2019-08-17 13:42] LABS: ABSOLUTE EOSINOPHILS # (AUTO) 0.1 10^3/uL (0.0-0.6); ABSOLUTE LYMPHOCYTES (AUTO) 0.5 10^3/uL (0.5-4.7); ABSOLUTE MONOCYTES (AUTO) 0.9 10^3/uL (0.1-1.4); ABSOLUTE NEUT (AUTO) 3.8 10^3/uL (1.7-8.2); BASOPHILS % (AUTO) 0.5 % (0-2); EOSINOPHILS % (AUTO) 1.6 % (0-6); HEMATOCRIT 36.5 % (37.9-51.0); HEMOGLOBIN 12.4 g/dL (13.5-17.0); LYMPHOCYTES % (AUTO) 8.6 % (13-45); MEAN CORPUSCULAR HGB CONC 33.9 g/dL (32.0-36.0); MEAN CORPUSCULAR VOLUME 100 fl (80-97); MONOCYTES % (AUTO) 16.6 % (3-13); PLATELET COUNT 149 10^3/uL (150-450); RED BLOOD COUNT 3.63 10^6/uL (4.35-5.55); RED CELL DISTRIBUTION WIDTH 14.2 % (11.5-14.0); SEGMENTED NEUTROPHILS % (AUTO) 72.7 % (42-78); TOTAL CELLS COUNTED % (AUTO) 100 %; WHITE BLOOD COUNT 5.3 10^3/uL (4.0-10.5)
[2019-08-17 14:02] LABS: ALBUMIN 4.2 g/dL (3.5-5.0); ALKALINE PHOSPHATASE 82 U/L (38-126); ANION GAP 11 (5-19); ASPARTATE AMINO TRANSFERASE 27 U/L (17-59); BILIRUBIN,DIRECT 0.2 mg/dL (0.0-0.4); BILIRUBIN,TOTAL 0.8 mg/dL (0.2-1.3); BLOOD UREA NITROGEN 45 mg/dL (7-20); CARBON DIOXIDE 26 mmol/L (22-30); CHLORIDE 103 mmol/L (98-107); CREATINE KINASE 42 U/L (55-170); GLUCOSE 114 mg/dL (75-110); TOTAL PROTEIN 8.1 g/dL (6.3-8.2)
[2019-08-17 14:14] LABS: CREATINE KINASE MB 1.48 ng/mL (<4.55); TROPONIN I 0.022 ng/mL
--- NOTE | 2019-08-17 14:26 | RADIOLOGY REPORT (SQ) ---
EXAM DESCRIPTION: CHEST SINGLE VIEW COMPLETED DATE/TIME: 08/17/2019 2:02 pm REASON FOR STUDY: sob, cough COMPARISON: 09/16/2018 NUMBER OF VIEWS: One view. TECHNIQUE: Single frontal radiographic view of the chest acquired. LIMITATIONS: None. FINDINGS: LUNGS AND PLEURA: No opacities, masses or pneumothorax. No pleural effusion. MEDIASTINUM AND HILAR STRUCTURES: No masses or contour abnormality. HEART AND VASCULATURE: Cardiac enlargement. Vascular congestion. BONES: No acute findings. HARDWARE: CABG. Pacemaker. OTHER: No other significant finding. IMPRESSION: CARDIAC ENLARGEMENT. VASCULAR CONGESTION. TECHNICAL DOCUMENTATION: JOB ID: [id number] [employer]- All Rights Reserved Reading location - IP/workstation name: [email or web address]
[2019-08-17] MEDS ORDERED: IPRATROPIUM/ALBUTEROL 0.5-2.5 MG/3 ML AMPUL NEB ONE (14:32)
[2019-08-17] MEDS ORDERED: METHYLPREDNISOLONE INJ 125 MG/2 ML SDV IV ONE (14:33)
[2019-08-17 14:59] LABS: APPEARANCE,URINE CLEAR; BILIRUBIN,URINE NEGATIVE (NEGATIVE); COLOR,URINE YELLOW; GLUCOSE, URINE NEGATIVE (NEGATIVE); KETONES,URINE NEGATIVE (NEGATIVE); LEUKOCYTE ESTERASE,URINE NEGATIVE (NEGATIVE); NITRITE,URINE NEGATIVE (NEGATIVE); PROTEIN,URINE NEGATIVE (NEGATIVE); URINE SPECIFIC GRAVITY 1.008; UROBILINOGEN,URINE NEGATIVE mg/dL (<2.0)
--- NOTE | 2019-08-17 16:42 | ER Document Report ---
Entered by BESSIE MARTINEZ SCRIBE 08/17/19 1415 Acting as scribe for:MANDI BANKS IV, MD ED Respiratory Problem - General Chief Complaint: Shortness Of Breath Stated Complaint: BREATHING PROBLEMS Primary Care Provider: MARY ANN SIM MD [Primary Care Provider] - Follow up as needed Information source: Patient Notes: This 89 year old male patient with COPD and asthma presents to the emergency department today with complaints of shortness of breath. Patient states that this morning prior to arrival his home oxygen meter was giving him a reading of low 80s. Patient is on oxygen 24 hours a day for his COPD and asthma. Patient states that he began having nasal congestion x3-4 nights ago and was bringing up lots of sputum with his cough as well. TRAVEL OUTSIDE OF THE [place] IN LAST 30 DAYS: No - Related Data Allergies/Adverse Reactions: No Known Allergies Allergy (Verified 11/15/18 12:43) Past Medical History - General Information source: Patient, [facility] Records - Social History Smoking Status: Former Smoker Cigarette use (# per day): No Frequency of alcohol use: None Drug Abuse: None Lives with: Family Family History: Reviewed & Not Pertinent, COPD Patient has suicidal ideation: No Patient has homicidal ideation: No - Past Medical History Cardiac Medical History: Reports: Hx Atrial Fibrillation, Hx Congestive Heart Failure - Diastolic dysfunction, Hx Coronary Artery Disease - CAROIDECTOMY LEFT SIDE, Hx Heart Attack, Hx Hypercholesterolemia, Hx Hypertension, Hx Peripheral Vascular Disease Pulmonary Medical History: Reports: Hx Asthma, Hx Bronchitis, Hx COPD, Hx Pneumonia, Hx Sleep Apnea - On CPAP at home Renal/ Medical History: Reports: Hx Benign Prostatic Hyperplasia. Denies: Hx Peritoneal Dialysis Malignancy Medical History: Reports Hx Skin Cancer GI Medical History: Reports: Hx Gastroesophageal Reflux Disease Musculoskeletal Medical History: Reports Hx Arthritis Psychiatric Medical History: Reports: Hx Depression Past Surgical History: Reports: Hx Cardiac Surgery - quad. bypass in 08, Hx Coronary Artery Bypass Graft, Hx Pacemaker - medtronic, Hx Vascular Surgery - Left carotid endarterectomy. Endovascular AAA repair - Immunizations Immunizations up to date: Yes Hx Diphtheria, Pertussis, Tetanus Vaccination: Yes Hx Pneumococcal Vaccination: 07/11/17 Review of Systems - Review of Systems Constitutional: No symptoms reported EENT: See HPI, Nose congestion Cardiovascular: No symptoms reported Respiratory: See HPI, Cough, Short of breath, Sputum, Wheezing Gastrointestinal: No symptoms reported Genitourinary: No symptoms reported Male Genitourinary: No symptoms reported Musculoskeletal: No symptoms reported Skin: No symptoms reported Hematologic/Lymphatic: No symptoms reported Neurological/Psychological: No symptoms reported -: Yes All other systems reviewed and negative Physical Exam - Vital signs Vitals: Temp Pulse BP Pulse Ox 98.0 F 86 116/65 88 L 08/17/19 13:10 08/17/19 13:10 08/17/19 13:10 08/17/19 13:10 - Notes Notes: Physical Exam: General: Alert, oxygen saturation of 95% on 2L nasal cannula. HEENT: Normocephalic. Atraumatic. PERRL. Extraocular movements intact. Oropharynx clear. Neck: Supple. Non-tender. Respiratory: Wheezing and rhonchi bilaterally consistent with COPD history. Cardiovascular: Regular rate and rhythm. Abdominal: Normal Inspection. Non-tender. No distension. Normal Bowel Sounds. Back: No gross abnormalities. Extremities: Moves all four extremities. Upper extremities: Normal inspection. Normal ROM. Lower extremities: Normal inspection. No edema. Normal ROM. Neurological: Normal cognition. AAOx4. Normal speech. Psychological: Normal affect. Normal Mood. Skin: Warm. Dry. Normal color. Course - Re-evaluation Re-evalutation: 08/17/19 17:09 Patient states he is feeling better at this time. - Vital Signs Vital signs: Temp Pulse Resp BP Pulse Ox 98.0 F 63 20 132/90 H 93 08/17/19 13:33 08/17/19 13:33 08/17/19 16:01 08/17/19 16:01 08/17/19 16:01 - Laboratory Result Diagrams: 08/17/19 13:20 08/17/19 13:20 Laboratory results interpreted by me: 08/17/19 08/17/19 08/17/19 13:20 13:20 13:20 RBC 3.63 L Hgb 12.4 L Hct 36.5 L MCV 100 H MCH 34.0 H RDW 14.2 H Plt Count 149 L Lymph % (Auto) 8.6 L Walker % (Auto) 16.6 H BUN 45 H Creatinine 1.69 H Est GFR ( Amer) 47 L Est GFR (MDRD) Non-Af 39 L Glucose 114 H Creatine Kinase 42 L NT-Pro-B Natriuret Pep 2100 H - Diagnostic Test Radiology reviewed: Reports reviewed - EKG Interpretation by Me Additional EKG results interpreted by me: 08/17/19 17:10 EKG performed on 08/17/2019 was performed at 1411 hrs. EKG was interpreted by this MD. Findings: Ventricular paced rhythm, nonspecific ST segments. Discharge - Discharge Clinical Impression: Acute sinusitis, unspecified Condition: Good Disposition: HOME, SELF-CARE Additional Instructions: Return to the Emergency Department without delay if any worse. Sinusitis You have sinusitis, an infection of the sinus cavities of the face. The sinuses are air-filled chambers which open into the inside of the nose. Bacteria and pus fill a sinus, causing pain, drainage, and fever. Sinusitis is treated with antibiotics. Often, expectorants (to thin the sinus mucous) or decongestants (to reduce swelling) are prescribed as well. Healing requires seven to 10 days. Avoid chemical fumes, pollens, dusts, and smoke (especially cigarette smoke). Keep the air humidified in your bedroom and work area and take plenty of liquids by mouth. This condition can be serious if the infection spreads. If your symptoms worsen, or if you develop severe headache, high fever, stiff neck, or a rash, you must call the doctor or return for re-evaluation. HOME CARE INSTRUCTIONS & INFORMATION: Thank you for choosing us for your medical needs. We hope you're satisfied with the care you received. After you leave, you must properly care for your problem and, at the same time, observe its progress. Any condition can change. Some illnesses can change rapidly over hours or days. If your condition worsens, return to the Emergency Department or see your physician promptly. ABOUT YOUR X-RAYS AND EKG'S: If you had an EKG or X-rays taken, they have been read by the Emergency Physician. The X-rays and EKG's will also be read by a Radiologist or Sharebroker within 24 hours. If discrepancies are noted, you will be notified by telephone. Please be certain the ED has a correct telephone number & address where you can be reached. Also, realize that some fractures or abnormalities do not show up on initial X-rays. If your symptoms continue, see your physician. ABOUT YOUR LABORATORY TEST: If you had laboratory tests, the results have been reviewed by the Emergency Physician. Some test results (for example cultures) may not be available for several days. You will be contacted if any test result shows you need additional treatment. Please be certain the ED has a correct telephone number and address where you can be reached. ABOUT YOUR MEDICATIONS: You will receive instructions on how to take your med icine on the prescription label you receive. Additional information may be provided by the Pharmacy. If you have questions afterwards, call the ED for clarification or further instructions. Some prescribed medications may cause drowsiness. Do not perform tasks such as driving a car or operating machinery without consulting your Pharmacist. If you feel you need a refill of pain medication, your condition will need re-evaluation. Please do not call for a refill of any medication. ABOUT YOUR SIGNATURE: Signature of this document acknowledges to followin. Understanding that you received emergency treatment and that you may be released before al medical problems are known or treated. Please be certain the ED has a correct phone number & address where you can be reached. 2. Acknowledgement that you will arrange for follow-up care as recommended. 3. Authorization for the Emergency Physician to provide information to your follow-up Physician in order to maximize your care. AT ANY TIME, IF YOUR SYMPTOMS CHANGE SIGNIFICANTLY OR WORSEN OR YOU DEVELOP NEW SYMPTOMS, RETURN TO THE EMERGENCY DEPARTMENT IMMEDIATELY FOR RE-EVALUATION. OUR GOAL IS TO PROVIDE EXCELLENT MEDICAL CARE! WE HOPE THAT WE HAVE MET YOUR EXPECTATIONS DURING YOUR EMERGENCY DEPARTMENT VISIT AND THAT YOU FEEL YOU HAVE RECEIVED EXCELLENT CARE! Prescriptions: Prednisone [Deltasone 10 mg Tablet] 10 mg PO ASDIR PRN #21 tablet PRN Reason: Cefdinir [Omnicef 300 mg Capsule] 2 cap PO BID #20 capsule Referrals: MARY ANN SIM MD [Primary Care Provider] - Follow up as needed I personally performed the services described in the documentation, reviewed and edited the documentation which was dictated to the scribe in my presence, and it accurately records my words and actions.
[2019-08-17 17:49] VITALS: BP 143/56
--- NOTE | 2019-08-17 20:06 | EKG REPORT ---
SEVERITY:- ABNORMAL ECG - VENTRICULAR-PACED RHYTHM : Confirmed by: January James MD 17-Aug-2019 20:05:28
== END 2019-08-17 17:18 | disposition home or self-care (01) ==
LOC: ER 13:04
DX: J01.90 Acute sinusitis, unspecified (principal); R06.02 Shortness of breath; R09.81 Nasal congestion; J44.9 Chronic obstructive pulmonary disease, unspecified; Z99.81 Dependence on supplemental oxygen; Z87.891 Personal history of nicotine dependence; I50.9 Heart failure, unspecified; I11.0 Hypertensive heart disease with heart failure
CPT/HCPCS: 93005; 94640; 99285; 96374; 36415; 82553; 82550; 85025; 80053; 81001; 84484; 83880; 71045; 93010; J2930; A9270; J7620

== ENCOUNTER → 2019-08-23 | Outpatient (CLI) | payer MEDICARE, BC ==
[2019-08-23 11:28] LABS: HEMATOCRIT 38.6 % (37.9-51.0); HEMOGLOBIN 13.3 g/dL (13.5-17.0); MEAN CORPUSCULAR HGB CONC 34.5 g/dL (32.0-36.0); MEAN CORPUSCULAR VOLUME 99 fl (80-97); PLATELET COUNT 172 10^3/uL (150-450); RED BLOOD COUNT 3.91 10^6/uL (4.35-5.55); RED CELL DISTRIBUTION WIDTH 13.8 % (11.5-14.0); WHITE BLOOD COUNT 9.5 10^3/uL (4.0-10.5)
[2019-08-23 11:32] LABS: APPEARANCE,URINE CLEAR; BILIRUBIN,URINE NEGATIVE (NEGATIVE); COLOR,URINE YELLOW; GLUCOSE, URINE NEGATIVE (NEGATIVE); KETONES,URINE NEGATIVE (NEGATIVE); LEUKOCYTE ESTERASE,URINE NEGATIVE (NEGATIVE); NITRITE,URINE NEGATIVE (NEGATIVE); PROTEIN,URINE NEGATIVE (NEGATIVE); URINE SPECIFIC GRAVITY 1.013; UROBILINOGEN,URINE NEGATIVE mg/dL (<2.0)
[2019-08-23 11:48] LABS: BASOPHILS % (MANUAL) 0 % (0-2); EOSINOPHILS % (MANUAL) 1 % (0-6); LYMPHOCYTES % (MANUAL) 10 % (13-45); MONOCYTES % (MANUAL) 11 % (3-13); SEGMENTED NEUTROPHILS % (MAN) 78 % (42-78); TOTAL CELLS COUNTED 100
[2019-08-23 11:49] LABS: RBC MORPHOLOGY COMMENT NORMO-CYTIC/CHROMIC
[2019-08-23 11:50] LABS: POLYCHROMASIA SLIGHT
[2019-08-23 11:51] LABS: PLATELET COMMENT ADEQUATE
[2019-08-23 12:27] LABS: ALBUMIN 4.1 g/dL (3.5-5.0); ALKALINE PHOSPHATASE 70 U/L (38-126); ANION GAP 13 (5-19); ASPARTATE AMINO TRANSFERASE 23 U/L (17-59); BILIRUBIN,DIRECT 0.2 mg/dL (0.0-0.4); BILIRUBIN,TOTAL 0.7 mg/dL (0.2-1.3); BLOOD UREA NITROGEN 50 mg/dL (7-20); CARBON DIOXIDE 29 mmol/L (22-30); CHLORIDE 99 mmol/L (98-107); CHOLESTEROL 125.78 mg/dL (0-200); GLUCOSE 99 mg/dL (75-110); PHOSPHORUS 3.8 mg/dL (2.5-4.5); TOTAL PROTEIN 8.1 g/dL (6.3-8.2); TRIGLYCERIDES 109 mg/dL (<150)
[2019-08-23 12:38] LABS: DIRECT LDL 62 mg/dL (<100)
[2019-08-24 10:37] LABS: CREATININE URINE 51.6 mg/dL (Not Estab.); MICROALBUMIN URINE 8.8 ug/mL (Not Estab.)
== END ==
LOC: OD 10:44
PROVIDERS: ATTEND Internal Medicine Nephrology
DX: N18.3 Chronic kidney disease, stage 3 (moderate) (principal); D64.9 Anemia, unspecified; E78.2 Mixed hyperlipidemia
CPT/HCPCS: 36415; 80053; 80061; 81001; 82043; 82306; 82570; 83970; 84100; 85025

== ENCOUNTER → 2019-11-28 | Outpatient (CLI) | payer MEDICARE, BC ==
[2019-11-28 11:11] LABS: HEMATOCRIT 36.2 % (37.9-51.0); HEMOGLOBIN 12.7 g/dL (13.5-17.0); MEAN CORPUSCULAR HEMOGLOBIN 34.9 pg (27.0-33.4); MEAN CORPUSCULAR HGB CONC 35.1 g/dL (32.0-36.0); MEAN CORPUSCULAR VOLUME 99 fl (80-97); RED BLOOD COUNT 3.64 10^6/uL (4.35-5.55); RED CELL DISTRIBUTION WIDTH 14.1 % (11.5-14.0)
[2019-11-28 11:19] LABS: APPEARANCE,URINE CLEAR; BILIRUBIN,URINE NEGATIVE (NEGATIVE); COLOR,URINE YELLOW; GLUCOSE, URINE NEGATIVE (NEGATIVE); KETONES,URINE NEGATIVE (NEGATIVE); LEUKOCYTE ESTERASE,URINE NEGATIVE (NEGATIVE); NITRITE,URINE NEGATIVE (NEGATIVE); PROTEIN,URINE NEGATIVE (NEGATIVE); UROBILINOGEN,URINE NEGATIVE mg/dL (<2.0)
[2019-11-28 11:26] LABS: BLOOD UREA NITROGEN 46 mg/dL (7-20); CALCIUM 9.9 mg/dL (8.4-10.2); CARBON DIOXIDE 22 mmol/L (22-30); CHLORIDE 102 mmol/L (98-107); GLUCOSE 99 mg/dL (75-110); POTASSIUM 4.7 mmol/L (3.6-5.0)
[2019-11-28 11:27] LABS: ALBUMIN 4.3 g/dL (3.5-5.0); ALKALINE PHOSPHATASE 66 U/L (38-126); ANION GAP 14 (5-19); ASPARTATE AMINO TRANSFERASE 39 U/L (17-59); BILIRUBIN,DIRECT 0.4 mg/dL (0.0-0.4); BILIRUBIN,TOTAL 1.1 mg/dL (0.2-1.3); TOTAL PROTEIN 8.4 g/dL (6.3-8.2)
[2019-11-28 11:36] LABS: PLATELET COUNT 152 10^3/uL (150-450)
== END ==
LOC: OD 10:20
PROVIDERS: ATTEND Internal Medicine Cardiovascular Disease
DX: I48.19 Other persistent atrial fibrillation (principal); Z79.01 Long term (current) use of anticoagulants; Z79.899 Other long term (current) drug therapy
CPT/HCPCS: 36415; 80048; 80076; 81001; 82272; 85027; 85730

== ENCOUNTER 2019-12-24 07:02 | Emergency (ER) | payer MEDICARE, BC ==
[2019-12-24 07:50] LABS: HEMATOCRIT 35.5 % (37.9-51.0); HEMOGLOBIN 12.3 g/dL (13.5-17.0); MEAN CORPUSCULAR HEMOGLOBIN 34.8 pg (27.0-33.4); MEAN CORPUSCULAR HGB CONC 34.8 g/dL (32.0-36.0); MEAN CORPUSCULAR VOLUME 100 fl (80-97); PLATELET COUNT 138 10^3/uL (150-450); RED BLOOD COUNT 3.55 10^6/uL (4.35-5.55); RED CELL DISTRIBUTION WIDTH 14.5 % (11.5-14.0); WHITE BLOOD COUNT 12.1 10^3/uL (4.0-10.5)
[2019-12-24 08:04] LABS: ALBUMIN 4.1 g/dL (3.5-5.0); ALKALINE PHOSPHATASE 82 U/L (38-126); ANION GAP 10 (5-19); ASPARTATE AMINO TRANSFERASE 29 U/L (17-59); BILIRUBIN,DIRECT 0.2 mg/dL (0.0-0.4); BILIRUBIN,TOTAL 1.3 mg/dL (0.2-1.3); BLOOD UREA NITROGEN 53 mg/dL (7-20); CALCIUM 9.2 mg/dL (8.4-10.2); CARBON DIOXIDE 23 mmol/L (22-30); CHLORIDE 102 mmol/L (98-107); CREATINE KINASE 39 U/L (55-170); GLUCOSE 140 mg/dL (75-110); POTASSIUM 4.6 mmol/L (3.6-5.0); TOTAL PROTEIN 7.6 g/dL (6.3-8.2)
--- NOTE | 2019-12-24 08:10 | RADIOLOGY REPORT (SQ) ---
EXAM DESCRIPTION: CHEST SINGLE VIEW IMAGES COMPLETED DATE/TIME: 12/24/2019 7:56 am REASON FOR STUDY: COPD exacerbation with fever COMPARISON: 08/17/2019 EXAM PARAMETERS: NUMBER OF VIEWS: One view. TECHNIQUE: Single frontal radiographic view of the chest acquired. RADIATION DOSE: NA LIMITATIONS: None. FINDINGS: LUNGS AND PLEURA: No opacities, masses or pneumothorax. No pleural effusion. MEDIASTINUM AND HILAR STRUCTURES: No masses. Contour normal. HEART AND VASCULAR STRUCTURES: Heart remains enlarged. No failure. BONES: No acute findings. HARDWARE: Unchanged. Sternotomy wires are in place along with battery pack and leads. OTHER: No other significant finding. IMPRESSION: Cardiomegaly stable. No acute findings. TECHNICAL DOCUMENTATION: JOB ID: [id number] 2010 [employer]- All Rights Reserved Reading location - IP/workstation name: [email or web address]
[2019-12-24 08:17] LABS: ABSOLUTE LYMPHOCYTES# (MANUAL) 0.5 10^3/uL (0.5-4.7); ABSOLUTE MONOCYTES # (MANUAL) 1.7 10^3/uL (0.1-1.4); BASOPHILS % (MANUAL) 0 % (0-2); EOSINOPHILS % (MANUAL) 0 % (0-6); LYMPHOCYTES % (MANUAL) 4 % (13-45); MONOCYTES % (MANUAL) 14 % (3-13); SEGMENTED NEUTROPHILS % (MAN) 82 % (42-78); TOTAL CELLS COUNTED 100
[2019-12-24 08:18] LABS: ANISOCYTOSIS SLIGHT; PLATELET COMMENT DECREASED
[2019-12-24] MEDS ORDERED: LEVOFLOXACIN 750 MG/D5W RTU 750 MG/150 ML RTUPB IV ONE (08:34)
--- NOTE | 2019-12-24 08:34 | ER Document Report ---
Entered by BESSIE MARTINEZ SCRIBE 12/24/19 0733 Acting as scribe for:JONI MEEKS MD ED Fever - General Chief Complaint: Fever Stated Complaint: FEVER Time Seen by Provider: 12/24/19 07:20 Primary Care Provider: AMINTA HOLT MD [Primary Care Provider] - Follow up as needed Mode of Arrival: Medic Information source: Patient, [facility] Records Notes: This 89 year old male patient presents to the emergency department today with complaints of chills and fevers beginning last night along with a productive cough for quite a while. Patient has COPD so he states that having a productive cough isn't unusual for him. Patient reports that for the past several days he has been coughing up a yellow-brown sputum, but adds that the chills and fever are new since last night. Patient states the current leg swelling that he has not is about baseline for him, mentioning that if he eats too much salt he swells more. Prehospital interventions: DuoNeb, Solu-Medrol, and 975 mg of Tylenol Pertinent PMHx/PSHx: COPD - additional PMHx/PSHx not pertinent to this visit as recorded. TRAVEL OUTSIDE OF THE [place] IN LAST 30 DAYS: No - Related Data Allergies/Adverse Reactions: No Known Allergies Allergy (Verified 11/15/18 12:43) Past Medical History - General Information source: Patient - Social History Smoking Status: Current Every Day Smoker Cigarette use (# per day): Yes Frequency of alcohol use: None Drug Abuse: None Lives with: Family Family History: Reviewed & Not Pertinent, COPD - Past Medical History Cardiac Medical History: Reports: Hx Atrial Fibrillation, Hx Congestive Heart Failure - Diastolic dysfunction, Hx Coronary Artery Disease - CAROIDECTOMY LEFT SIDE, Hx Heart Attack, Hx Hypercholesterolemia, Hx Hypertension, Hx Peripheral Vascular Disease Pulmonary Medical History: Reports: Hx Asthma, Hx Bronchitis, Hx COPD, Hx Pneumonia, Hx Sleep Apnea - On CPAP at home Renal/ Medical History: Reports: Hx Benign Prostatic Hyperplasia Malignancy Medical History: Reports Hx Skin Cancer GI Medical History: Reports: Hx Gastroesophageal Reflux Disease Musculoskeletal Medical History: Reports Hx Arthritis Psychiatric Medical History: Reports: Hx Depression Past Surgical History: Reports: Hx Cardiac Surgery - quad. bypass in 08, Hx Coronary Artery Bypass Graft, Hx Pacemaker - medtronic, Hx Vascular Surgery - Left carotid endarterectomy. Endovascular AAA repair - Immunizations Immunizations up to date: Yes Hx Diphtheria, Pertussis, Tetanus Vaccination: Yes Hx Pneumococcal Vaccination: 07/11/17 Review of Systems - Review of Systems Constitutional: See HPI, Chills, Fever EENT: No symptoms reported Cardiovascular: No symptoms reported Respiratory: See HPI, Cough, Short of breath Gastrointestinal: No symptoms reported Genitourinary: No symptoms reported Male Genitourinary: No symptoms reported Musculoskeletal: No symptoms reported Skin: No symptoms reported Hematologic/Lymphatic: No symptoms reported Neurological/Psychological: No symptoms reported -: Yes All other systems reviewed and negative Physical Exam - Vital signs Vitals: Resp 16 12/24/19 07:05 - Notes Notes: Physical Exam: General: Alert, appears age appropriate. HEENT: Normocephalic. Atraumatic. PERRL. Extraocular movements intact. Oropharynx clear. Neck: Supple. Non-tender. Respiratory: Does not appear very short of breath now, states breathing treatments from EMS have helped a lot. Mile wheezing and rhonchi bilaterally. Cardiovascular: Regular rate and rhythm. Abdominal: Normal Inspection. Non-tender. No distension. Normal Bowel Sounds. Back: No gross abnormalities. Extremities: Moves all four extremities. Upper extremities: Normal inspection. Normal ROM. Lower extremities: 2+ pitting edema to lower extremities. Neurological: Normal cognition. AAOx4. Normal speech. Psychological: Normal affect. Normal Mood. Skin: Hot to the touch. Dry. Normal color. Course - Re-evaluation Re-evalutation: 12/24/19 09:44 After Tylenol and breathing treatments, patient reports that he feels much bet ter. He is not short of breath at this time. He was on a nonrebreather mask at 9 L O2. I turned this oxygen down to 4 L and he does maintain his oxygen saturation at 96%. I will have him changed over to a nasal cannula and see how he does on the same oxygen regimen he uses at home. - Vital Signs Vital signs: Temp Pulse Resp BP Pulse Ox 98.9 F 15 137/68 H 93 12/24/19 11:31 12/24/19 11:31 12/24/19 11:31 12/24/19 11:31 - Laboratory Result Diagrams: 12/24/19 07:26 12/24/19 07:26 Laboratory results interpreted by me: 12/24/19 12/24/19 12/24/19 07:26 07:26 07:26 WBC 12.1 H RBC 3.55 L Hgb 12.3 L Hct 35.5 L MCV 100 H MCH 34.8 H RDW 14.5 H Plt Count 138 L Seg Neuts % (Manual) 82 H Lymphocytes % (Manual) 4 L Monocytes % (Manual) 14 H Abs Neuts (Manual) 9.9 H Abs Monocytes (Manual) 1.7 H Sodium 135.1 L BUN 53 H Creatinine 2.11 H Est GFR ( Amer) 36 L Est GFR (MDRD) Non-Af 30 L Glucose 140 H Lactic Acid Creatine Kinase 39 L NT-Pro-B Natriuret Pep 2750 H Urine Ascorbic Acid 12/24/19 12/24/19 07:35 10:25 WBC RBC Hgb Hct MCV MCH RDW Plt Count Seg Neuts % (Manual) Lymphocytes % (Manual) Monocytes % (Manual) Abs Neuts (Manual) Abs Monocytes (Manual) Sodium BUN Creatinine Est GFR ( Amer) Est GFR (MDRD) Non-Af Glucose Lactic Acid 2.6 H Creatine Kinase NT-Pro-B Natriuret Pep Urine Ascorbic Acid 40 H - Diagnostic Test Radiology reviewed: Image reviewed, Reports reviewed - Chest x-ray shows stable cardiomegaly without acute findings. - EKG Interpretation by Pa EKG shows normal: [place], Intervals, QRS Complexes, ST-T Waves Rate: Normal - 68 Rhythm: Other - Ventricular paced rhythm When compared to previous EKG there are: No significant change Critical Care Note - Critical Care Note Total time excluding time spent on procedures (mins): 35 Discharge - Discharge Clinical Impression: Acute exacerbation of chronic obstructive pulmonary disease (COPD), CKD (chronic kidney disease), stage III Fever Qualifiers: Fever type: unspecified Qualified Code(s): R50.9 - Fever, unspecified Leukocytosis Qualifiers: Leukocytosis type: unspecified Qualified Code(s): D72.829 - Elevated white blood cell count, unspecified Condition: Stable Disposition: HOME, SELF-CARE Additional Instructions: Chronic Obstructive Lung Disease You have chronic obstructive lung disease (COPD). The symptoms come from e mphysema (damage to small airways, with trapping of air in large sacks in the lung) and chronic bronchitis (repeated infection and damage to larger airways). The cause is almost always cigarette smoking, although dust exposure, asthma, and infections contribute. You should avoid fumes, dust, and smoke (especially tobacco smoke). Your condition will flare from time to time. There is no cure, but the symptoms can be treated. Bronchodilators (asthma medicine) are often helpful. Antibiotics help when infection is present. When shortness of breath is severe, we may prescribe cortisone medication. If medicine doesn't help enough, we can arrange for you to have an oxygen tank at home. Notify your doctor at once if sputum becomes thick, foul, or bloody, if you develop a fever or chest pain, or if your shortness of breath worsens. Start the Levaquin as prescribed tomorrow afternoon. Start taking the prednisone today. Increase your water intake for the next few days. Take Tylenol for fever as needed. Use your nebulizer every 2-4 hours as needed for wheezing. Follow-up with your primary care provider and/or your pulmonary medicine doctor if not improving. RETURN TO THE EMERGENCY ROOM IF ANY NEW OR WORSENING SYMPTOMS. Prescriptions: Prednisone [Deltasone 20 mg Tablet] 20 mg PO BID #10 tablet Levofloxacin [Levaquin 250 mg Tablet] 250 mg PO DAILY #9 tablet Referrals: AMINTA HOLT MD [Primary Care Provider] - Follow up as needed I personally performed the services described in the documentation, reviewed and edited the documentation which was dictated to the scribe in my presence, and it accurately records my words and actions.
[2019-12-24] MEDS ORDERED: IPRATROPIUM/ALBUTEROL 0.5-2.5 MG/3 ML AMPUL NEB ONE (08:35)
[2019-12-24 09:44] LABS: A TYPE INFLUENZA AG NEGATIVE (NEGATIVE); B INFLUENZA AG NEGATIVE (NEGATIVE)
[2019-12-24 10:15] LABS: VENOUS BLOOD BASE EXCESS -0.1 mmol/L; VENOUS BLOOD HCO3 25.3 mmol/L (20-32); VENOUS BLOOD PCO2 43.7 mmHg (35-63); VENOUS BLOOD PH 7.38 (7.30-7.42)
[2019-12-24 10:38] LABS: APPEARANCE,URINE CLEAR; BILIRUBIN,URINE NEGATIVE (NEGATIVE); COLOR,URINE YELLOW; GLUCOSE, URINE NEGATIVE (NEGATIVE); KETONES,URINE NEGATIVE (NEGATIVE); LEUKOCYTE ESTERASE,URINE NEGATIVE (NEGATIVE); NITRITE,URINE NEGATIVE (NEGATIVE); PROTEIN,URINE NEGATIVE (NEGATIVE); URINE SPECIFIC GRAVITY 1.013; UROBILINOGEN,URINE NEGATIVE mg/dL (<2.0)
[2019-12-24 12:00] VITALS: BP 137/68
--- NOTE | 2019-12-24 17:43 | EKG REPORT ---
SEVERITY:- ABNORMAL ECG - VENTRICULAR-PACED RHYTHM : Confirmed by: Suman Elizabeth MD 24-Dec-2019 17:42:16
== END 2019-12-24 11:45 | disposition home or self-care (01) ==
LOC: ER 07:02
DX: J44.1 Chronic obstructive pulmonary disease with (acute) exacerbation (principal); D72.829 Elevated white blood cell count, unspecified; R50.9 Fever, unspecified; F17.210 Nicotine dependence, cigarettes, uncomplicated; I13.0 Hypertensive heart and chronic kidney disease with heart failure and stage 1 through stage 4 chronic kidney disease, or unspecified chronic kidney disease; N18.3 Chronic kidney disease, stage 3 (moderate); I50.9 Heart failure, unspecified; I48.91 Unspecified atrial fibrillation; I25.2 Old myocardial infarction; Z95.0 Presence of cardiac pacemaker
CPT/HCPCS: 93005; 94640; 99291; 96365; 96366; 36415; 87040; 82550; 83605; 85025; 80053; 81001; 84484; 82803; 87804; 83880; 71045; 93010; J1956; A9270; J7620

== ENCOUNTER → 2020-02-26 | Outpatient (CLI) | payer MEDICARE, BC ==
[2020-02-26 10:25] LABS: ABSOLUTE EOSINOPHILS # (AUTO) 0.3 10^3/uL (0.0-0.6); ABSOLUTE LYMPHOCYTES (AUTO) 0.8 10^3/uL (0.5-4.7); ABSOLUTE MONOCYTES (AUTO) 0.9 10^3/uL (0.1-1.4); ABSOLUTE NEUT (AUTO) 4.2 10^3/uL (1.7-8.2); BASOPHILS % (AUTO) 0.6 % (0-2); EOSINOPHILS % (AUTO) 5.2 % (0-6); HEMATOCRIT 36.5 % (37.9-51.0); HEMOGLOBIN 12.5 g/dL (13.5-17.0); LYMPHOCYTES % (AUTO) 12.7 % (13-45); MEAN CORPUSCULAR HGB CONC 34.2 g/dL (32.0-36.0); MEAN CORPUSCULAR VOLUME 99 fl (80-97); MONOCYTES % (AUTO) 14.2 % (3-13); PLATELET COUNT 174 10^3/uL (150-450); RED BLOOD COUNT 3.68 10^6/uL (4.35-5.55); SEGMENTED NEUTROPHILS % (AUTO) 67.3 % (42-78); TOTAL CELLS COUNTED % (AUTO) 100 %; WHITE BLOOD COUNT 6.2 10^3/uL (4.0-10.5)
[2020-02-26 10:26] LABS: APPEARANCE,URINE CLEAR; BILIRUBIN,URINE NEGATIVE (NEGATIVE); COLOR,URINE YELLOW; GLUCOSE, URINE NEGATIVE (NEGATIVE); KETONES,URINE NEGATIVE (NEGATIVE); LEUKOCYTE ESTERASE,URINE NEGATIVE (NEGATIVE); NITRITE,URINE NEGATIVE (NEGATIVE); PROTEIN,URINE NEGATIVE (NEGATIVE); URINE SPECIFIC GRAVITY 1.016; UROBILINOGEN,URINE NEGATIVE mg/dL (<2.0)
[2020-02-26 10:53] LABS: ALKALINE PHOSPHATASE 84 U/L (38-126); ANION GAP 10 (5-19); ASPARTATE AMINO TRANSFERASE 24 U/L (17-59); BILIRUBIN,TOTAL 0.7 mg/dL (0.2-1.3); BLOOD UREA NITROGEN 54 mg/dL (7-20); CARBON DIOXIDE 26 mmol/L (22-30); CHLORIDE 102 mmol/L (98-107); CHOLESTEROL 182.08 mg/dL (0-200); GLUCOSE 96 mg/dL (75-110); PHOSPHORUS 3.9 mg/dL (2.5-4.5); POTASSIUM 4.6 mmol/L (3.6-5.0); TOTAL PROTEIN 7.9 g/dL (6.3-8.2); TRIGLYCERIDES 124 mg/dL (<150)
[2020-02-26 11:04] LABS: DIRECT LDL 113 mg/dL (<100)
[2020-02-27 10:36] LABS: CREATININE URINE 101.3 mg/dL (Not Estab.); MICROALBUMIN URINE 6.7 ug/mL (Not Estab.)
== END ==
LOC: OD 09:42
PROVIDERS: ATTEND Internal Medicine Nephrology
DX: N18.3 Chronic kidney disease, stage 3 (moderate) (principal); D63.1 Anemia in chronic kidney disease; E78.00 Pure hypercholesterolemia, unspecified
CPT/HCPCS: 36415; 80053; 80061; 81001; 82043; 82306; 82570; 83970; 84100; 85025

== ENCOUNTER → 2020-03-10 | Outpatient (CLI) | payer MEDICARE, BC ==
[2020-03-10 08:41] LABS: HEMATOCRIT 36.2 % (37.9-51.0); HEMOGLOBIN 12.3 g/dL (13.5-17.0); MEAN CORPUSCULAR HEMOGLOBIN 34.2 pg (27.0-33.4); MEAN CORPUSCULAR HGB CONC 33.9 g/dL (32.0-36.0); MEAN CORPUSCULAR VOLUME 101 fl (80-97); PLATELET COUNT 159 10^3/uL (150-450); RED BLOOD COUNT 3.59 10^6/uL (4.35-5.55); RED CELL DISTRIBUTION WIDTH 14.4 % (11.5-14.0); WHITE BLOOD COUNT 5.4 10^3/uL (4.0-10.5)
[2020-03-10 08:50] LABS: APPEARANCE,URINE CLEAR; BILIRUBIN,URINE NEGATIVE (NEGATIVE); COLOR,URINE STRAW; GLUCOSE, URINE NEGATIVE (NEGATIVE); KETONES,URINE NEGATIVE (NEGATIVE); LEUKOCYTE ESTERASE,URINE NEGATIVE (NEGATIVE); NITRITE,URINE NEGATIVE (NEGATIVE); PROTEIN,URINE NEGATIVE (NEGATIVE); URINE SPECIFIC GRAVITY 1.009; UROBILINOGEN,URINE NEGATIVE mg/dL (<2.0)
[2020-03-10 09:13] LABS: ALBUMIN 4.2 g/dL (3.5-5.0); ALKALINE PHOSPHATASE 79 U/L (38-126); ANION GAP 10 (5-19); ASPARTATE AMINO TRANSFERASE 25 U/L (17-59); BILIRUBIN,TOTAL 0.9 mg/dL (0.2-1.3); BLOOD UREA NITROGEN 40 mg/dL (7-20); CARBON DIOXIDE 28 mmol/L (22-30); CHLORIDE 100 mmol/L (98-107); GLUCOSE 100 mg/dL (75-110); POTASSIUM 4.2 mmol/L (3.6-5.0); TOTAL PROTEIN 8.1 g/dL (6.3-8.2)
== END ==
LOC: OD 08:00
PROVIDERS: ATTEND Internal Medicine Cardiovascular Disease
DX: Z79.899 Other long term (current) drug therapy (principal); I48.0 Paroxysmal atrial fibrillation; Z79.01 Long term (current) use of anticoagulants
CPT/HCPCS: 36415; 80048; 80076; 81001; 82272; 85027; 85730

== ENCOUNTER → 2020-05-01 | Outpatient (CLI) | payer MEDICARE, BC ==
[2020-05-01 11:02] LABS: ALBUMIN 4.3 g/dL (3.5-5.0); ALKALINE PHOSPHATASE 77 U/L (38-126); ASPARTATE AMINO TRANSFERASE 23 U/L (17-59); BILIRUBIN,DIRECT 0.1 mg/dL (0.0-0.4); BILIRUBIN,TOTAL 0.7 mg/dL (0.2-1.3); CHOLESTEROL 180.63 mg/dL (0-200); TOTAL PROTEIN 7.8 g/dL (6.3-8.2); TRIGLYCERIDES 140 mg/dL (<150)
[2020-05-01 11:14] LABS: DIRECT LDL 115 mg/dL (<100)
== END ==
LOC: OD 09:50
PROVIDERS: ATTEND Physician Assistant
DX: E78.2 Mixed hyperlipidemia (principal); I50.9 Heart failure, unspecified; Z79.899 Other long term (current) drug therapy
CPT/HCPCS: 36415; 80061; 80076; 83880

== ENCOUNTER → 2020-06-15 | Outpatient (CLI) | payer MEDICARE, BC ==
[2020-06-15 10:44] LABS: HEMATOCRIT 36.8 % (37.9-51.0); HEMOGLOBIN 12.9 g/dL (13.5-17.0); MEAN CORPUSCULAR HEMOGLOBIN 34.9 pg (27.0-33.4); MEAN CORPUSCULAR HGB CONC 35.2 g/dL (32.0-36.0); MEAN CORPUSCULAR VOLUME 99 fl (80-97); PLATELET COUNT 147 10^3/uL (150-450); RED BLOOD COUNT 3.71 10^6/uL (4.35-5.55); RED CELL DISTRIBUTION WIDTH 13.6 % (11.5-14.0)
[2020-06-15 10:47] LABS: APPEARANCE,URINE CLEAR; BILIRUBIN,URINE NEGATIVE (NEGATIVE); COLOR,URINE YELLOW; GLUCOSE, URINE NEGATIVE (NEGATIVE); KETONES,URINE NEGATIVE (NEGATIVE); LEUKOCYTE ESTERASE,URINE NEGATIVE (NEGATIVE); NITRITE,URINE NEGATIVE (NEGATIVE); PROTEIN,URINE NEGATIVE (NEGATIVE); UROBILINOGEN,URINE NEGATIVE mg/dL (<2.0)
[2020-06-15 11:09] LABS: ALBUMIN 4.4 g/dL (3.5-5.0); ALKALINE PHOSPHATASE 77 U/L (38-126); ANION GAP 12 (5-19); ASPARTATE AMINO TRANSFERASE 24 U/L (17-59); BILIRUBIN,DIRECT 0.3 mg/dL (0.0-0.4); BILIRUBIN,TOTAL 0.8 mg/dL (0.2-1.3); BLOOD UREA NITROGEN 54 mg/dL (7-20); CALCIUM 9.8 mg/dL (8.4-10.2); CARBON DIOXIDE 25 mmol/L (22-30); CHLORIDE 100 mmol/L (98-107); GLUCOSE 95 mg/dL (75-110); POTASSIUM 4.7 mmol/L (3.6-5.0)
== END ==
LOC: OD 09:37
PROVIDERS: ATTEND Internal Medicine Cardiovascular Disease
DX: I48.19 Other persistent atrial fibrillation (principal); Z79.01 Long term (current) use of anticoagulants; Z79.899 Other long term (current) drug therapy
CPT/HCPCS: 36415; 80048; 80076; 81001; 82272; 85027; 85730

== ENCOUNTER → 2020-06-24 | Outpatient (CLI) | payer MEDICARE, BC ==
[2020-06-24 15:23] LABS: ANION GAP 13 (5-19); BLOOD UREA NITROGEN 65 mg/dL (7-20); CALCIUM 10.2 mg/dL (8.4-10.2); CARBON DIOXIDE 23 mmol/L (22-30); CHLORIDE 100 mmol/L (98-107); GLUCOSE 97 mg/dL (75-110); POTASSIUM 4.6 mmol/L (3.6-5.0)
== END ==
LOC: OD 13:54
PROVIDERS: ATTEND Internal Medicine Cardiovascular Disease
DX: I11.0 Hypertensive heart disease with heart failure (principal); I50.9 Heart failure, unspecified
CPT/HCPCS: 36415; 80048; 83880

== ENCOUNTER → 2020-09-09 | Outpatient (CLI) | payer MEDICARE, BC ==
[2020-09-09 11:10] LABS: HEMATOCRIT 36.6 % (37.9-51.0); HEMOGLOBIN 12.8 g/dL (13.5-17.0); MEAN CORPUSCULAR HEMOGLOBIN 34.9 pg (27.0-33.4); MEAN CORPUSCULAR VOLUME 100 fl (80-97); PLATELET COUNT 174 10^3/uL (150-450); RED BLOOD COUNT 3.67 10^6/uL (4.35-5.55); RED CELL DISTRIBUTION WIDTH 13.6 % (11.5-14.0); WHITE BLOOD COUNT 5.2 10^3/uL (4.0-10.5)
[2020-09-09 11:24] LABS: APPEARANCE,URINE CLEAR; BILIRUBIN,URINE NEGATIVE (NEGATIVE); COLOR,URINE YELLOW; GLUCOSE, URINE NEGATIVE (NEGATIVE); KETONES,URINE NEGATIVE (NEGATIVE); LEUKOCYTE ESTERASE,URINE NEGATIVE (NEGATIVE); NITRITE,URINE NEGATIVE (NEGATIVE); PROTEIN,URINE NEGATIVE (NEGATIVE); UROBILINOGEN,URINE NEGATIVE mg/dL (<2.0)
[2020-09-09 11:30] LABS: ALBUMIN 4.2 g/dL (3.5-5.0); ALKALINE PHOSPHATASE 79 U/L (38-126); ANION GAP 10 (5-19); ASPARTATE AMINO TRANSFERASE 24 U/L (17-59); BILIRUBIN,DIRECT 0.2 mg/dL (0.0-0.4); BILIRUBIN,TOTAL 0.6 mg/dL (0.2-1.3); BLOOD UREA NITROGEN 52 mg/dL (7-20); CALCIUM 9.7 mg/dL (8.4-10.2); CARBON DIOXIDE 29 mmol/L (22-30); CHLORIDE 98 mmol/L (98-107); GLUCOSE 96 mg/dL (75-110); POTASSIUM 4.2 mmol/L (3.6-5.0); TOTAL PROTEIN 8.1 g/dL (6.3-8.2)
== END ==
LOC: OD 09:55
PROVIDERS: ATTEND Internal Medicine Cardiovascular Disease
DX: I48.19 Other persistent atrial fibrillation (principal); Z79.01 Long term (current) use of anticoagulants; Z79.899 Other long term (current) drug therapy
CPT/HCPCS: 36415; 80048; 80076; 81001; 82272; 85027; 85730

== ENCOUNTER → 2020-09-29 | Outpatient (CLI) | payer MEDICARE, BC ==
[2020-09-29 12:37] LABS: ABSOLUTE EOSINOPHILS # (AUTO) 0.2 10^3/uL (0.0-0.6); ABSOLUTE LYMPHOCYTES (AUTO) 0.5 10^3/uL (0.5-4.7); ABSOLUTE MONOCYTES (AUTO) 0.7 10^3/uL (0.1-1.4); ABSOLUTE NEUT (AUTO) 3.6 10^3/uL (1.7-8.2); BASOPHILS % (AUTO) 0.8 % (0-2); EOSINOPHILS % (AUTO) 3.3 % (0-6); HEMOGLOBIN 12.4 g/dL (13.5-17.0); LYMPHOCYTES % (AUTO) 10.3 % (13-45); MEAN CORPUSCULAR HEMOGLOBIN 33.9 pg (27.0-33.4); MEAN CORPUSCULAR HGB CONC 34.4 g/dL (32.0-36.0); MEAN CORPUSCULAR VOLUME 99 fl (80-97); MONOCYTES % (AUTO) 14.1 % (3-13); PLATELET COUNT 156 10^3/uL (150-450); RED BLOOD COUNT 3.65 10^6/uL (4.35-5.55); RED CELL DISTRIBUTION WIDTH 13.7 % (11.5-14.0); SEGMENTED NEUTROPHILS % (AUTO) 71.5 % (42-78); TOTAL CELLS COUNTED % (AUTO) 100 %
[2020-09-29 12:41] LABS: APPEARANCE,URINE CLEAR; BILIRUBIN,URINE NEGATIVE (NEGATIVE); COLOR,URINE YELLOW; GLUCOSE, URINE NEGATIVE (NEGATIVE); KETONES,URINE NEGATIVE (NEGATIVE); PROTEIN,URINE NEGATIVE (NEGATIVE); URINE SPECIFIC GRAVITY 1.012; UROBILINOGEN,URINE NEGATIVE mg/dL (<2.0)
[2020-09-29 13:00] LABS: ALKALINE PHOSPHATASE 75 U/L (38-126); ANION GAP 8 (5-19); ASPARTATE AMINO TRANSFERASE 28 U/L (17-59); BILIRUBIN,DIRECT 0.3 mg/dL (0.0-0.4); BILIRUBIN,TOTAL 0.6 mg/dL (0.2-1.3); BLOOD UREA NITROGEN 49 mg/dL (7-20); CALCIUM 9.8 mg/dL (8.4-10.2); CARBON DIOXIDE 27 mmol/L (22-30); CHLORIDE 103 mmol/L (98-107); CHOLESTEROL 186.41 mg/dL (0-200); GLUCOSE 101 mg/dL (75-110); PHOSPHORUS 3.8 mg/dL (2.5-4.5); POTASSIUM 4.3 mmol/L (3.6-5.0); TOTAL PROTEIN 7.7 g/dL (6.3-8.2); TRIGLYCERIDES 156 mg/dL (<150)
[2020-09-29 13:10] LABS: DIRECT LDL 115 mg/dL (<100)
[2020-09-29 13:15] LABS: VLDL CHOLESTEROL 31.2 mg/dL (10-31)
[2020-09-29 13:19] LABS: ANION GAP 8 (5-19); BLOOD UREA NITROGEN 49 mg/dL (7-20); CALCIUM 9.8 mg/dL (8.4-10.2); CARBON DIOXIDE 27 mmol/L (22-30); CHLORIDE 103 mmol/L (98-107); GLUCOSE 101 mg/dL (75-110); POTASSIUM 4.3 mmol/L (3.6-5.0)
[2020-09-30 13:37] LABS: CREATININE URINE 48.8 mg/dL (Not Estab.); MICROALBUMIN URINE 16.5 ug/mL (Not Estab.)
== END ==
LOC: OD 11:31
PROVIDERS: ATTEND Internal Medicine Nephrology
DX: I13.0 Hypertensive heart and chronic kidney disease with heart failure and stage 1 through stage 4 chronic kidney disease, or unspecified chronic kidney disease (principal); I50.9 Heart failure, unspecified; E78.00 Pure hypercholesterolemia, unspecified; N18.30 Chronic kidney disease, stage 3 unspecified; E21.1 Secondary hyperparathyroidism, not elsewhere classified; D63.1 Anemia in chronic kidney disease
CPT/HCPCS: 36415; 80048; 80061; 81001; 82043; 82306; 82570; 83880; 83970; 84100; 85025; 87070